=== PATIENT | female | born 1940 | race Caucasian/White ===

== ENCOUNTER 2021-09-22 13:00 | Outpatient (RCR) | payer MEDICARE, SELFPAY | END 2022-09-06 11:02 | disposition home or self-care (01) | PROVIDERS: PCP Physician Assistant Medical; Visit Provider Physician Assistant Medical | DX: I89.0 Lymphedema, not elsewhere classified (principal); Z51.89 Encounter for other specified aftercare | CPT/HCPCS: 97140; 97530; 97535 ==

== ENCOUNTER 2021-11-16 10:32 | Day surgery (SDC) | payer MEDICARE, SELFPAY ==
[2021-11-16 11:11] VITALS: BMI 28.5
[2021-11-16 11:17] VITALS: BP 122/59; PULSE 67; RESP 20; TEMP 36.3; O2SAT 97
[2021-11-16] MEDS: KETOROLAC OPHTH 0.5% 1 DROP EYE-RIGHT ×3 (11:35→12:28)
[2021-11-16] MEDS: TETRACAINE 0.5% OPHTH 1 DROP EYE-RIGHT (12:43)
[2021-11-16] MEDS: BALANCED SALT IRRIG SOLN 15 ML EYE-RIGHT (12:47)
[2021-11-16] MEDS: TRYPAN BLUE 0.5 ML SYRINGE EYE-RIGHT (12:47)
[2021-11-16] MEDS: BRIMONIDINE TARTRATE 0.2% OPHTH 1 DROP EYE-RIGHT (13:03)
--- NOTE | 2021-11-16 13:10 | W.ANESCHARGE ---
Anesthesia Charges Start Date/Time Anesthesia Start Date: 11/16/21 Anesthesia Start Time: 12:34 Stop Date/Time Anesthesia Stop Date: 11/16/21 Anesthesia Stop Time: 13:07 Summary Emergency: No Extremes of Age: Over 71-CPT 43387
--- NOTE | 2021-11-16 13:13 | W.ANESCHARGE ---
Anesthesia Charges Start Date/Time Anesthesia Start Date: 11/16/21 Anesthesia Start Time: 12:34 Stop Date/Time Anesthesia Stop Date: 11/16/21 Anesthesia Stop Time: 13:07 Summary Emergency: No Extremes of Age: Over 71-CPT 33487
[2021-11-16 13:17] VITALS: BP 137/65; PULSE 65; RESP 18; TEMP 36.2; O2SAT 97
--- NOTE | 2021-11-16 13:42 | SUR.PHASEII ---
Per Dr. Lang, patient is following up with Dr. Rivas. Post-op eye drops given per Dr. Rivas orders.
--- NOTE | 2021-11-16 14:32 | P.PCN_ITS ---
Procedure Note Date Seen: 11/16/21 Will [facility] bill your pro fee for this procedure?: No Procedure: NAME OF PROCEDURE Meera phacoemulsification, right eye, with posterior chamber lens implant. PREOPERATIVE DIAGNOSIS Nuclear sclerotic cortical combined cataract, right eye. POSTOPERATIVE DIAGNOSIS Nuclear sclerotic cortical combined cataract, right eye. INDICATIONS FOR PROCEDURE The patient has noted that his vision in the right eye is failing. Severity 7/10. Unable to correct with glasses/contact lenses; has disabling night glare when driving, difficulty reading. Because of this, the patient elected to proceed with surgical repair. I have explained the risks, benefits, alternative treatments to the patient including possible loss of the eye under correction, over correction, need for more surgery. The patient understands, accepts, and elects to proceed with surgical repair. PROCEDURE The right eye was dilated with a combination 1% Mydriacyl, 2.5% phenylephrine with topical Ocufen and Vigamox applied to the corneal surface. The patient was brought to the main operating room where under IV sedation, after pausing to identify the correct patient, correct intraoperative lens, power 28.5 diopters, the right eye was prepped and draped in usual sterile fashion for intraocular surgery. A lid speculum was placed and a paracentesis created at 12 o'clock. The chamber was filled with OVD air and trypan and entered temporally with a keratome. A continuous tear capsulotomy was performed. The nucleus was hydrodissected and emulsified with local anesthetic and emulsified in a chop technique in the capsular bag. Residual cortex was cleaned. The capsule was clear. At this point, ZCBOO 28.5 diopter posterior chamber lens implant was injected into the capsular bag and was well centered. Residual OVD was cleaned from behind the implant from the capsular bag. The incision hydrated and noted to be leak free. Topical Alphagan, pilocarpine, and Vigamox were applied to the corneal surface and the patient returned to recovery in good condition having tolerated the procedure well. CONDITION ON DISCHARGE Satisfactory. Surgeon: Sven Lang MD
== END 2021-11-16 13:35 | disposition home or self-care (01) ==
LOC: OR 10:33
PROVIDERS: PCP Physician Assistant Medical; Visit Provider Ophthalmology
PROC: (CPT 66984; principal; 2021-11-16 12:00)
DX: H25.811 Combined forms of age-related cataract, right eye (principal)
CPT/HCPCS: 66984; 00142; 99100; A9270; J2250; J3010; S0020; V2632

== ENCOUNTER 2021-12-13 15:25 | Outpatient (CLI) | payer MEDICARE, SELFPAY ==
[2021-12-13 17:16] LABS: Prothrombin Time 32.8 Seconds
[2021-12-13 17:22] LABS: INR 3.03 (0.91-1.10)
== END 2021-12-13 15:26 | disposition home or self-care (01) ==
LOC: NFLDREF 15:26
PROVIDERS: PCP Physician Assistant Medical; Visit Provider Physician Assistant Medical
DX: Z79.01 Long term (current) use of anticoagulants (principal)
CPT/HCPCS: 85610

== ENCOUNTER 2022-01-18 12:43 | Day surgery (SDC) | payer MEDICARE, SELFPAY ==
[2022-01-18] MEDS: TETRACAINE 0.5% OPHTH 1 DROP EYE-LEFT (13:27)
[2022-01-18] MEDS: KETOROLAC OPHTH 0.5% 1 DROP EYE-LEFT ×6 (13:32→13:49)
[2022-01-18 13:33] VITALS: BMI 28.7
[2022-01-18 13:37] VITALS: BP 125/53; PULSE 66; RESP 20; TEMP 36.5; O2SAT 96
--- NOTE | 2022-01-18 15:02 | W.ANESCHARGE ---
Anesthesia Charges Start Date/Time Anesthesia Start Date: 01/18/22 Anesthesia Start Time: 12:34 Stop Date/Time Anesthesia Stop Date: 01/18/22 Anesthesia Stop Time: 13:07 Summary Emergency: No Extremes of Age: Over 71-CPT 24216
[2022-01-18] MEDS: TETRACAINE 0.5% OPHTH 2 DROP EYE-LEFT (15:34)
[2022-01-18] MEDS: TRYPAN BLUE 0.5 ML SYRINGE EYE-LEFT (15:38)
[2022-01-18] MEDS: BALANCED SALT IRRIG SOLN 15 ML EYE-LEFT (15:38)
--- NOTE | 2022-01-18 15:41 | W.ANESCHARGE ---
Anesthesia Charges Start Date/Time Anesthesia Start Date: 01/18/22 Anesthesia Start Time: 15:31 Stop Date/Time Anesthesia Stop Date: 01/18/22 Anesthesia Stop Time: 15:51 Summary Emergency: No Extremes of Age: Over 71-CPT 17129
--- NOTE | 2022-01-18 15:58 | P.PCN_ITS ---
Procedure Note Date Seen: 01/18/22 Will [facility] bill your pro fee for this procedure?: No Procedure Description: Left eye dilated 1% Mydriacyl 2.5% phenylephrine Ocufen Vigamox to operating room time out identified patient procedure implant sterile prep and drape lid speculum 6 o'clock paracentesis viscoelastic Surgeon: Sven Lang MD
[2022-01-18 16:00] VITALS: BP 141/80; PULSE 75; RESP 20; TEMP 36.3; O2SAT 94
--- NOTE | 2022-01-18 16:46 | W.ANESCHARGE ---
Anesthesia Charges Start Date/Time Anesthesia Start Date: 01/18/22 Anesthesia Start Time: 15:31 Stop Date/Time Anesthesia Stop Date: 01/18/22 Anesthesia Stop Time: 15:51 Summary Emergency: No
--- NOTE | 2022-03-14 16:50 | P.PCN_ITS ---
Procedure Note Date Seen: 01/18/22 Will [facility] bill your pro fee for this procedure?: No Surgeon: Sven Lang MD
--- NOTE | 2022-03-14 16:50 | PM.PROC ---
Procedure Note Date Seen: 01/18/22 Will [facility] bill your pro fee for this procedure?: No Surgeon: Sven Lang MD
== END 2022-01-18 16:37 | disposition home or self-care (01) ==
PROVIDERS: PCP Physician Assistant Medical; Visit Provider Ophthalmology
PROC: (CPT 66984; principal; 2022-01-18 14:05)
DX: H25.812 Combined forms of age-related cataract, left eye (principal)
CPT/HCPCS: 66984; 00142; 99100; A9270; J2250; J3010; S0020; V2632

== ENCOUNTER 2022-05-06 08:46 | Observation (INO) | payer MEDICARE, SELFPAY ==
[2022-05-06] VITALS (7 sets, daily range): BP systolic 119–145; BP diastolic 58–84; PULSE 78–124; RESP 16–20; TEMP 36.9–37.1; O2SAT 94–98; BMI 27.4; BMI 32.7
--- NOTE | 2022-05-06 09:02 | ED.GENADULT ---
HPI - General Adult General Time Seen by Provider: 09:02 Date Seen: 05/06/22 Chief complaint: Shortness of Breath/Dyspnea Stated complaint: Shortness of breath Time Seen by Provider: 05/06/22 09:02 Source: patient and RN notes reviewed Mode of arrival: ambulatory Limitations: no limitations History of Present Illness HPI narrative: Patient is an 81-year-old female coming in not feeling well for a couple of days. She has had diminished appetite, some nausea. She does endorse some diarrheal stools but that is not necessarily abnormal for her. Last night she had a little discomfort in her abdomen but no abdominal pain now. She thinks she has had some low-grade fevers up to 100 at home. Denies any cough or respiratory symptoms outside of starting to feel short of breath. No chest pain. Does have a history of atrial fibrillation and is chronically anticoagulated with Coumadin. She does feel achy. Denies any skin changes. Really has not ate much in the last couple of days. Notes no increased swelling. Has not had any known ill contacts, no travel. Related Data Home Medications Medication Instructions Recorded Confirmed warfarin 1 mg tablet 2 - 3 mg PO .UD 08/26/21 05/06/22 enalapril maleate 20 mg tablet 20 mg PO BID 10/14/21 05/06/22 melatonin 5 mg capsule 5 mg PO .Bedtime as needed PRN 10/14/21 02/23/22 Previous Rx's Medication Instructions Recorded furosemide 20 mg tablet 20 mg PO QDAY #90 tabs 11/08/21 diclofenac sodium 1 % topical gel 4 g topical QID #100 grams 01/25/22 amiodarone 200 mg tablet 100 mg PO DAILY #45 tabs 04/04/22 carvedilol 25 mg tablet 25 mg PO BID #60 tabs 04/19/22 Allergies Allergy/AdvReac Type Severity Reaction Status Date / Time oxycodone Allergy Unknown Confusion Verified 02/23/22 10:10 Review of Systems Status of ROS: Reports: 10 or more systems reviewed and unremarkable except as noted in History and below [facility] [place] Medical History (Updated 05/06/22 @ 11:54 by Jennifer Humphries MD) Acute gallstone pancreatitis Cyst of pancreas History of herpes zoster (11/25/12) History of non-Hodgkin's lymphoma (06/04/12) Malignant neoplasm of breast (06/04/12) Migration of pancreatic stent Surgical History (Updated 09/02/21 @ 13:42 by Reginald Villalpando) History of atrioventricular mayito ablation (06/04/12) History of breast biopsy (06/04/12) History of cholecystectomy History of endoscopic retrograde cholangiopancreatography Social History Smoking Status: Never smoker How often do you have a drink containing alcohol: monthly or less AUDIT-C Alcohol total score: 1 Non-prescribed substance use: denies use Exam Const: Vital Signs, click to edit/add: Vital Signs - 24 hr 05/06/22 08:50 Temperature 98.8 F Pulse Rate [Pulse Oximeter] 124 H Respiratory Rate 18 Blood Pressure [Ri ght Upper Arm] 145/84 H Pulse Oximetry 94 Oxygen Delivery Me thod Room Air Documenting provider has reviewed patient's vital signs: yes Common normals: no apparent distress, average body habitus, oriented x3, no limitations, healthy appearing, alert and well nourished General appearance: cooperative, comfortable, well kempt, well developed and frail appearing HENMT: Common normals: normocephalic, head/scalp atraumatic and hearing grossly normal bilaterally Head and scalp: normocephalic and atraumatic Eye: Common normals: PERRL, EOMs intact bilaterally, conjunctivae normal and no scleral icterus Conjunctiva: conjunctiva(e) normal Pupil: PERRL Neck & C-Spine: Common normals: full ROM, no lymphadenopathy, supple, no meningeal signs and thyroid normal Thyroid: thyroid normal Resp: Common normals: normal respiratory effort, no retractions, no use of accessory muscles and clear to auscultation bilaterally Effort & inspection: able to speak in complete sentences Auscultation: clear to auscultation bilaterally Other: Does have some kyphosis. Is able to sit up on her own. Cardio: Common normals: no murmurs Rate: tachycardic GI: Common normals: Normal to inspection, nondistended, normoactive bowel sounds present, soft to palpation, non-tender, no hepatosplenomegaly and no masses Palpation: soft and no hepatosplenomegaly Extremity: Other: Has no lower extremity edema. Neuro: Common normals: oriented x3, moves all extremities, no focal motor deficits and no sensory deficits noted Sensorium/orientation: alert Meningeal signs: no meningeal signs Psych: Appearance: well kempt Course Course Hospital Course: Patient is currently tachycardic, ill feeling. This could be a resultant sinus tachycardia from illness and possible dehydration verses stimulated atrial fibrillation from underlying illness. Other arrhythmias are possible, I have asked nursing staff to obtain an EKG. She will be on cardiac monitoring and pulse oximetry. She is seemingly presenting with some type of illness. This could be COVID or other respiratory illness, viral and bacterial will be considered. GI pathology such as gastroenteritis, other underlying infective GI issues will be considered as well. Reevaluation(s) Reevaluation #1: Mina is resting comfortably. Not short of breath at rest but she does get short of breath if she is up. She is having no chest pain. Reviewed with her that it is looking like this is more congestive heart failure. Her troponin is mildly elevated. We will trend with a 2nd 1 at a 3 hour interval in about another hour. She is also told that the procalcitonin is elevated. She did just leave a urinalysis. There is possibility of infection but she has no significant symptomatology point in in any specific direction. Her COVID and viral swab is negative. She did get 250 mL fluid on arrival, is not worse from a respiratory standpoint. Obviously, am not giving her more fluids at this time. Await urinalysis, consider further imaging based on procalcitonin. Time: 11:39 Consultations Consultation #1: Have spoken with Dr. Hastings, will obtain a 2nd blood culture on this patient. He is fine accepting her as she is chest pain-free. This is likely a demand or secondary issue. He agrees that we need to look for underlying infectious etiology. Her urinalysis is back it is nitrate positive. Will get her 2nd blood culture with her follow-up troponin for trending. She will need to come in to have her troponins trended overnight anyways. Possible echo consideration tomorrow depending on what is found. He will be assuming care. IA potentially would consider doing chest abdomen pelvis imaging on her with CT scan, will defer to Dr. Hastings. We are holding off antibiotics until we get the 2nd blood culture, he will be assuming that responsibility. Time: 11:51 Vital Signs Vital signs: Initial Vital Signs Temperature 98.8 F 05/06/22 08:50 Temperature Source Temporal Artery Scan 05/06/22 08:50 Pulse Rate 124 H 05/06/22 08:50 Respiratory Rate 18 05/06/22 08:50 Blood Pressure 145/84 H 05/06/22 08:50 Blood Pressure Mean 104 05/06/22 08:50 Blood Pressure Position Supine 05/06/22 08:50 Pulse Oximetry 94 05/06/22 08:50 Oxygen Delivery Method 05/06/22 08:50 Vital Signs Temperature 98.8 F 05/06/22 08:50 Pulse Rate 124 H 05/06/22 08:50 Respiratory Rate 18 05/06/22 08:50 Blood Pressure 145/84 H 05/06/22 08:50 Pulse Oximetry 94 05/06/22 08:50 Oxygen Delivery Method 05/06/22 08:50 Temperature 98.8 F 05/06/22 08:50 Pulse Rate 124 H 05/06/22 08:50 Respiratory Rate 18 05/06/22 08:50 Blood Pressure 145/84 H 05/06/22 08:50 Pulse Oximetry 94 05/06/22 08:50 Oxygen Delivery Method 05/06/22 08:50 Medical Decision Making Lab Data Lab results reviewed: Yes I reviewed the patient's lab results Labs: Lab Results 05/06/22 05/06/22 05/06/22 Range/Units 09:01 09:32 09:32 WBC 6.99 (4.50-11.00) K/uL RBC 4.65 (4.00-5.20) m/uL Hgb 14.3 (12.0-16.0) gm/dL Hct 42.7 (33.0-51.0) % MCV 92 (80-100) fL MCH 31 (26-34) pg MCHC 34 (32-36) gm/dL RDW Coeff of Dipti 13.1 (11.5-15.5) % Plt Count 235 (140-440) K/uL Neut % (Auto) 89.2 H (42.0-72.0) % Lymph % (Auto) 5.3 L (20-44) % Cameron % (Auto) 5.3 (0.0-11.0) % Eos % (Auto) 0.0 (0.0-7.0) % Baso % (Auto) 0.1 (0.0-3.0) % Neut # (Auto) 6.20 (1.7-7.0) K/uL Lymph # (Auto) 0.40 L (0.90-2.90) K/uL Cameron # (Auto) 0.40 (0.00-0.90) K/UL Eos # (Auto) 0.00 (0.00-0.50) K/uL Baso # (Auto) 0.01 (0.00-0.30) K/uL ESR (2-20) mm/hr INR (0.91-1.10) VBG pH (7.32-7.43) VBG pCO2 (40-50) mmHG VBG pO2 (25-47) mmHG VBG HCO3 (21-28) mmol/L Sodium (135-149) mmol/L Potassium (3.6-5.1) mmol/L Chloride (96-114) mmol/L Carbon Dioxide (20-32) mmol/L BUN (7-30) mg/dL Creatinine (0.5-1.5) mg/dL Estimated Creat Clear Estimated GFR ml/min Glucose (60-115) mg/dL Lactate (0.5-1.9) mmol/L Calcium (8.4-10.6) mg/dL Magnesium (1.5-2.6) mg/dL Total Bilirubin (0.1-1.5) mg/dL AST (12-35) U/L ALT (4-35) U/L Alkaline Phosphatase (40-150) U/L Troponin I (0.01-0.04) ng/mL C-Reactive Protein Cancelled NT-Pro-B Natriuret Pep pg/mL Total Protein (6.0-8.3) g/dL Albumin (3.3-5.0) g/dL Procalcitonin (<0.50) ng/mL Urine Color (Yellow) Urine Appearance (Clear) Urine pH (5.0-8.5) Ur Specific [place] (1.000-1.030) Urine Protein (Negative) Urine Glucose (UA) (Negative) Urine Ketones (Negative) Urine Blood (Negative) Urine Nitrite (Negative) Urine Bilirubin (Negative) Urine Urobilinogen (0.2-1.0) Ur Leukocyte Esterase (Negative) SARS-CoV-2 (PCR) Negative SARS-CoV-2 (Negative) Influenza Type A (PCR) Negative PCR FLU A (Negative) Influenza Type B (PCR) Negative PCR FLU B (Negative) RSV (PCR) Negative PCR RSV (Negative) 05/06/22 05/06/22 05/06/22 Range/Units 09:32 09:32 09:32 WBC (4.50-11.00) K/uL RBC (4.00-5.20) m/uL Hgb (12.0-16.0) gm/dL Hct (33.0-51.0) % MCV (80-100) fL MCH (26-34) pg MCHC (32-36) gm/dL RDW Coeff of Dipti (11.5-15.5) % Plt Count (140-440) K/uL Neut % (Auto) (42.0-72.0) % Lymph % (Auto) (20-44) % Cameron % (Auto) (0.0-11.0) % Eos % (Auto) (0.0-7.0) % Baso % (Auto) (0.0-3.0) % Neut # (Auto) (1.7-7.0) K/uL Lymph # (Auto) (0.90-2.90) K/uL Cameron # (Auto) (0.00-0.90) K/UL Eos # (Auto) (0.00-0.50) K/uL Baso # (Auto) (0.00-0.30) K/uL ESR 28 H (2-20) mm/hr INR (0.91-1.10) VBG pH 7.459 H (7.32-7.43) VBG pCO2 38 L (40-50) mmHG VBG pO2 55.4 H (25-47) mmHG VBG HCO3 27 (21-28) mmol/L Sodium 136 (135-149) mmol/L Potassium 3.5 L (3.6-5.1) mmol/L Chloride 103 (96-114) mmol/L Carbon Dioxide 25 (20-32) mmol/L BUN 12 (7-30) mg/dL Creatinine 0.8 (0.5-1.5) mg/dL Estimated Creat Clear 42.00 Estimated GFR 74 ml/min Glucose 155 H (60-115) mg/dL Lactate 1.6 (0.5-1.9) mmol/L Calcium 9.2 (8.4-10.6) mg/dL Magnesium 1.6 (1.5-2.6) mg/dL Total Bilirubin 1.1 (0.1-1.5) mg/dL AST 24 (12-35) U/L ALT 18 (4-35) U/L Alkaline Phosphatase 49 (40-150) U/L Troponin I 0.11 H* (0.01-0.04) ng/mL C-Reactive Protein 7.1 H NT-Pro-B Natriuret Pep 02725 pg/mL Total Protein 7.6 (6.0-8.3) g/dL Albumin 4.1 (3.3-5.0) g/dL Procalcitonin 9.07 H (<0.50) ng/mL Urine Color (Yellow) Urine Appearance (Clear) Urine pH (5.0-8.5) Ur Specific [place] (1.000-1.030) Urine Protein (Negative) Urine Glucose (UA) (Negative) Urine Ketones (Negative) Urine Blood (Negative) Urine Nitrite (Negative) Urine Bilirubin (Negative) Urine Urobilinogen (0.2-1.0) Ur Leukocyte Esterase (Negative) SARS-CoV-2 (PCR) (Negative) Influenza Type A (PCR) (Negative) Influenza Type B (PCR) (Negative) RSV (PCR) (Negative) 05/06/22 05/06/22 Range/Units 09:32 11:00 WBC (4.50-11.00) K/uL RBC (4.00-5.20) m/uL Hgb (12.0-16.0) gm/dL Hct (33.0-51.0) % MCV (80-100) fL MCH (26-34) pg MCHC (32-36) gm/dL RDW Coeff of Dipti (11.5-15.5) % Plt Count (140-440) K/uL Neut % (Auto) (42.0-72.0) % Lymph % (Auto) (20-44) % Cameron % (Auto) (0.0-11.0) % Eos % (Auto) (0.0-7.0) % Baso % (Auto) (0.0-3.0) % Neut # (Auto) (1.7-7.0) K/uL Lymph # (Auto) (0.90-2.90) K/uL Cameron # (Auto) (0.00-0.90) K/UL Eos # (Auto) (0.00-0.50) K/uL Baso # (Auto) (0.00-0.30) K/uL ESR (2-20) mm/hr INR 1.69 H (0.91-1.10) VBG pH (7.32-7.43) VBG pCO2 (40-50) mmHG VBG pO2 (25-47) mmHG VBG HCO3 (21-28) mmol/L Sodium (135-149) mmol/L Potassium (3.6-5.1) mmol/L Chloride (96-114) mmol/L Carbon Dioxide (20-32) mmol/L BUN (7-30) mg/dL Creatinine (0.5-1.5) mg/dL Estimated Creat Clear Estimated GFR ml/min Glucose (60-115) mg/dL Lactate (0.5-1.9) mmol/L Calcium (8.4-10.6) mg/dL Magnesium (1.5-2.6) mg/dL Total Bilirubin (0.1-1.5) mg/dL AST (12-35) U/L ALT (4-35) U/L Alkaline Phosphatase (40-150) U/L Troponin I (0.01-0.04) ng/mL C-Reactive Protein NT-Pro-B Natriuret Pep pg/mL Total Protein (6.0-8.3) g/dL Albumin (3.3-5.0) g/dL Procalcitonin (<0.50) ng/mL Urine Color Yellow (Yellow) Urine Appearance Cloudy A (Clear) Urine pH 5.5 (5.0-8.5) Ur Specific [place] 1.020 (1.000-1.030) Urine Protein 3+ A (Negative) Urine Glucose (UA) Negative (Negative) Urine Ketones Trace A (Negative) Urine Blood 2+ A (Negative) Urine Nitrite Positive A (Negative) Urine Bilirubin Negative (Negative) Urine Urobilinogen 0.2 (0.2-1.0) Ur Leukocyte Esterase Negative (Negative) SARS-CoV-2 (PCR) (Negative) Influenza Type A (PCR) (Negative) Influenza Type B (PCR) (Negative) RSV (PCR) (Negative) Imaging Data Chest x-ray: Attestation: I have reviewed the pertinent imaging results. My impression: No infiltrate or effusion noted, question central increased vascular pattern. Will await Radiology over-read. Radiologist's impression: Patient: MINA RIVERA Facility:?[facility] Patient ID:?[id number] Site Patient ID:?[id number]. Site :?[id number] Study:?XRay Chest 1 VIEW PORTABLE-05/06/2022 9:26:26 AM Ordering Physician:Gene Rodriguez Final Report: INDICATION: Dyspnea COMPARISON: February 05, 2021 TECHNIQUE: Portable AP sitting single view study FINDINGS: TUBES AND LINES: Pacer/ICD normally located HEART AND MEDIASTINUM: The heart size is normal. The mediastinal contour appears normal for patient age. LUNGS AND PLEURAL SPACES: Vascular congestion likely representing congestive heart failure/early pulmonary edema.The pleural spaces are unremarkable. OSSEOUS STRUCTURES: Age-appropriate appearance. No acute focal finding. IMPRESSION: ICD normally located. Heart size normal. CHF pattern. No pleural effusion or pneumothorax. Dictated by Nir Leong MD @ 05/06/2022 9:47:42 AM (Electronic Signature) Critical Care Time Critical Care Time Critical Care Time: No Discharge Plan Discharge Clinical Impression: Urinary tract infection, Elevated troponin I level, Shortness of breath, Congestive heart failure, Elevated procalcitonin Patient Disposition: Admitted As Inpatient Condition: Stable Prescriptions: No Action furosemide 20 mg tablet 20 mg PO QDAY Qty: 90 3RF melatonin 5 mg capsule 5 mg PO .Bedtime as needed PRN enalapril maleate 20 mg tablet 20 mg PO BID diclofenac sodium 1 % gel 4 g topical QID Qty: 100 0RF Rx Instructions: apply to single knee, ankle, foot; for foot includes sole/toes/top of foot warfarin 1 mg tablet 2 - 3 mg PO .UD Protocol: Dose Management Condition: Sunday Dose/Route: 2.5 mg Instruction: 2.5 x 1 mg tablets Condition: Sunday Dose/Route: 2.5 mg Instruction: 2.5 x 1 mg tablets Condition: Sunday Dose/Route: 2.5 mg Instruction: 2.5 x 1 mg tablets Condition: Sunday Dose/Route: 3 mg Instruction: 3 x 1 mg tablets Condition: Dose/Route: 2.5 mg Instruction: 2.5 x 1 mg tablets Condition: Sunday Dose/Route: 2.5 mg Instruction: 2.5 x 1 mg tablets Condition: Sunday Dose/Route: 2.5 mg Instruction: 2.5 x 1 mg tablets Protocol Text: Adjustment Start Date: Sunday02/24/22 INR Value: 4.71 INR Date: 02/23/22 Recheck Date: 03/03/22 Rx Instructions: 2MG ON Sunday and 3mg all other days amiodarone 200 mg tablet 100 mg PO DAILY Qty: 45 3RF carvedilol 25 mg tablet 25 mg PO BID Qty: 60 0RF Follow Up/Referrals: Sanjuanita Goldman, JACQUELINEC [Primary Care Provider] -
--- NOTE | 2022-05-06 09:08 | CRLHL7_ITS ---
For Patients: As a result of the Century Cures Act, medical imaging exams and procedure reports are released immediately into your electronic medical record. You may view this report before your referring provider. If you have questions, please contact your health care provider. INDICATION: Dyspnea COMPARISON: February 05, 2021 TECHNIQUE: Portable AP sitting single view study FINDINGS: TUBES AND LINES: Pacer/ICD normally located HEART AND MEDIASTINUM: The heart size is normal. The mediastinal contour appears normal for patient age. LUNGS AND PLEURAL SPACES: Vascular congestion likely representing congestive heart failure/early pulmonary edema.The pleural spaces are unremarkable. OSSEOUS STRUCTURES: Age-appropriate appearance. No acute focal finding. IMPRESSION: ICD normally located. Heart size normal. CHF pattern. No pleural effusion or pneumothorax. Dictated by Nir Leong MD @ 05/06/2022 9:47:42 AM (Electronically Signed)
[2022-05-06 09:39] LABS: Basophils Absolute Auto 0.01 K/uL (0.00-0.30); Basophils Percent Auto 0.1 % (0.0-3.0); HCO3 VBG 27 mmol/L (21-28); Hematocrit 42.7 % (33.0-51.0); Hemoglobin* 14.3 gm/dL (12.0-16.0); Immature Granulocytes Abs Auto 0.01 K/uL (0.00-0.30); Immature Granulocytes Pct Auto 0.1 %; Lactate* 1.6 mmol/L (0.5-1.9); Lymphocytes Percent Auto 5.3 % (20-44); Mean Corpuscular HGB Conc 34 gm/dL (32-36); Mean Corpuscular Hemoglobin 31 pg (26-34); Mean Corpuscular Volume 92 fL (80-100); Monocytes Percent Auto 5.3 % (0.0-11.0); Neutrophils Percent Auto 89.2 % (42.0-72.0); PCO2 VBG 38 mmHG (40-50); PO2 VBG 55.4 mmHG (25-47); Platelet Count* 235 K/uL (140-440); RDW Coefficient of Variation % 13.1 % (11.5-15.5); Red Blood Count 4.65 m/uL (4.00-5.20); White Blood Count* 6.99 K/uL (4.50-11.00); pH VBG 7.459 (7.32-7.43)
[2022-05-06 09:42] LABS: Slide Review Reflex No
[2022-05-06] MEDS: 0.9 % SODIUM CHLORIDE 250 ml 250 ML IV (09:44)
[2022-05-06 09:47] LABS: PCR FLU A Negative PCR FLU A (Negative); PCR FLU B Negative PCR FLU B (Negative); PCR RSV Negative PCR RSV (Negative); SARS PCR* Negative SARS-CoV-2 (Negative)
[2022-05-06 10:15] LABS: Albumin* 4.1 g/dL (3.3-5.0); Chloride* 103 mmol/L (96-114)
[2022-05-06 10:16] LABS: Potassium* 3.5 mmol/L (3.6-5.1); Sodium* 136 mmol/L (135-149)
[2022-05-06 10:17] LABS: Erythrocyte SedimentationRate* 28 mm/hr (2-20); INR 1.69 (0.91-1.10); Prothrombin Time 20.8 Seconds
[2022-05-06 10:18] LABS: Alkaline Phosphatase* 49 U/L (40-150); Aspartate Amino Transferase* 24 U/L (12-35); Bilirubin Total* 1.1 mg/dL (0.1-1.5); Carbon Dioxide* 25 mmol/L (20-32); Creatinine* 0.8 mg/dL (0.5-1.5); Estimated Glomerular Filt Rate 74 ml/min; Total Protein* 7.6 g/dL (6.0-8.3)
[2022-05-06 10:19] LABS: Alanine Aminotransferase* 18 U/L (4-35); Blood Urea Nitrogen* 12 mg/dL (7-30); Calcium* 9.2 mg/dL (8.4-10.6); Glucose* 155 mg/dL (60-115); Magnesium* 1.6 mg/dL (1.5-2.6)
[2022-05-06 10:21] LABS: C Reactive Protein* 7.1 mg/dL (0.5-1.0)
[2022-05-06 10:34] LABS: NT Pro B Type NatriureticPept* 18400 pg/mL; Troponin I* 0.11 ng/mL (0.01-0.04)
[2022-05-06 10:35] LABS: Procalcitonin* 9.07 ng/mL (<0.50)
[2022-05-06 11:19] LABS: Appearance Urine Cloudy (Clear); Bilirubin Urine Negative (Negative); Blood Urine 2+ (Negative); Color Urine Yellow (Yellow); Glucose Urine Negative (Negative); Ketones Urine Trace (Negative); Leukocyte Esterase Urine Negative (Negative); Nitrite Urine Positive (Negative); Protein Urine 3+ (Negative); Urobilinogen Urine 0.2 (0.2-1.0); pH Urine 5.5 (5.0-8.5)
[2022-05-06 12:28] LABS: Bacteria Urine Many; RBC Urine 0-2 (0-2); Squamous Epithelial Cell Urine Few (None-Few)
[2022-05-06 13:17] LABS: D Dimer Quantitative* 0.64 ug/ml (0.00-0.50)
[2022-05-06 13:33] LABS: Troponin I* 0.25 ng/mL (0.01-0.04)
[2022-05-06] MEDS: FUROSEMIDE 20 MG TABLET PO (13:39)
[2022-05-06] MEDS: cefTRIAXone 1 GM in 0.9 % SODIUM CHLORIDE Mini-bag 100 ML IVPB (13:39)
[2022-05-06] MEDS: ASPIRIN 81 MG TAB.CHEW 162 MG PO (13:46)
--- NOTE | 2022-05-06 15:18 | P.IMHP_ITS ---
Hospitalist- H&P: ADOLFO History of Present Illness Date Seen: 05/06/22 Chief complaint: Shortness of breath Narrative: Ruthann Castle is a 81 year old female with history of heart failure, breast cancer, AFib, admitted through the emergency department with a 2 day history of fever chills fatigue malaise anorexia and 1 day history of dyspnea. Patient reports she was in her usual state of health until 2 days ago when she had onset of feeling ill. She noted that she felt tired and weak and achy. She then noted that she was feeling hot and cold. The last 2 days she has checked her temperature and she has had low-grade fevers with temperatures around 100?. Last night she was sleeping in her recliner chair and she noted that she was short of breath. She did not clearly note that it is affected by sleeping position, supine or upright. Prior to this she was generally feeling well. 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 She has not felt like she has had significant cold or coughing. Not had a sore throat. She has not had nausea vomiting. She did lose her appetite. No chest pain or abdominal pain. She has mild chronic diarrhea which has not changed. No blood in her stool. She is not aware of urinary frequency or dysuria or flank pain. She has not had skin changes including rash or erythema or swelling of her legs. He does have a history of heart failure. She has a pacemaker defibrillator. She has a history of V-tach and atrial fibrillation both. Last echo that I could find in her records was from 2016 showing a decreased left ventricular ejection fraction of 38%. She had inferior and mid posterior segment wall motion abnormalities. [id number] mitral regurg. She is on anticoagulation for atrial fibrillation and her INR today is 1.69. Review of Systems Narrative: Prior to last today she was generally feeling well. Review of systems otherwise unremarkable. [facility] Medical History Acute gallstone pancreatitis Cyst of pancreas History of herpes zoster (11/25/12) History of non-Hodgkin's lymphoma (06/04/12) Malignant neoplasm of breast (06/04/12) Migration of pancreatic stent Surgical History History of atrioventricular mayito ablation (06/04/12) History of breast biopsy (06/04/12) History of cholecystectomy History of endoscopic retrograde cholangiopancreatography Social History (Updated 05/06/22 @ 15:26 by Corwin Hastings MD) Narrative: She lives alone in [place]. She lives with her 2 dogs and 2 cats. Her son Nakul and her son Jayden are both designated healthcare power of molding supervisor. Code status is full. She does not smoke. She drinks alcohol about once a month. Smoking Status: Never smoker Do you use any of these nicotine containing products: None Second hand tobacco smoke exposure: No How often do you have a drink containing alcohol: monthly or less AUDIT-C Alcohol total score: 1 Non-prescribed substance use: denies use service: No Meds Home Medications and Allergies Home Medications Medication Instructions Recorded Confirmed Type warfarin 1 mg tablet 2 - 3 mg PO .UD 08/26/21 05/06/22 History enalapril maleate 20 mg tablet 20 mg PO BID 10/14/21 05/06/22 History melatonin 5 mg capsule 5 mg PO .Bedtime as needed PRN 10/14/21 02/23/22 History Home Medication Comments: Warfarin 2.5 mg daily except 3 mg on Sunday Enalapril 20 mg twice daily Melatonin 5 mg at bedtime as needed furosemide 20 mg daily Amiodarone 100 mg daily Carvedilol 25 mg twice daily Diclofenac topically q.i.d. p.r.n. Allergies Allergy/AdvReac Type Severity Reaction Status Date / Time oxycodone Allergy Unknown Confusion Verified 02/23/22 10:10 Exam Narrative: Exam Narrative: She is alert and appears in no distress. She gives her own history. Head is without trauma. Eyes normal. No facial asymmetry. Oropharynx is normal except she is edentulous. Neck is supple without mass or adenopathy. Respirations are clear to auscultation. No wheezing rales rhonchi. Good air exchange all lung aguiar. Cardiovascular: S1, S2, regular rate and rhythm. No murmur gallop or rub. Abdomen: Bowel sounds active. Abdomen is soft without tenderness or mass. external genitalia normal. Extremities with intact pulses. No edema. She moves all 4 extremities well. Const: Vital Signs, click to edit/add: Vital Signs - 24 hr 05/06/22 08:50 05/06/22 09:08 05/06/22 14:37 Temperature 98.8 F Pulse Rate 103 H Pulse Rate [Apical ] Pulse Rate [Pulse Oximeter] 124 H Respiratory Rate 18 Blood Pressure [Le ft Arm] Blood Pressure [Ri ght Upper Arm] 145/84 H Pulse Oximetry 94 98 Oxygen Delivery Me thod Room Air 05/06/22 12:48 05/06/22 12:48 Temperature 98.7 F Pulse Rate Pulse Rate [Apical ] 100 Pulse Rate [Pulse Oximeter] Respiratory Rate 20 20 Blood Pressure [Le ft Arm] 124/71 Blood Pressure [Ri ght Upper Arm] Pulse Oximetry 94 94 Oxygen Delivery Me thod Room Air Room Air Documenting provider has reviewed patient's vital signs: yes Hospitalist - H&P: Result Labs Labs: Short CBC 05/06/22 Range/Units 09:32 WBC 6.99 (4.50-11.00) K/uL Hgb 14.3 (12.0-16.0) gm/dL Hct 42.7 (33.0-51.0) % Plt Count 235 (140-440) K/uL BMP 05/06/22 09:32 Sodium 136 Potassium 3.5 L Chloride 103 Carbon Dioxide 25 BUN 12 Creatinine 0.8 Glucose 155 H Calcium 9.2 Cardiac Enzymes 05/06/22 05/06/22 Range/Units 09:32 12:24 Troponin I 0.11 H* 0.25 H* (0.01-0.04) ng/mL Liver Function 05/06/22 Range/Units 09:32 Total Bilirubin 1.1 (0.1-1.5) mg/dL AST 24 (12-35) U/L ALT 18 (4-35) U/L Alkaline Phosphatase 49 (40-150) U/L Albumin 4.1 (3.3-5.0) g/dL Urine 05/06/22 Range/Units 11:00 Urine Color Yellow (Yellow) Urine Appearance Cloudy A (Clear) Urine pH 5.5 (5.0-8.5) Ur Specific [place] 1.020 (1.000-1.030) Urine Protein 3+ A (Negative) Urine Glucose (UA) Negative (Negative) Imaging Chest x-ray: Attestation: I have reviewed the pertinent imaging results. (No acute inf iltrate. Question increased pulmonary congestion.) Assessment and Plan Assessment and plan (1) NSTEMI (non-ST elevated myocardial infarction): Problem comment: Initial troponin 0.11 repeat 0.25. Having dyspnea without chest pain. Electrocardiogram is nondiagnostic. No definite acute ST-T changes. Status: Acute (2) Urinary tract infection: Problem comment: Mildly abnormal urine. Initiate empiric antibiotic with ceftriaxone pending cultures Status: Acute (3) Shortness of breath: Problem comment: Consider heart failure, anginal equivalent, pneumonia as potential causes Status: Acute (4) Congestive heart failure: Problem comment: Does not appear to be in florid heart failure at this time. Due to concern over infection will be cautious with diuresis. History of heart failure with reduced ejection fraction. Repeat echo. Continue heart failure medications. Status: Acute (5) Elevated procalcitonin: Problem comment: Concern for systemic infection based on elevated procalcitonin and fever Status: Acute (6) Atrial fibrillation: Problem comment: Historically with good rate control. Now appears to have a regular sinus tachycardia, likely due to acute illness or sepsis Status: Acute (7) Lymphedema of upper extremity: Problem comment: Right upper extremity due to breast cancer and axillary node dissection Status: Acute (8) Chronic kidney disease: Status: Acute (9) Anticoagulation goal of INR 2 to 3: Status: Acute Plan Admit for IV antibiotics pending culture and for ongoing cardiac monitoring and trending of troponin and monitoring for signs and symptoms of ACS. Total time spent today is 80 minutes, 50 minutes in coordination of care discussing with patient son and other providers ongoing management of ACS, heart failure, fever of uncertain etiology.
[2022-05-06] MEDS: WARFARIN 3 MG TABLET PO (16:38)
[2022-05-06 20:31] LABS: Troponin I* 0.44 ng/mL (0.01-0.04)
--- NOTE | 2022-05-06 21:07 | P.IMPN_ITS ---
Progress Note: A&P Assessment and plan (1) NSTEMI (non-ST elevated myocardial infarction): Problem details: Initial troponin 0.11 repeat 0.25, now 0.44. No chest pain. Dyspnea has resolved. Electrocardiogram is nondiagnostic and unchanged. No definite acute ST-T changes. She is on carvedilol, baby aspirin, and enalapril. She is also on amiodarone, warfarin, and furosemide among other medications. - I spoke with Dr. Gonzalez from [facility]. I sent him the EKGs from 12:44 pm and 7:41 pm. He recommended starting heparin IV or lovenox at a therapeutic dose until her INR is therapeutic. He also recommended no aspirin since she will be on lovenox, heparin, or therapeutic warfarin, and wanted her to have an ECHO. I verified that the ECHO is ordered and I have started her on therapeutic lovenox. Status: Acute (2) Elevated troponin I level: Status: Acute Subjective Time Seen by Provider: 20:50 Date Seen: 05/06/22 Interval history: Ruthann's 8pm troponin was 0.44 up from 0.25, which was up from 0.1 earlier today. I went to see her and she said she is feeling much better. In fact, she chatted happily with me, asking me questions before I got to ask her how she was feeling. She said she was able to get up to the bathroom without dyspnea. She denies CP or chest discomfort and says she never did have that. Exam Narrative: Exam Narrative: General: No acute distress. Awake, alert, oriented x3. No pallor. No jaundice. No diaphoresis. Oropharynx: Clear. Mucous membranes moist. Cardiovascular: Regular rate and rhythm. No murmurs, gallops, or rubs. Respiratory: Clear to auscultation bilaterally. No wheezes or crackles. Extremities: No pedal edema. Const: Vital Signs, click to edit/add: Vital Signs - 24 hr 05/06/22 08:50 05/06/22 09:08 05/06/22 14:37 Temperature 98.8 F Pulse Rate 103 H Pulse Rate [Apical ] Pulse Rate [Pulse Oximeter] 124 H Respiratory Rate 18 Blood Pressure [Le ft Arm] Blood Pressure [Ri ght Upper Arm] 145/84 H Pulse Oximetry 94 98 Oxygen Delivery Me thod Room Air 05/06/22 12:48 05/06/22 12:48 05/06/22 15:30 Temperature 98.7 F 98.4 F Pulse Rate Pulse Rate [Apical ] 100 91 Pulse Rate [Pulse Oximeter] Respiratory Rate 20 20 18 Blood Pressure [Le ft Arm] 124/71 119/58 L Blood Pressure [Ri ght Upper Arm] Pulse Oximetry 94 94 95 Oxygen Delivery Me thod Room Air Room Air Room Air Labs Labs: Laboratory Results - last 24 hr 05/06/22 05/06/22 05/06/22 09:01 09:32 09:32 WBC 6.99 RBC 4.65 Hgb 14.3 Hct 42.7 MCV 92 MCH 31 MCHC 34 RDW Coeff of Dipti 13.1 Plt Count 235 Neut % (Auto) 89.2 H Lymph % (Auto) 5.3 L [place] % (Auto) 5.3 Eos % (Auto) 0.0 Baso % (Auto) 0.1 Neut # (Auto) 6.20 Lymph # (Auto) 0.40 L [place] # (Auto) 0.40 Eos # (Auto) 0.00 Baso # (Auto) 0.01 ESR INR D-Dimer Quant (PE/DVT) VBG pH VBG pCO2 VBG pO2 VBG HCO3 Sodium Potassium Chloride Carbon Dioxide BUN Creatinine Estimated Creat Clear Estimated GFR Glucose Lactate Calcium Magnesium Total Bilirubin AST ALT Alkaline Phosphatase Troponin I C-Reactive Protein Cancelled NT-Pro-B Natriuret Pep Total Protein Albumin Procalcitonin Urine Color Urine Appearance Urine pH Ur Specific [place] Urine Protein Urine Glucose (UA) Urine Ketones Urine Blood Urine Nitrite Urine Bilirubin Urine Urobilinogen Ur Leukocyte Esterase Urine RBC Urine WBC Ur Squamous Epith Cells Urine Bacteria SARS-CoV-2 (PCR) Negative SARS-CoV-2 Influenza Type A (PCR) Negative PCR FLU A Influenza Type B (PCR) Negative PCR FLU B RSV (PCR) Negative PCR RSV 05/06/22 05/06/22 05/06/22 09:32 09:32 09:32 WBC RBC Hgb Hct MCV MCH MCHC RDW Coeff of Dipti Plt Count Neut % (Auto) Lymph % (Auto) [place] % (Auto) Eos % (Auto) Baso % (Auto) Neut # (Auto) Lymph # (Auto) [place] # (Auto) Eos # (Auto) Baso # (Auto) ESR 28 H INR D-Dimer Quant (PE/DVT) VBG pH 7.459 H VBG pCO2 38 L VBG pO2 55.4 H VBG HCO3 27 Sodium 136 Potassium 3.5 L Chloride 103 Carbon Dioxide 25 BUN 12 Creatinine 0.8 Estimated Creat Clear 42.00 Estimated GFR 74 Glucose 155 H Lactate 1.6 Calcium 9.2 Magnesium 1.6 Total Bilirubin 1.1 AST 24 ALT 18 Alkaline Phosphatase 49 Troponin I 0.11 H* C-Reactive Protein 7.1 H NT-Pro-B Natriuret Pep 74600 Total Protein 7.6 Albumin 4.1 Procalcitonin 9.07 H Urine Color Urine Appearance Urine pH Ur Specific [place] Urine Protein Urine Glucose (UA) Urine Ketones Urine Blood Urine Nitrite Urine Bilirubin Urine Urobilinogen Ur Leukocyte Esterase Urine RBC Urine WBC Ur Squamous Epith Cells Urine Bacteria SARS-CoV-2 (PCR) Influenza Type A (PCR) Influenza Type B (PCR) RSV (PCR) 05/06/22 05/06/22 05/06/22 09:32 11:00 12:24 WBC RBC Hgb Hct MCV MCH MCHC RDW Coeff of Dipti Plt Count Neut % (Auto) Lymph % (Auto) [place] % (Auto) Eos % (Auto) Baso % (Auto) Neut # (Auto) Lymph # (Auto) [place] # (Auto) Eos # (Auto) Baso # (Auto) ESR INR 1.69 H D-Dimer Quant (PE/DVT) 0.64 H VBG pH VBG pCO2 VBG pO2 VBG HCO3 Sodium Potassium Chloride Carbon Dioxide BUN Creatinine Estimated Creat Clear Estimated GFR Glucose Lactate Calcium Magnesium Total Bilirubin AST ALT Alkaline Phosphatase Troponin I 0.25 H* C-Reactive Protein NT-Pro-B Natriuret Pep Total Protein Albumin Procalcitonin Urine Color Yellow Urine Appearance Cloudy A Urine pH 5.5 Ur Specific [place] 1.020 Urine Protein 3+ A Urine Glucose (UA) Negative Urine Ketones Trace A Urine Blood 2+ A Urine Nitrite Positive A Urine Bilirubin Negative Urine Urobilinogen 0.2 Ur Leukocyte Esterase Negative Urine RBC 0-2 Urine WBC 2-5 Ur Squamous Epith Cells Few Urine Bacteria Many A SARS-CoV-2 (PCR) Influenza Type A (PCR) Influenza Type B (PCR) RSV (PCR) 05/06/22 19:48 WBC RBC Hgb Hct MCV MCH MCHC RDW Coeff of Dipti Plt Count Neut % (Auto) Lymph % (Auto) [place] % (Auto) Eos % (Auto) Baso % (Auto) Neut # (Auto) Lymph # (Auto) [place] # (Auto) Eos # (Auto) Baso # (Auto) ESR INR D-Dimer Quant (PE/DVT) VBG pH VBG pCO2 VBG pO2 VBG HCO3 Sodium Potassium Chloride Carbon Dioxide BUN Creatinine Estimated Creat Clear Estimated GFR Glucose Lactate Calcium Magnesium Total Bilirubin AST ALT Alkaline Phosphatase Troponin I 0.44 H* C-Reactive Protein NT-Pro-B Natriuret Pep Total Protein Albumin Procalcitonin Urine Color Urine Appearance Urine pH Ur Specific [place] Urine Protein Urine Glucose (UA) Urine Ketones Urine Blood Urine Nitrite Urine Bilirubin Urine Urobilinogen Ur Leukocyte Esterase Urine RBC Urine WBC Ur Squamous Epith Cells Urine Bacteria SARS-CoV-2 (PCR) Influenza Type A (PCR) Influenza Type B (PCR) RSV (PCR)
[2022-05-06] MEDS: carvediloL 25 MG TABLET PO (21:13)
[2022-05-06] MEDS: ENALAPRIL MALEATE 10 MG TABLET 20 MG PO (21:13)
[2022-05-06] MEDS: SODIUM CHLORIDE 0.9 % (FLUSH) 10 ML SYRINGE 5 ML IVF (21:15)
[2022-05-06] MEDS: ENOXAPARIN 80 MG/0.8 ML INJ SUBCUT (21:56)
[2022-05-07] VITALS (9 sets, daily range): BP systolic 93–140; BP diastolic 52–74; PULSE 59–83; RESP 14–18; TEMP 35.7–37.1; O2SAT 94–100
--- NOTE | 2022-05-07 05:47 | PC.NURSE ---
Shift note: Pt is pleasant and cooperate with care and treatment. Denied pain, SOB, cough and diarrhea. Vitally stable.
[2022-05-07 07:09] LABS: Basophils Percent Auto 0.7 % (0.0-3.0); Chloride* 103 mmol/L (96-114); Eosinophils Percent Auto 1.5 % (0.0-7.0); Hematocrit 39.3 % (33.0-51.0); Immature Granulocytes Pct Auto 0.2 %; Lymphocytes Percent Auto 16.3 % (20-44); Mean Corpuscular HGB Conc 33 gm/dL (32-36); Mean Corpuscular Hemoglobin 31 pg (26-34); Mean Corpuscular Volume 93 fL (80-100); Monocytes Percent Auto 10.9 % (0.0-11.0); Neutrophils Percent Auto 70.4 % (42.0-72.0); Platelet Count* 213 K/uL (140-440); Potassium* 3.1 mmol/L (3.6-5.1); RDW Coefficient of Variation % 13.2 % (11.5-15.5); Red Blood Count 4.22 m/uL (4.00-5.20); Sodium* 137 mmol/L (135-149); White Blood Count* 4.05 K/uL (4.50-11.00)
[2022-05-07 07:12] LABS: Creatinine* 0.9 mg/dL (0.5-1.5); Est. Creatinine Clearance* 32.23; Estimated Glomerular Filt Rate 65 ml/min
[2022-05-07 07:13] LABS: Blood Urea Nitrogen* 15 mg/dL (7-30); Calcium* 8.6 mg/dL (8.4-10.6); Carbon Dioxide* 28 mmol/L (20-32); Glucose* 109 mg/dL (60-115); Slide Review Reflex No
[2022-05-07 07:16] LABS: C Reactive Protein* 8.8 mg/dL (0.5-1.0)
[2022-05-07 07:36] LABS: Troponin I* 0.36 ng/mL (0.01-0.04)
[2022-05-07 07:48] LABS: INR 1.68 (0.91-1.10); Prothrombin Time 20.7 Seconds
[2022-05-07] MEDS: FUROSEMIDE 20 MG TABLET PO (09:27)
[2022-05-07] MEDS: AMIODARONE 200 MG TABLET 100 MG PO (09:27)
[2022-05-07] MEDS: carvediloL 25 MG TABLET PO ×2 (09:28→21:09)
[2022-05-07] MEDS: ENOXAPARIN 80 MG/0.8 ML INJ SUBCUT ×2 (09:28→21:10)
[2022-05-07] MEDS: ENALAPRIL MALEATE 10 MG TABLET 20 MG PO ×2 (09:31→21:10)
[2022-05-07] MEDS: SODIUM CHLORIDE 0.9 % (FLUSH) 10 ML SYRINGE 5 ML IVF ×2 (10:15→21:12)
[2022-05-07] MEDS: cefTRIAXone 1 GM in 0.9 % SODIUM CHLORIDE Mini-bag 100 ML IVPB (10:15)
--- NOTE | 2022-05-07 13:58 | PM.IMPN1 ---
Progress Note: A&P Assessment and plan (1) NSTEMI (non-ST elevated myocardial infarction): Problem details: Initial troponin 0.11 repeat 0.25, now 0.44. No chest pain. Dyspnea has resolved. Electrocardiogram is nondiagnostic and unchanged. No definite acute ST-T changes. She is on carvedilol, baby aspirin, and enalapril. She is also on amiodarone, warfarin, and furosemide among other medications. - I spoke with Dr. Gonzalez from [facility]. I sent him the EKGs from 12:44 pm and 7:41 pm. He recommended starting heparin IV or lovenox at a therapeutic dose until her INR is therapeutic. He also recommended no aspirin since she will be on lovenox, heparin, or therapeutic warfarin, and wanted her to have an ECHO. I verified that the ECHO is ordered and I have started her on therapeutic lovenox. Status: Acute (2) Elevated procalcitonin: Problem details: Concern for systemic infection based on elevated procalcitonin and fever Status: Acute (3) Atrial fibrillation: Problem details: Historically with good rate control. Now appears to have a regular sinus tachycardia, likely due to acute illness or sepsis Status: Acute (4) Congestive heart failure: Problem details: Does not appear to be in florid heart failure at this time. Due to concern over infection will be cautious with diuresis. History of heart failure with reduced ejection fraction. Repeat echo. Continue heart failure medications. Status: Acute (5) Heart failure with reduced ejection fraction: Problem details: Thought secondary to chemotherapy for breast cancer years ago. Status: Acute (6) Shortness of breath: Problem details: Consider heart failure, anginal equivalent, pneumonia as potential causes Status: Acute (7) Fever: Problem details: Patient had fever and chills along with flu-like constitutional symptoms prior to admission. Cause for this is uncertain. COVID, influenza, RSV tests are all negative. Symptoms largely resolved today. Status: Acute Plan Continue in hospital for culture results, monitoring for infectious illness and cardiac monitoring and to optimize treatment for coronary disease. Will discuss with [facility] a outpatient plan if she is well and can be discharged tomorrow. Time Spent With Patient Total time spent: Total time spent today is 40 minutes, 30 minutes in coordination of care discussing with patient and her granddaughter ongoing evaluation management of heart disease and current illness Subjective Date Seen: 05/07/22 Interval history: 81-year-old female seen in followup of hospitalization with fever, fatigue, malaise and dyspnea. The time of admission there was concern about an acute flu-like illness. Her symptoms from that have largely resolved. She also had dyspnea which was thought either related to a flu-like illness or heart failure or anginal equivalent. She was found to have an elevated troponin. Troponin went from 0.11 up to 0.44 last night and down to 0.36 today. Because of the increase in her troponin she was started on aspirin and enoxaparin pending a therapeutic INR. Today she reports feeling fine. Specifically denies chest pain, dyspnea, fever or chills. Her appetite is better. The fatigue and malaise are better. She has a known history of heart failure with reduced ejection fraction. She tells me this is due to chemotherapy for her breast cancer rather than previous coronary disease. Echocardiogram was repeated today and shows that she has ejection fraction of 25-30% with wall motion abnormalities in the posterior inferior septal and anterior septal areas. Also noted was mild to moderate aortic insufficiency. Exam Narrative: Exam Narrative: She is alert appears in no distress. Respirations are clear to auscultation. Cardiovascular: S1, S2, regular rate and rhythm. No murmur gallop or rub. Abdomen: Bowel sounds active. Abdomen is soft without tenderness or mass. Extremities without edema. Const: Vital Signs, click to edit/add: Vital Signs - 24 hr 05/06/22 14:37 05/06/22 15:30 05/06/22 19:00 Temperature 98.4 F 98.8 F Pulse Rate 103 H Pulse Rate [Apical ] 91 87 Respiratory Rate 18 16 Blood Pressure [Le ft Arm] 119/58 L 131/64 Pulse Oximetry 95 94 Oxygen Delivery Me thod Room Air Room Air 05/06/22 23:00 05/06/22 23:00 05/06/22 23:00 Temperature 98.8 F Pulse Rate 78 Pulse Rate [Apical ] 89 Respiratory Rate 16 16 Blood Pressure [Le ft Arm] 125/77 Pulse Oximetry 94 Oxygen Delivery Me thod Room Air 05/07/22 02:41 05/07/22 07:30 05/07/22 08:24 Temperature 98.2 F Pulse Rate 67 Pulse Rate [Apical ] 71 74 Respiratory Rate 16 18 Blood Pressure [Le ft Arm] 106/58 L Pulse Oximetry 94 Oxygen Delivery Me thod Room Air 05/07/22 08:24 05/07/22 11:44 Temperature 97.3 F L 97.5 F L Pulse Rate Pulse Rate [Apical ] 74 70 Respiratory Rate 18 18 Blood Pressure [Le ft Arm] 116/74 93/56 L Pulse Oximetry 94 96 Oxygen Delivery Me thod Room Air Room Air Documenting provider has reviewed patient's vital signs: yes Labs Labs: Laboratory Results - last 24 hr 05/06/22 05/07/22 05/07/22 19:48 05:44 05:44 WBC 4.05 L RBC 4.22 Hgb 13.0 Hct 39.3 MCV 93 MCH 31 MCHC 33 RDW Coeff of Dipti 13.2 Plt Count 213 Neut % (Auto) 70.4 Lymph % (Auto) 16.3 L [place] % (Auto) 10.9 Eos % (Auto) 1.5 Baso % (Auto) 0.7 Neut # (Auto) 2.90 Lymph # (Auto) 0.70 L [place] # (Auto) 0.40 Eos # (Auto) 0.10 Baso # (Auto) 0.00 INR Sodium 137 Potassium 3.1 L Chloride 103 Carbon Dioxide 28 BUN 15 Creatinine 0.9 Estimated Creat Clear 32.23 Estimated GFR 65 Glucose 109 Calcium 8.6 Troponin I 0.44 H* 0.36 H* C-Reactive Protein 8.8 H 05/07/22 05:44 WBC RBC Hgb Hct MCV MCH MCHC RDW Coeff of Dipti Plt Count Neut % (Auto) Lymph % (Auto) [place] % (Auto) Eos % (Auto) Baso % (Auto) Neut # (Auto) Lymph # (Auto) [place] # (Auto) Eos # (Auto) Baso # (Auto) INR 1.68 H Sodium Potassium Chloride Carbon Dioxide BUN Creatinine Estimated Creat Clear Estimated GFR Glucose Calcium Troponin I C-Reactive Protein
[2022-05-07] MEDS: WARFARIN 5 MG TABLET PO (16:22)
--- NOTE | 2022-05-07 19:38 | PC.NURSE ---
End of shift-- Very pleasant and cooperative, alert and oriented patient. VSS and pt is afebrile. SPO2 maintained >90% on RA. She denied any pain. LS CTA. 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 She was up to the BR and chain with SBA and tolerated it well. Report to SARKIS Tavares.
[2022-05-07] MEDS: ROSUVASTATIN CALCIUM 10 MG TABLET PO (21:09)
[2022-05-08 03:00] VITALS: BP 119/62; PULSE 83; RESP 18; TEMP 36.6; O2SAT 94
--- NOTE | 2022-05-08 06:56 | PC.NURSE ---
Shift note: Pt is doing well. Pleasant and cooperated with care. Vitally stable. Has adequate amount of sleep. No pain, SOB, and cough reported.
[2022-05-08 07:00] VITALS: BP 124/62; PULSE 75; PULSE 77; RESP 18; TEMP 36.6; O2SAT 94
[2022-05-08 07:31] LABS: Basophils Percent Auto 0.3 % (0.0-3.0); Eosinophils Percent Auto 2.7 % (0.0-7.0); Hematocrit 37.7 % (33.0-51.0); Hemoglobin* 12.2 gm/dL (12.0-16.0); Immature Granulocytes Pct Auto 0.3 %; Lymphocytes Percent Auto 16.9 % (20-44); Mean Corpuscular HGB Conc 32 gm/dL (32-36); Mean Corpuscular Hemoglobin 30 pg (26-34); Mean Corpuscular Volume 94 fL (80-100); Monocytes Percent Auto 12.9 % (0.0-11.0); Neutrophils Percent Auto 66.9 % (42.0-72.0); Platelet Count* 219 K/uL (140-440); RDW Coefficient of Variation % 13.3 % (11.5-15.5); Red Blood Count 4.01 m/uL (4.00-5.20); White Blood Count* 3.72 K/uL (4.50-11.00)
[2022-05-08 07:34] LABS: Slide Review Reflex No
[2022-05-08 07:43] LABS: INR 1.96 (0.91-1.10); Prothrombin Time 23.3 Seconds
[2022-05-08 07:44] LABS: Chloride* 105 mmol/L (96-114)
[2022-05-08 07:45] LABS: Potassium* 3.2 mmol/L (3.6-5.1); Sodium* 136 mmol/L (135-149)
[2022-05-08 07:47] LABS: Creatinine* 0.8 mg/dL (0.5-1.5); Est. Creatinine Clearance* 32.23; Estimated Glomerular Filt Rate 74 ml/min
[2022-05-08 07:48] LABS: Blood Urea Nitrogen* 13 mg/dL (7-30); Calcium* 8.4 mg/dL (8.4-10.6); Carbon Dioxide* 27 mmol/L (20-32); Glucose* 103 mg/dL (60-115)
[2022-05-08 08:04] LABS: Procalcitonin* 8.93 ng/mL (<0.50)
[2022-05-08 08:06] LABS: C Reactive Protein* 4.4 mg/dL (0.5-1.0); Troponin I* 0.23 ng/mL (0.01-0.04)
[2022-05-08] MEDS: ENALAPRIL MALEATE 10 MG TABLET 20 MG PO (08:59)
[2022-05-08] MEDS: AMIODARONE 200 MG TABLET 100 MG PO (08:59)
[2022-05-08] MEDS: FUROSEMIDE 20 MG TABLET PO (08:59)
[2022-05-08] MEDS: carvediloL 25 MG TABLET PO (08:59)
[2022-05-08] MEDS: SODIUM CHLORIDE 0.9 % (FLUSH) 10 ML SYRINGE 5 ML IVF (09:00)
[2022-05-08] MEDS: cefTRIAXone 1 GM in 0.9 % SODIUM CHLORIDE Mini-bag 100 ML IVPB (09:02)
[2022-05-08] MEDS: ENOXAPARIN 80 MG/0.8 ML INJ SUBCUT (10:15)
[2022-05-08] MEDS: POTASSIUM BICARB 25 MEQ EFFERVESCENT TAB 50 MEQ PO (10:40)
[2022-05-08 11:00] VITALS: BP 110/55; PULSE 79; RESP 18; TEMP 37.1; O2SAT 94
[2022-05-08 11:12] VITALS: PULSE 77; RESP 18; TEMP 37.1
--- NOTE | 2022-05-08 12:20 | PC.NURSE ---
Discharge: Patient pleasant and cooperative. Patient vitally stable, lungs clear, BS WNL, IV removed, catheter intact. Patient denies pain, and independent in room. Patient tolerating regular diet, urinating, and had 1 mod loose BM. Patient tele= 1 degree HB w/BBB. Patient signed discharge form, belongings sheet not filled out. Patient left the floor by wheelchair to home at 1207.
--- NOTE | 2022-05-08 12:51 | PM.DS1 ---
DS: Providers Provider Date Seen: 05/08/22 Date of admission: 05/06/22 15:16 Primary care physician: Sanjuanita Goldman PA-C Admitting Clinician: Corwin Hastings MD Attending Physician on discharge: Corwin Hastings MD Date of Discharge: 05/08/22 DS: Diagnosis Discharge Diagnosis (1) Fever: Status: Acute Problem details: Patient had fever and chills along with flu-like constitutional symptoms prior to admission. She was diagnosed with a urinary tract infection as the presumptive cause of her symptoms though did not have definite urinary symptoms. Her symptoms of illness all resolved during her hospital stay. Testing for COVID, influenza, RSV were negative. Chest x-ray showed no pneumonia (2) Heart failure with reduced ejection fraction: Status: Acute Problem details: Longstanding history of heart failure with reduced ejection fraction thought secondary to chemotherapy for breast cancer. No previous history of coronary artery disease. No previous coronary angiogram (3) NSTEMI (non-ST elevated myocardial infarction): Status: Acute Problem details: Initial troponin 0.11 increased to 0.44 then decreased to 0.23. No chest pain. Dyspnea has resolved. Electrocardiogram is nondiagnostic and unchanged. No definite acute ST-T changes. Elevation of troponins was thought to be due to type 2 NSTEMI or demand ischemia. I spoke with [facility] who will arrange outpatient follow-up. During her hospital stay she remained entirely asymptomatic without unusual dyspnea, palpitations, chest pain or exercise intolerance. She is on carvedilol and enalapril. She is also on amiodarone, warfarin, and furosemide. INR on admission was subtherapeutic. She received therapeutic enoxaparin until her INR was back to normal. (4) Urinary tract infection: Status: Acute Problem details: On admission the only possible focus of infection for her fever and constitutional symptoms of illness was a urinary tract infection. She was not having specific urinary symptoms but had marked elevation of inflammatory markers and constitutional symptoms. These resolved relatively quickly during her hospital stay. Her urine culture grew out pansensitive E coli. She was treated with ceftriaxone during her hospital stay and discharged on cephalexin. Outpatient follow-up to assure that her constitutional symptoms of illness, inflammatory markers and urinary infection resolve. (5) Anticoagulation goal of INR 2 to 3: Status: Acute Problem details: INR was 1.7 on admission and increased to 2 on discharge. Because she is on antibiotic will need close follow-up of INR and adjusting warfarin as needed. Did look into apixaban as an alternative. Cost was $475/month so patient elected to continue warfarin DS: Summary Hospital Course Hospital Course: 81-year-old female who was in her usual state of health until a couple days prior to admission when she had constitutional symptoms of illness with fatigue malaise myalgias and fever. The day prior to admission she also developed some subjective dyspnea. Initial evaluation did not show a definite cause for her constitutional symptoms of illness and fever. She also had elevation of white count and inflammatory markers and procalcitonin. She did not have urinary symptoms but did have a mildly abnormal urinalysis and culture eventually grew pansensitive E coli. This was the presumed cause of her illness and her symptoms and fever resolved during her hospital stay. She was treated with ceftriaxone during the hospital stay and switch to self lacks an on discharge. She had an elevated troponin on admission of 0.11. She was not having any chest pain. She did have dyspnea starting the day prior to admission. Electrocardiogram was nondiagnostic for acute changes. She does have a history of nonischemic cardiomyopathy with reduced ejection fraction in the 30s due to toxicity from chemotherapy for breast cancer. Troponin was followed during her hospital stay and it leonel to 0.44 and then dropped to 0.23 on the day of discharge. She had no specific cardiac symptoms during her hospital stay and her dyspnea has entirely resolved. She was anticoagulated with chronic warfarin and briefly Lovenox until her INR was therapeutic. I spoke with armature inspector from [facility] who agreed that the abnormal troponin was type 2 non STEMI related to her acute infectious illness rather than large vessel occlusion. At this time he recommends outpatient follow-up which he will arrange for next month. She should get outpatient followup in clinic to determine that her acute febrile illness, presumably a UTI, has resolved and she is having no further symptoms of cardiac ischemia. She will also need follow-up of her INR which was low and her potassium which was borderline low. Status at Discharge Cognitive/behavioral status at discharge: Baseline Functional status at discharge: independent ambulation Overall status at discharge: patient is back to baseline Time Spent with Patient Time attestation: Total time spent providing and/or coordinating discharge services: Time spent: Greater than 30 minutes Exam Narrative: Exam Narrative: She is alert and appears in no distress. She is anxious to go home. Respirations are clear to auscultation. Cardiovascular: S1, S2, regular rate and rhythm. Abdomen: Bowel sounds active. Abdomen is soft without tenderness or mass. Extremities without edema. Const: Vital Signs, click to edit/add: Vital Signs - 24 hr 05/07/22 15:00 05/07/22 15:34 05/07/22 15:10 Temperature 97.3 F L 96.3 F L Pulse Rate 72 Pulse Rate [Apical ] 71 59 L Pulse Rate [Pulse Oximeter] Respiratory Rate 18 14 Blood Pressure [Le ft Arm] 106/52 L 140/72 H Pulse Oximetry 97 100 Oxygen Delivery Me thod Room Air Room Air 05/07/22 15:00 05/07/22 19:00 05/07/22 23:00 Temperature 98.8 F Pulse Rate 71 Pulse Rate [Apical ] 59 L 77 Pulse Rate [Pulse Oximeter] Respiratory Rate 14 16 Blood Pressure [Le ft Arm] 121/62 Pulse Oximetry 96 Oxygen Delivery Il thod Room Air 05/07/22 23:00 05/07/22 23:00 05/08/22 03:00 Temperature 98 F 98 F Pulse Rate Pulse Rate [Apical ] 83 83 Pulse Rate [Pulse Oximeter] Respiratory Rate 16 16 18 Blood Pressure [Le ft Arm] 119/62 119/62 Pulse Oximetry 94 94 Oxygen Delivery Il thod Room Air Room Air 05/08/22 07:00 05/08/22 07:00 05/08/22 07:00 Temperature 98 F Pulse Rate 77 Pulse Rate [Apical ] Pulse Rate [Pulse Oximeter] 75 75 Respiratory Rate 18 18 Blood Pressure [Le ft Arm] 124/62 Pulse Oximetry 94 Oxygen Delivery Il thod Room Air 05/08/22 11:00 05/08/22 11:12 Temperature 98.7 F 98.7 F Pulse Rate 77 Pulse Rate [Apical ] Pulse Rate [Pulse Oximeter] 79 Respiratory Rate 18 18 Blood Pressure [Le ft Arm] 110/55 L Pulse Oximetry 94 Oxygen Delivery Il thod Room Air Documenting provider has reviewed patient's vital signs: yes DS: Data Data Completed and Pending Labs on day of discharge: Labs from last 24 hours 05/08/22 05/08/22 05/08/22 07:13 07:13 07:13 WBC 3.72 L RBC 4.01 Hgb 12.2 Hct 37.7 MCV 94 MCH 30 MCHC 32 RDW Coeff of Dipti 13.3 Plt Count 219 Neut % (Auto) 66.9 Lymph % (Auto) 16.9 L Walton % (Auto) 12.9 H Eos % (Auto) 2.7 Baso % (Auto) 0.3 Neut # (Auto) 2.50 Lymph # (Auto) 0.60 L Walton # (Auto) 0.50 Eos # (Auto) 0.10 Baso # (Auto) 0.00 INR 1.96 H Sodium 136 Potassium 3.2 L Chloride 105 Carbon Dioxide 27 BUN 13 Creatinine 0.8 Estimated Creat Clear 32.23 Estimated GFR 74 Glucose 103 Calcium 8.4 Troponin I 0.23 H* C-Reactive Protein 4.4 H Procalcitonin 8.93 H Preliminary micro results at discharge 05/06/22 12:24 Blood Culture - Preliminary Blood NO GROWTH AFTER 48 HOURS 05/06/22 09:32 Blood Culture - Preliminary Blood NO GROWTH AFTER 48 HOURS Discharge Plan Discharge Disposition: Home, Self-Care Date of Admission: 05/06/22 15:16 Attending Provider on Discharge: Corwin Hastings Primary Care Provider: Sanjuanita Goldman Condition: Stable Anticipated Discharge Date/Time: 05/08/22 13:00 Discharge Medications: New cephalexin 500 mg capsule 500 mg PO TID Qty: 20 0RF Continued furosemide 20 mg tablet 20 mg PO QDAY Qty: 90 3RF melatonin 5 mg capsule 5 mg PO .Bedtime as needed PRN enalapril maleate 20 mg tablet 20 mg PO BID diclofenac sodium 1 % gel 4 g topical QID Qty: 100 0RF Rx Instructions: apply to single knee, ankle, foot; for foot includes sole/toes/top of foot warfarin 1 mg tablet 2 - 3 mg PO .UD Protocol: Dose Management Condition: Sunday Dose/Route: 2.5 mg Instruction: 2.5 x 1 mg tablets Condition: Sunday Dose/Route: 2.5 mg Instruction: 2.5 x 1 mg tablets Condition: Sunday Dose/Route: 2.5 mg Instruction: 2.5 x 1 mg tablets Condition: Sunday Dose/Route: 3 mg Instruction: 3 x 1 mg tablets Condition: Dose/Route: 2.5 mg Instruction: 2.5 x 1 mg tablets Condition: Sunday Dose/Route: 2.5 mg Instruction: 2.5 x 1 mg tablets Condition: Sunday Dose/Route: 2.5 mg Instruction: 2.5 x 1 mg tablets Protocol Text: Adjustment Start Date: Sunday02/24/22 INR Value: 4.71 INR Date: 02/23/22 Recheck Date: 03/03/22 Rx Instructions: 2MG ON Sunday and 3mg all other days amiodarone 200 mg tablet 100 mg PO DAILY Qty: 45 3RF carvedilol 25 mg tablet 25 mg PO BID Qty: 60 0RF Discharge Orders: Discharge Order (Routine); Ordered 05/08/22 Ordered By: Corwin Hastings Patient Education: Cephalexin (By mouth), Heart Attack (DC), Urinary Tract Infection in Older Adults (DC) Additional Instructions: Follow up with your armature inspector at next available appointment Activity Level: Activity as Tolerated Discharge Diet: Regular Follow Up Appointments: Sanjuanita Goldman PA-C [Primary Care Provider] - 05/12/22 12:30 pm (Follow up with Dr. Goldman, at the [facility], they will check- INR and potassium. ) Forms: [employer] Info Instructions
== END 2022-05-08 12:07 | disposition home or self-care (01) ==
LOC: ED 11:54 → MEDSURG 12:45
PROVIDERS: Admitting Provider Family Medicine; Emergency Provider Family Medicine; PCP Physician Assistant Medical; Visit Provider Family Medicine
DX: R50.9 Fever, unspecified (principal); R06.02 Shortness of breath; R79.89 Other specified abnormal findings of blood chemistry
CPT/HCPCS: 36415; 71045; 80048; 80053; 81001; 82803; 83605; 83735; 83880; 84145; 84484; 85025; 85379; 85610; 85651; 86140; 87040; 87086; 87186; 87502; 87634; 87635; 93005; 93306; 94761; 99284; 99285; A9270; G0378; J0696; J1650; J7050

== ENCOUNTER 2022-05-09 10:28 | Inpatient (IN) | payer MEDICARE, SELFPAY ==
[2022-05-09] VITALS (24 sets, daily range): BP systolic 118–155; BP diastolic 65–90; PULSE 73–98; RESP 16–18; TEMP 36.8–38.1; O2SAT 89–94; BMI 28.3; BMI 28.8
--- NOTE | 2022-05-09 11:07 | CRLHL7_ITS ---
For Patients: As a result of the Cures Act, medical imaging exams and procedure reports are released immediately into your electronic medical record. You may view this report before your referring provider. If you have questions, please contact your health care provider. INDICATION: Shortness of breath TECHNIQUE: Chest radiograph 1 view COMPARISON: 05/06/2022 FINDINGS: Mediastinum: The mediastinum is normal in appearance. Mild stable cardiomegaly is noted. There is a left cardiac pacer present with leads in the right atrium and right ventricle. Lung: Reticulonodular infiltrates seen in left lung base with mild pulmonary vascular congestion. No sign of pleural effusion seen. No pneumothorax is identified. Bone and Soft tissue: Unremarkable for age. IMPRESSIONS: 1. Reticulonodular infiltrates seen in left lung base with mild pulmonary vascular congestion. 2. Mild stable cardiomegaly is noted. Dictated by Krzysztof Floyd MD @ 05/09/2022 12:16:37 PM Dictated by: Krzysztof Floyd MD @ 05/09/2022 12:16:42 (Electronically Signed)
--- NOTE | 2022-05-09 11:11 | ED_ITS ---
HPI - General Adult General Time Seen by Provider: 11:11 Date Seen: 05/09/22 Chief complaint: Shortness of Breath/Dyspnea Stated complaint: Shortness of breath, fever Time Seen by Provider: 05/09/22 10:33 Source: patient and family Mode of arrival: wheelchair Limitations: no limitations History of Present Illness HPI narrative: Ruthann is an 81-year-old female past medical history includes non-Hodgkin's lymphoma status post chemotherapy, atrial fibrillation on anticoagulation with Coumadin, heart failure, cardioverter- defibrillator, present from home in [place] presents emergency department via private car with family with weakness and worsening shortness of breath. Patient states she was admitted to the hospital on Sunday for UTI, elevated troponin levels. Patient was discharged yesterday at 12:30 p.m., she states she was feeling well until this morning, she has had a worsening productive cough, green sputum, she did have a fever this morning, she denies any chest pain that she has had worsening exertional shortness of breath. She has also had increased weakness with decreased oral intake, she has chronic orthopnea, she usually ambulates with no difficulty with a walker. She did have a COVID/influenza swab done on hospitalization which was negative. She is currently on Keflex for UTI, she denies any urinary complaints. She denies any chest pain or abdominal pain, some she denies any myalgias arthralgias, no recent falls, she does have some chronic diarrhea. Due to her ongoing weakness shortness breast presents emergency department. Related Data Home Medications Medication Instructions Recorded Confirmed warfarin 1 mg tablet 2 - 3 mg PO .UD 08/26/21 05/09/22 enalapril maleate 20 mg tablet 20 mg PO BID 10/14/21 05/09/22 melatonin 5 mg capsule 5 mg PO HS PRN 10/14/21 05/09/22 Previous Rx's Medication Instructions Recorded furosemide 20 mg tablet 20 mg PO QDAY #90 tabs 11/08/21 diclofenac sodium 1 % topical gel 4 g topical QID #100 grams 01/25/22 amiodarone 200 mg tablet 100 mg PO DAILY #45 tabs 04/04/22 carvedilol 25 mg tablet 25 mg PO BID #60 tabs 04/19/22 Allergies Allergy/AdvReac Type Severity Reaction Status Date / Time oxycodone Allergy Unknown Confusion Verified 02/23/22 10:10 Review of Systems Status of ROS: Reports: 10 or more systems reviewed and unremarkable except as noted in History and below [facility] Medical History Acute gallstone pancreatitis Cyst of pancreas Heart failure with reduced ejection fraction History of herpes zoster (11/25/12) History of non-Hodgkin's lymphoma (06/04/12) Malignant neoplasm of breast (06/04/12) Migration of pancreatic stent Surgical History History of atrioventricular mayito ablation (06/04/12) History of breast biopsy (06/04/12) History of cholecystectomy History of endoscopic retrograde cholangiopancreatography Social History Narrative: She lives alone in [place]. She lives with her 2 dogs and 2 cats. Her son Nakul and her son Jayden are both designated healthcare power of criminal defense attorney. Code status is full. She does not smoke. She drinks alcohol about once a month. Smoking Status: Never smoker Do you use any of these nicotine containing products: None Second hand tobacco smoke exposure: No How often do you have a drink containing alcohol: monthly or less AUDIT-C Alcohol total score: 1 Non-prescribed substance use: denies use service: No Exam Narrative: Exam Narrative: General: No obvious distress sitting comfortably, nontoxic HEENT: Pupils equal round reactive to light, extraocular muscles intact Neck: Supple no JVD Heart: NSR, S1S2 Lungs: Mild bibasilar crackles, no wheezing Abdomen: Soft nontender, bowel sounds present Muscle skeletal: No lower extremity edema Neuro: Alert awake and oriented x3 Const: Vital Signs, click to edit/add: Vital Signs - 24 hr 05/09/22 10:48 05/09/22 11:50 05/09/22 12:00 Temperature 98.2 F Pulse Rate 86 85 Pulse Rate [Right Pulse Oximeter] 94 Respiratory Rate 18 Blood Pressure Blood Pressure [Ri ght Upper Arm] 134/84 Pulse Oximetry 90 91 90 Oxygen Delivery Ak thod Room Air 05/09/22 12:02 Temperature Pulse Rate 84 Pulse Rate [Right Pulse Oximeter] Respiratory Rate Blood Pressure 129/65 Blood Pressure [Ri ght Upper Arm] Pulse Oximetry 90 Oxygen Delivery Me thod Course Course Hospital Course: 11:00 AM: AIDET performed, vitals are stable at this time, workup will include IV peripheral, will obtain EKG, CBC, procalcitonin, CMP, lactate blood cultures, XR chest PA and lateral, COVID/influenza, troponin and BNP, rule out developing pneumonia verses the viral infection versus worsening heart failure. Patient's urine culture showed E coli, pansensitive, she is currently on Keflex. Differential diagnosis include not limited to CAD/mi, PE, pneumothorax, pneumonia and sepsis, less likely aortic dissection. Possibly viral pneumonitis, heart failure, COPD exasperation, asthma exasperation as well as bronchitis. Reevaluation(s) Reevaluation #1: ECG was unchanged, showed a normal sinus rhythm with a non specific intraventricular block with some T-wave abnormality seen on previous, bpm of 85, no acute changes compared to previous. Imaging showed reticulonodular infiltrates seen in left lung base with mild pulmonary vascular congestion, stable cardiomegaly. Recent echo showed an EF of 30% with global left ventricular hypokinesis, the EF is minimally changed since previous. CBC showed no leukocytosis, COVID/influenza/RSV were negative. BNP elevated, troponin 0.13 but improved from previous, ACS less likely, will obtain CT chest rule out pneumonia versus worsening heart failure, patient was in agreement. Time: 12:19 Reevaluation #2: CT imaging showed IMPRESSION: No pulmonary embolism, as questioned. Multifocal pneumonia. Patient and daughter were updated on her imaging results, CT did show a multifocal pneumonia consistent with her symptoms, will cover her with broad- spectrum antibiotics Levaquin 750 mg, vitals have been stable, did speak with Dr. Garcia hospitalist on-call and he will accept care of the patient to a [facility] surgery bed. All questions answered. Time: 14:46 Vital Signs Vital signs: Initial Vital Signs Temperature 98.2 F 05/09/22 10:48 Temperature Source Temporal Artery Scan 05/09/22 10:48 Pulse Rate 94 05/09/22 10:48 Respiratory Rate 18 05/09/22 10:48 Blood Pressure 134/84 05/09/22 10:48 Blood Pressure Mean 100 05/09/22 10:48 Blood Pressure Position Sitting 05/09/22 10:48 Pulse Oximetry 90 05/09/22 10:48 Oxygen Delivery Method 05/09/22 10:48 Vital Signs Temperature 98.2 F 05/09/22 10:48 Pulse Rate 94 05/09/22 10:48 Respiratory Rate 18 05/09/22 10:48 Blood Pressure 134/84 05/09/22 10:48 Pulse Oximetry 90 05/09/22 10:48 Oxygen Delivery Method 05/09/22 10:48 Temperature 98.2 F 05/09/22 10:48 Pulse Rate 84 05/09/22 12:02 Respiratory Rate 18 05/09/22 10:48 Blood Pressure 129/65 05/09/22 12:02 Pulse Oximetry 90 05/09/22 12:02 Oxygen Delivery Method 05/09/22 10:48 Medical Decision Making Lab Data Labs: Lab Results 05/09/22 05/09/22 05/09/22 Range/Units 10:47 11:07 11:30 WBC 4.37 L (4.50-11.00) K/uL RBC 4.29 (4.00-5.20) m/uL Hgb 13.1 (12.0-16.0) gm/dL Hct 40.0 (33.0-51.0) % MCV 93 (80-100) fL MCH 31 (26-34) pg MCHC 33 (32-36) gm/dL RDW Coeff of Dipti 13.0 (11.5-15.5) % Plt Count 242 (140-440) K/uL Neut % (Auto) 80.9 H (42.0-72.0) % Lymph % (Auto) 10.5 L (20-44) % [place] % (Auto) 7.3 (0.0-11.0) % Eos % (Auto) 1.1 (0.0-7.0) % Baso % (Auto) 0.2 (0.0-3.0) % Neut # (Auto) 3.50 (1.7-7.0) K/uL Lymph # (Auto) 0.50 L (0.90-2.90) K/uL [place] # (Auto) 0.30 (0.00-0.90) K/UL Eos # (Auto) 0.00 (0.00-0.50) K/uL Baso # (Auto) 0.00 (0.00-0.30) K/uL INR (0.91-1.10) Sodium (135-149) mmol/L Potassium (3.6-5.1) mmol/L Chloride (96-114) mmol/L Carbon Dioxide (20-32) mmol/L BUN (7-30) mg/dL Creatinine (0.5-1.5) mg/dL Estimated Creat Clear Estimated GFR ml/min Glucose (60-115) mg/dL Lactate (0.5-1.9) mmol/L Calcium (8.4-10.6) mg/dL Total Bilirubin (0.1-1.5) mg/dL AST (12-35) U/L ALT (4-35) U/L Alkaline Phosphatase (40-150) U/L Troponin I (0.01-0.04) ng/mL NT-Pro-B Natriuret Pep pg/mL Total Protein (6.0-8.3) g/dL Albumin (3.3-5.0) g/dL Procalcitonin (<0.50) ng/mL Urine Color Yellow (Yellow) Urine Appearance Clear (Clear) Urine pH 5.5 (5.0-8.5) Ur Specific Rea 1.010 (1.000-1.030) Urine Protein Negative (Negative) Urine Glucose (UA) Negative (Negative) Urine Ketones Negative (Negative) Urine Blood Trace-intact A (Negative) Urine Nitrite Negative (Negative) Urine Bilirubin Negative (Negative) Urine Urobilinogen 0.2 (0.2-1.0) Ur Leukocyte Esterase Negative (Negative) Urine RBC 0-2 (0-2) Urine WBC 0-2 (0-5) Urine WBC Clumps None (None) Ur Squamous Epith Cells Few (None-Few) Urine Bacteria None (None) SARS-CoV-2 (PCR) Negative SARS-CoV-2 (Negative) Influenza Type A (PCR) Negative PCR FLU A (Negative) Influenza Type B (PCR) Negative PCR FLU B (Negative) RSV (PCR) Negative PCR RSV (Negative) 05/09/22 05/09/22 05/09/22 Range/Units 11:30 11:30 11:30 WBC (4.50-11.00) K/uL RBC (4.00-5.20) m/uL Hgb (12.0-16.0) gm/dL Hct (33.0-51.0) % MCV (80-100) fL MCH (26-34) pg MCHC (32-36) gm/dL RDW Coeff of Dipti (11.5-15.5) % Plt Count (140-440) K/uL Neut % (Auto) (42.0-72.0) % Lymph % (Auto) (20-44) % [place] % (Auto) (0.0-11.0) % Eos % (Auto) (0.0-7.0) % Baso % (Auto) (0.0-3.0) % Neut # (Auto) (1.7-7.0) K/uL Lymph # (Auto) (0.90-2.90) K/uL [place] # (Auto) (0.00-0.90) K/UL Eos # (Auto) (0.00-0.50) K/uL Baso # (Auto) (0.00-0.30) K/uL INR 1.81 H (0.91-1.10) Sodium 137 (135-149) mmol/L Potassium 3.8 (3.6-5.1) mmol/L Chloride 99 (96-114) mmol/L Carbon Dioxide 32 (20-32) mmol/L BUN 10 (7-30) mg/dL Creatinine 0.8 (0.5-1.5) mg/dL Estimated Creat Clear 38.75 Estimated GFR 74 ml/min Glucose 127 H (60-115) mg/dL Lactate (0.5-1.9) mmol/L Calcium 9.0 (8.4-10.6) mg/dL Total Bilirubin 0.7 (0.1-1.5) mg/dL AST 29 (12-35) U/L ALT 18 (4-35) U/L Alkaline Phosphatase 43 (40-150) U/L Troponin I 0.13 H* (0.01-0.04) ng/mL NT-Pro-B Natriuret Pep 6630 pg/mL Total Protein 7.3 (6.0-8.3) g/dL Albumin 4.0 (3.3-5.0) g/dL Procalcitonin (<0.50) ng/mL Urine Color (Yellow) Urine Appearance (Clear) Urine pH (5.0-8.5) Ur Specific Rea (1.000-1.030) Urine Protein (Negative) Urine Glucose (UA) (Negative) Urine Ketones (Negative) Urine Blood (Negative) Urine Nitrite (Negative) Urine Bilirubin (Negative) Urine Urobilinogen (0.2-1.0) Ur Leukocyte Esterase (Negative) Urine RBC (0-2) Urine WBC (0-5) Urine WBC Clumps (None) Ur Squamous Epith Cells (None-Few) Urine Bacteria (None) SARS-CoV-2 (PCR) (Negative) Influenza Type A (PCR) (Negative) Influenza Type B (PCR) (Negative) RSV (PCR) (Negative) 05/09/22 05/09/22 05/09/22 Range/Units 11:30 11:30 13:42 WBC (4.50-11.00) K/uL RBC (4.00-5.20) m/uL Hgb (12.0-16.0) gm/dL Hct (33.0-51.0) % MCV (80-100) fL MCH (26-34) pg MCHC (32-36) gm/dL RDW Coeff of Dipti (11.5-15.5) % Plt Count (140-440) K/uL Neut % (Auto) (42.0-72.0) % Lymph % (Auto) (20-44) % [place] % (Auto) (0.0-11.0) % Eos % (Auto) (0.0-7.0) % Baso % (Auto) (0.0-3.0) % Neut # (Auto) (1.7-7.0) K/uL Lymph # (Auto) (0.90-2.90) K/uL [place] # (Auto) (0.00-0.90) K/UL Eos # (Auto) (0.00-0.50) K/uL Baso # (Auto) (0.00-0.30) K/uL INR (0.91-1.10) Sodium (135-149) mmol/L Potassium (3.6-5.1) mmol/L Chloride (96-114) mmol/L Carbon Dioxide (20-32) mmol/L BUN (7-30) mg/dL Creatinine (0.5-1.5) mg/dL Estimated Creat Clear Estimated GFR ml/min Glucose (60-115) mg/dL Lactate 1.0 (0.5-1.9) mmol/L Calcium (8.4-10.6) mg/dL Total Bilirubin (0.1-1.5) mg/dL AST (12-35) U/L ALT (4-35) U/L Alkaline Phosphatase (40-150) U/L Troponin I 0.13 H* (0.01-0.04) ng/mL NT-Pro-B Natriuret Pep pg/mL Total Protein (6.0-8.3) g/dL Albumin (3.3-5.0) g/dL Procalcitonin 7.83 H (<0.50) ng/mL Urine Color (Yellow) Urine Appearance (Clear) Urine pH (5.0-8.5) Ur Specific Rea (1.000-1.030) Urine Protein (Negative) Urine Glucose (UA) (Negative) Urine Ketones (Negative) Urine Blood (Negative) Urine Nitrite (Negative) Urine Bilirubin (Negative) Urine Urobilinogen (0.2-1.0) Ur Leukocyte Esterase (Negative) Urine RBC (0-2) Urine WBC (0-5) Urine WBC Clumps (None) Ur Squamous Epith Cells (None-Few) Urine Bacteria (None) SARS-CoV-2 (PCR) (Negative) Influenza Type A (PCR) (Negative) Influenza Type B (PCR) (Negative) RSV (PCR) (Negative) Discharge Plan Discharge Clinical Impression: Multifocal pneumonia Patient Disposition: Admitted As Inpatient
[2022-05-09 11:36] LABS: Basophils Percent Auto 0.2 % (0.0-3.0); Eosinophils Percent Auto 1.1 % (0.0-7.0); Hemoglobin* 13.1 gm/dL (12.0-16.0); Lymphocytes Percent Auto 10.5 % (20-44); Mean Corpuscular HGB Conc 33 gm/dL (32-36); Mean Corpuscular Hemoglobin 31 pg (26-34); Mean Corpuscular Volume 93 fL (80-100); Monocytes Percent Auto 7.3 % (0.0-11.0); Neutrophils Percent Auto 80.9 % (42.0-72.0); Platelet Count* 242 K/uL (140-440); Red Blood Count 4.29 m/uL (4.00-5.20); White Blood Count* 4.37 K/uL (4.50-11.00)
[2022-05-09 11:47] LABS: Slide Review Reflex No
[2022-05-09 11:53] LABS: Chloride* 99 mmol/L (96-114)
[2022-05-09 11:54] LABS: INR 1.81 (0.91-1.10); Potassium* 3.8 mmol/L (3.6-5.1); Prothrombin Time 21.9 Seconds; Sodium* 137 mmol/L (135-149)
[2022-05-09 11:56] LABS: Aspartate Amino Transferase* 29 U/L (12-35); Bilirubin Total* 0.7 mg/dL (0.1-1.5); Carbon Dioxide* 32 mmol/L (20-32); Creatinine* 0.8 mg/dL (0.5-1.5); Est. Creatinine Clearance* 38.75; Estimated Glomerular Filt Rate 74 ml/min; Total Protein* 7.3 g/dL (6.0-8.3)
[2022-05-09 11:56] LABS: PCR FLU A Negative PCR FLU A (Negative); PCR FLU B Negative PCR FLU B (Negative); PCR RSV Negative PCR RSV (Negative)
[2022-05-09 11:57] LABS: Alanine Aminotransferase* 18 U/L (4-35); Alkaline Phosphatase* 43 U/L (40-150); Blood Urea Nitrogen* 10 mg/dL (7-30); Glucose* 127 mg/dL (60-115)
[2022-05-09 12:13] LABS: Procalcitonin* 7.83 ng/mL (<0.50)
[2022-05-09 12:14] LABS: NT Pro B Type NatriureticPept* 6630 pg/mL; Troponin I* 0.13 ng/mL (0.01-0.04)
[2022-05-09 12:16] LABS: SARS PCR* Negative SARS-CoV-2 (Negative)
--- NOTE | 2022-05-09 12:29 | CRLHL7_ITS ---
For Patients: As a result of the Century Cures Act, medical imaging exams and procedure reports are released immediately into your electronic medical record. You may view this report before your referring provider. If you have questions, please contact your health care provider. INDICATION: [id number]. TECHNIQUE: CT chest PE was acquired with 95 cc Isovue 370 IV contrast. COMPARISON: None. FINDINGS: Heart and vasculature: Contrast opacification of the pulmonary arterial tree is adequate. No sign of pulmonary embolism. Heart size is normal. Thoracic aorta and pulmonary artery are normal in caliber. Aortic arch and coronary artery calcifications. Lungs and pleura: Multifocal ground-glass consolidation greatest in the lingula and bilateral bases. No pleural effusions, pleural thickening, or pneumothorax. Lymph nodes/mediastinum: No mediastinal, hilar, or axillary adenopathy. Chest wall: No masses. Left chest wall pacemaking device/AICD. Upper abdomen: No acute or significant findings. Bones: Unremarkable for age. IMPRESSION: No pulmonary embolism, as questioned. Multifocal pneumonia. Please note that all CT scans at this facility use dose modulation, iterative reconstruction, and/or weight-based dosing when appropriate to reduce radiation dose to as low as reasonably achievable. Dictated by Danish Arango MD @ 05/09/2022 2:24:14 PM (Electronically Signed)
[2022-05-09 12:47] LABS: Appearance Urine Clear (Clear); Color Urine Yellow (Yellow); Glucose Urine Negative (Negative)
[2022-05-09 12:48] LABS: Bilirubin Urine Negative (Negative); Blood Urine Trace-intact (Negative); Ketones Urine Negative (Negative); Nitrite Urine Negative (Negative); Protein Urine Negative (Negative); Urobilinogen Urine 0.2 (0.2-1.0); pH Urine 5.5 (5.0-8.5)
[2022-05-09 12:49] LABS: Leukocyte Esterase Urine Negative (Negative); RBC Urine 0-2 (0-2); Squamous Epithelial Cell Urine Few (None-Few); WBC Urine 0-2 (0-5)
[2022-05-09 14:33] LABS: Troponin I* 0.13 ng/mL (0.01-0.04)
--- NOTE | 2022-05-09 15:10 | P.IMHP_ITS ---
Hospitalist- H&P: [facility] History of Present Illness Date Seen: 05/09/22 Chief complaint: Shortness of breath, fever Narrative: Ruthann Castle is a 81 year old female readmitted to the hospital after discharge yesterday. She was admitted on Sunday, 4 days ago, with a 2 day history of fatigue, anorexia, malaise fever and then dyspnea. At the time of admission there was a question of acute on chronic heart failure. She was never hypoxic and had no respiratory symptoms during her hospital stay. During her hospital stay she had no fever, her vital signs were normal and clinically she felt well. She was treated with ceftriaxone for possible UTI. Urine culture did grow greater than 100,000 colonies of E coli and she was discharged yesterday on cephalexin. During her hospital stay she also had elevation of her inflammatory markers and procalcitonin suggestive of a serious underlying infection. She also had elevation of her troponin which was thought to be due to type 2 non STEMI or stress induced myocardial ischemia. Last night she had recurrence of the symptoms that brought her to the hospital in the 1st place, profound fatigue, anorexia, dyspnea and recurrence of her fever. In the emergency department today evaluation by CT of her chest showed a multifocal pneumonia. She is borderline hypoxic with O2 sats of 90 in 91%. Review of Systems Narrative: Since discharge from the hospital she reports doing well except for the the recurrence of her symptoms of fever, dyspnea, anorexia, fatigue, malaise. No other concerns at this time. Specifically no urinary symptoms. [facility] Medical History Acute gallstone pancreatitis Cyst of pancreas Heart failure with reduced ejection fraction History of herpes zoster (11/25/12) History of non-Hodgkin's lymphoma (06/04/12) Malignant neoplasm of breast (06/04/12) Migration of pancreatic stent Surgical History History of atrioventricular mayito ablation (06/04/12) History of breast biopsy (06/04/12) History of cholecystectomy History of endoscopic retrograde cholangiopancreatography Social History Narrative: She lives alone in [place]. She lives with her 2 dogs and 2 cats. Her son Nakul and her son Jayden are both designated healthcare power of commonwealth attorney. Code status is full. She does not smoke. She drinks alcohol about once a month. Smoking Status: Never smoker Do you use any of these nicotine containing products: None Second hand tobacco smoke exposure: No How often do you have a drink containing alcohol: monthly or less AUDIT-C Alcohol total score: 1 Non-prescribed substance use: denies use service: No Meds Home Medications and Allergies Home Medications Medication Instructions Recorded Confirmed Type warfarin 1 mg tablet 2 - 3 mg PO .UD 08/26/21 05/09/22 History enalapril maleate 20 mg tablet 20 mg PO BID 10/14/21 05/09/22 History melatonin 5 mg capsule 5 mg PO HS PRN 10/14/21 05/09/22 History Home Medication Comments: Discharged on cephalexin yesterday. Three days of ceftriaxone before that. Allergies Allergy/AdvReac Type Severity Reaction Status Date / Time oxycodone Allergy Unknown Confusion Verified 02/23/22 10:10 Exam Narrative: Exam Narrative: She is alert and appears in no distress. Eyes normal. Oropharynx edentulous. Neck is supple without mass or adenopathy. Respirations with and occasional coarse expiratory crackle. No wheezing. No consolidation. Cardiovascular: S1, S2, regular rate and rhythm. No murmur gallop or rub. Abdomen is soft without tenderness or mass. Extremities with intact pulses. No edema. Good capillary refill. No rash. Const: Vital Signs, click to edit/add: Vital Signs - 24 hr 05/09/22 10:48 05/09/22 11:50 05/09/22 12:00 Temperature 98.2 F Pulse Rate 86 85 Pulse Rate [Right Pulse Oximeter] 94 Respiratory Rate 18 Blood Pressure Blood Pressure [Ri ght Upper Arm] 134/84 Pulse Oximetry 90 91 90 Oxygen Delivery Me thod Room Air 05/09/22 12:02 Temperature Pulse Rate 84 Pulse Rate [Right Pulse Oximeter] Respiratory Rate Blood Pressure 129/65 Blood Pressure [Ri ght Upper Arm] Pulse Oximetry 90 Oxygen Delivery Me thod Documenting provider has reviewed patient's vital signs: yes Hospitalist - H&P: Result Labs Labs: Short CBC 05/09/22 Range/Units 11:30 WBC 4.37 L (4.50-11.00) K/uL Hgb 13.1 (12.0-16.0) gm/dL Hct 40.0 (33.0-51.0) % Plt Count 242 (140-440) K/uL BMP 05/09/22 11:30 Sodium 137 Potassium 3.8 Chloride 99 Carbon Dioxide 32 BUN 10 Creatinine 0.8 Glucose 127 H Calcium 9.0 Cardiac Enzymes 05/09/22 05/09/22 Range/Units 11:30 13:42 Troponin I 0.13 H* 0.13 H* (0.01-0.04) ng/mL Liver Function 05/09/22 Range/Units 11:30 Total Bilirubin 0.7 (0.1-1.5) mg/dL AST 29 (12-35) U/L ALT 18 (4-35) U/L Alkaline Phosphatase 43 (40-150) U/L Albumin 4.0 (3.3-5.0) g/dL Urine 05/09/22 Range/Units 11:07 Urine Color Yellow (Yellow) Urine Appearance Clear (Clear) Urine pH 5.5 (5.0-8.5) Ur Specific [place] 1.010 (1.000-1.030) Urine Protein Negative (Negative) Urine Glucose (UA) Negative (Negative) Imaging CT scan - chest: Radiologist's impression: INDICATION: [id number]. TECHNIQUE: CT chest PE was acquired with 95 cc Isovue 370 IV contrast. COMPARISON: None. FINDINGS: Heart and vasculature: Contrast opacification of the pulmonary arterial tree is adequate. No sign of pulmonary embolism. Heart size is normal. Thoracic aorta and pulmonary artery are normal in caliber. Aortic arch and coronary artery calcifications. Lungs and pleura: Multifocal ground-glass consolidation greatest in the lingula and bilateral bases.? No pleural effusions, pleural thickening, or pneumothorax. Lymph nodes/mediastinum: No mediastinal, hilar, or axillary adenopathy. Chest wall: No masses. Left chest wall pacemaking device/AICD. Upper abdomen: No acute or significant findings. Bones: Unremarkable for age. IMPRESSION: No pulmonary embolism, as questioned. Multifocal pneumonia. Assessment and Plan Assessment and plan (1) Multifocal pneumonia: Problem comment: This likely explains the illness that she had in the last several days. She has been treated with ceftriaxone and cephalexin. Will switched to levofloxacin. Status: Acute (2) Heart failure with reduced ejection fraction: Problem comment: Longstanding history of heart failure with reduced ejection fraction thought secondary to chemotherapy for breast cancer. No previous history of coronary artery disease. No previous coronary angiogram. Status: Acute (3) NSTEMI (non-ST elevated myocardial infarction): Problem comment: During her recent hospital admission: Initial troponin 0.11 increased to 0.44 then decreased to 0.23. No chest pain. Dyspnea has resolved. Electrocardiogram is nondiagnostic and unchanged. No definite acute ST-T changes. Elevation of troponins was thought to be due to type 2 NSTEMI or demand ischemia. I spoke with [facility] who will arrange outpatient follow-up. During her hospital stay she remained entirely asymptomatic without unusual dyspnea, palpitations, chest pain or exercise intolerance. She is on carvedilol and enalapril. She is also on amiodarone, warfarin, and furosemide. INR on admission was subtherapeutic. She received therapeutic enoxaparin until her INR was back to normal. Status: Acute (4) Urinary tract infection: Problem comment: On her last admission the only possible focus of infection for her fever and constitutional symptoms of illness was a urinary tract infection. She was not having specific urinary symptoms but had marked elevation of inflammatory markers and constitutional symptoms. These resolved relatively quickly during her hospital stay. Her urine culture grew out pansensitive E coli. She was treated with ceftriaxone during her hospital stay and discharged on cephalexin. Outpatient follow-up to assure that her constitutional symptoms of illness, inflammatory markers and urinary infection resolve. Status: Acute (5) Anticoagulation goal of INR 2 to 3: Problem comment: INR was 1.7 on admission and increased to 2 on discharge. Because she is on antibiotic will need close follow-up of INR and adjusting warfarin as needed. Did look into apixaban as an alternative. Cost was $475/month so patient elected to continue warfarin Levofloxacin will require changes in warfarin dosing. Close monitoring. Status: Acute Plan Admit to the hospital for management of her systemic illness, heart disease and pneumonia. Total time spent is 60 minutes, 40 minutes in coordination of care discussing with patient and granddaughter and other providers ongoing evaluation management of pneumonia and heart disease
[2022-05-09] MEDS: levoFLOXacin 750 MG TABLET PO (15:19)
[2022-05-09 15:23] LABS: C Reactive Protein* 3.4 mg/dL (0.5-1.0)
[2022-05-09] MEDS: WARFARIN 2.5 MG TABLET PO (17:31)
--- NOTE | 2022-05-09 18:48 | PC.NURSE ---
End of shift. pt has been very pleasant. no pain tamp was 100.6 and later 99.6. she said she feels better and not like she has a temp. temperature was turned down. she is eating, drinking and voiding. Tele shows NSR. SL is patent. She is above 90% on RA.
[2022-05-09] MEDS: ENALAPRIL MALEATE 10 MG TABLET 20 MG PO (21:09)
[2022-05-09] MEDS: SODIUM CHLORIDE 0.9 % (FLUSH) 10 ML SYRINGE 5 ML IVF (21:09)
[2022-05-09] MEDS: carvediloL 25 MG TABLET PO (21:09)
[2022-05-10] VITALS (10 sets, daily range): BP systolic 98–139; BP diastolic 55–75; PULSE 67–92; RESP 12–18; TEMP 36.5–37.3; O2SAT 90–94
--- NOTE | 2022-05-10 05:19 | PC.NURSE ---
[id number] Pt pleasant and cooperative,slept well during night. Denies pain, SOB, chest pain, lightheaded/dizziness, weakness, N/V, or difficulty breathing. Maintains sats >90% on RA. Ambulating independently in room.
[2022-05-10 06:46] LABS: Eosinophils Percent Auto 0.9 % (0.0-7.0); Hematocrit 38.6 % (33.0-51.0); Hemoglobin* 12.8 gm/dL (12.0-16.0); Immature Granulocytes Pct Auto 0.6 %; Lymphocytes Percent Auto 13.4 % (20-44); Mean Corpuscular HGB Conc 33 gm/dL (32-36); Mean Corpuscular Hemoglobin 30 pg (26-34); Mean Corpuscular Volume 92 fL (80-100); Neutrophils Percent Auto 75.1 % (42.0-72.0); Platelet Count* 245 K/uL (140-440); RDW Coefficient of Variation % 12.9 % (11.5-15.5); Red Blood Count 4.22 m/uL (4.00-5.20)
[2022-05-10 07:17] LABS: Slide Review Reflex No
[2022-05-10 07:18] LABS: Chloride* 97 mmol/L (96-114); Potassium* 3.1 mmol/L (3.6-5.1); Sodium* 134 mmol/L (135-149)
[2022-05-10 07:20] LABS: Creatinine* 0.8 mg/dL (0.5-1.5); Est. Creatinine Clearance* 38.75; Estimated Glomerular Filt Rate 74 ml/min
[2022-05-10 07:21] LABS: Blood Urea Nitrogen* 13 mg/dL (7-30); Calcium* 8.7 mg/dL (8.4-10.6); Carbon Dioxide* 31 mmol/L (20-32); Glucose* 101 mg/dL (60-115)
[2022-05-10 07:24] LABS: C Reactive Protein* 4.7 mg/dL (0.5-1.0)
[2022-05-10 07:26] LABS: INR 1.74 (0.91-1.10); Prothrombin Time 21.2 Seconds
[2022-05-10] MEDS: FUROSEMIDE 20 MG TABLET PO (09:02)
[2022-05-10] MEDS: carvediloL 25 MG TABLET PO ×2 (09:02→21:08)
[2022-05-10] MEDS: AMIODARONE 200 MG TABLET 100 MG PO (09:02)
[2022-05-10] MEDS: SODIUM CHLORIDE 0.9 % (FLUSH) 10 ML SYRINGE 5 ML IVF ×2 (09:03→21:09)
[2022-05-10] MEDS: ENALAPRIL MALEATE 10 MG TABLET 20 MG PO ×2 (10:15→21:09)
--- NOTE | 2022-05-10 10:57 | PM.IMPN1 ---
Progress Note: A&P Assessment and plan (1) Multifocal pneumonia: Problem details: This likely explains the illness that she had in the last several days. She has been treated with ceftriaxone and cephalexin. Will switched to levofloxacin. Status: Acute (2) Heart failure with reduced ejection fraction: Problem details: Longstanding history of heart failure with reduced ejection fraction thought secondary to chemotherapy for breast cancer. No previous history of coronary artery disease. No previous coronary angiogram. Status: Acute (3) NSTEMI (non-ST elevated myocardial infarction): Problem details: During her recent hospital admission: Initial troponin 0.11 increased to 0.44 then decreased to 0.23. No chest pain. Dyspnea has resolved. Electrocardiogram is nondiagnostic and unchanged. No definite acute ST-T changes. Elevation of troponins was thought to be due to type 2 NSTEMI or demand ischemia. I spoke with [facility] who will arrange outpatient follow-up. During her hospital stay she remained entirely asymptomatic without unusual dyspnea, palpitations, chest pain or exercise intolerance. She is on carvedilol and enalapril. She is also on amiodarone, warfarin, and furosemide. INR on admission was subtherapeutic. She received therapeutic enoxaparin until her INR was back to normal. Status: Acute (4) Urinary tract infection: Problem details: On her last admission the only possible focus of infection for her fever and constitutional symptoms of illness was a urinary tract infection. She was not having specific urinary symptoms but had marked elevation of inflammatory markers and constitutional symptoms. These resolved relatively quickly during her hospital stay. Her urine culture grew out pansensitive E coli. She was treated with ceftriaxone during her hospital stay and discharged on cephalexin. Outpatient follow-up to assure that her constitutional symptoms of illness, inflammatory markers and urinary infection resolve. Status: Acute (5) Anticoagulation goal of INR 2 to 3: Problem details: INR was 1.7 on admission and increased to 2 on discharge. Because she is on antibiotic will need close follow-up of INR and adjusting warfarin as needed. Did look into apixaban as an alternative. Cost was $475/month so patient elected to continue warfarin Levofloxacin will require changes in warfarin dosing. Close monitoring. Status: Acute Plan 81-year-old female with multifocal pneumonia, progressively worse while on antibiotics. Continue for monitoring in the hospital. Discharge to home when clearly clinically improving. No further cardiac evaluation is indicated at this time unless she develops new symptoms. Outpatient follow-up with cardiology next month. Time Spent With Patient Total time spent: Total time spent today is 35 minutes, 25 minutes in coordination of care and discussing with patient other providers ongoing evaluation management of pneumonia and heart disease Subjective Date Seen: 05/10/22 Interval history: 81-year-old female seen in followup of hospital readmission for multifocal pneumonia with fever and dyspnea. Hospitalized 4 days ago, Sunday, through 2 days ago, Sunday. During that hospital stay she was asymptomatic but had elevated inflammatory markers, elevated troponins and diagnosed with a urinary tract infection with pansensitive E coli. Treated in the hospitalist ceftriaxone and then discharged on cephalexin. The evening of discharge became worse with cough, dyspnea and fever and readmitted with new diagnosis of pneumonia. COVID, influenza, RSV testing negative. Patient reports feeling better today. She has not had any recurrent fever. She reports her dyspnea is better and she is not requiring oxygen. She continues to have a cough. Her appetite is not back to normal. Exam Narrative: Exam Narrative: She is alert and appears in no distress. She is oriented to her circumstances. Eyes normal. Oropharynx normal except for he dentulous. Neck is supple without mass or adenopathy. Respirations with bibasilar crackles. No wheezing. Cardiovascular: S1, S2, regular rate and rhythm. No murmur gallop or rub. Abdomen: Bowel sounds active. Abdomen is soft without tenderness or mass. Extremities without edema. Good perfusion and pulses in all 4 extremities. Const: Vital Signs, click to edit/add: Vital Signs - 24 hr 05/09/22 11:50 05/09/22 12:00 05/09/22 12:02 Temperature Pulse Rate 86 85 84 Pulse Rate [Left B rachial] Respiratory Rate Blood Pressure 129/65 Blood Pressure [Le ft Arm] Pulse Oximetry 91 90 90 Oxygen Delivery Me thod 05/09/22 12:03 05/09/22 12:30 05/09/22 12:32 Temperature Pulse Rate 84 86 85 Pulse Rate [Left B rachial] Respiratory Rate Blood Pressure 139/67 Blood Pressure [Le ft Arm] Pulse Oximetry 91 91 90 Oxygen Delivery Me thod 05/09/22 13:00 05/09/22 13:02 05/09/22 13:30 Temperature Pulse Rate 86 85 91 Pulse Rate [Left B rachial] Respiratory Rate Blood Pressure 132/70 Blood Pressure [Le ft Arm] Pulse Oximetry 91 92 92 Oxygen Delivery Me thod 05/09/22 13:32 05/09/22 14:00 05/09/22 14:02 Temperature Pulse Rate 92 87 86 Pulse Rate [Left B rachial] Respiratory Rate Blood Pressure 140/76 H 134/76 Blood Pressure [Le ft Arm] Pulse Oximetry 92 92 92 Oxygen Delivery Me thod 05/09/22 14:38 05/09/22 15:00 05/09/22 15:02 Temperature Pulse Rate 98 93 94 Pulse Rate [Left B rachial] Respiratory Rate Blood Pressure 148/90 H Blood Pressure [Le ft Arm] Pulse Oximetry 89 91 93 Oxygen Delivery Me thod 05/09/22 15:30 05/09/22 15:32 05/09/22 16:02 Temperature 100.6 F H Pulse Rate 87 87 Pulse Rate [Left B rachial] Respiratory Rate 16 Blood Pressure 138/72 Blood Pressure [Le ft Arm] 155/80 H Pulse Oximetry 92 92 93 Oxygen Delivery Me od Room Air 05/09/22 16:14 05/09/22 15:33 05/09/22 17:05 Temperature Pulse Rate 86 80 Pulse Rate [Left B rachial] Respiratory Rate 16 Blood Pressure Blood Pressure [Le ft Arm] Pulse Oximetry 93 92 Oxygen Delivery Me od Room Air 05/09/22 19:00 05/09/22 23:00 05/09/22 23:00 Temperature 100.0 F H Pulse Rate Pulse Rate [Left B rachial] Respiratory Rate 16 16 Blood Pressure Blood Pressure [Le ft Arm] 125/77 Pulse Oximetry 94 91 Oxygen Delivery Me od Room Air Room Air 05/09/22 23:00 05/09/22 23:00 05/10/22 02:53 Temperature 99.8 F H 99.1 F Pulse Rate 73 Pulse Rate [Left B rachial] Respiratory Rate 16 16 Blood Pressure Blood Pressure [Le ft Arm] 118/68 127/69 Pulse Oximetry 91 93 Oxygen Delivery Me od Room Air Room Air 05/10/22 08:23 05/10/22 08:15 05/10/22 07:30 Temperature 98.8 F Pulse Rate 78 Pulse Rate [Left B rachial] 77 Respiratory Rate 16 Blood Pressure Blood Pressure [Le ft Arm] 139/75 Pulse Oximetry 92 92 Oxygen Delivery Me thod Room Air Room Air Documenting provider has reviewed patient's vital signs: yes Labs Labs: Laboratory Results - last 24 hr 05/09/22 05/09/22 05/09/22 10:47 11:07 11:30 WBC 4.37 L RBC 4.29 Hgb 13.1 Hct 40.0 MCV 93 MCH 31 MCHC 33 RDW Coeff of Dipti 13.0 Plt Count 242 Neut % (Auto) 80.9 H Lymph % (Auto) 10.[address] % (Auto) 7.3 Eos % (Auto) 1.1 Baso % (Auto) 0.2 Neut # (Auto) 3.50 Lymph # (Auto) 0.[address] # (Auto) 0.30 Eos # (Auto) 0.00 Baso # (Auto) 0.00 INR Sodium Potassium Chloride Carbon Dioxide BUN Creatinine Estimated Creat Clear Estimated GFR Glucose Lactate Calcium Total Bilirubin AST ALT Alkaline Phosphatase Troponin I C-Reactive Protein NT-Pro-B Natriuret Pep Total Protein Albumin Procalcitonin Urine Color Yellow Urine Appearance Clear Urine pH 5.5 Ur Specific [place] 1.010 Urine Protein Negative Urine Glucose (UA) Negative Urine Ketones Negative Urine Blood Trace-intact A Urine Nitrite Negative Urine Bilirubin Negative Urine Urobilinogen 0.2 Ur Leukocyte Esterase Negative Urine RBC 0-2 Urine WBC 0-2 Urine WBC Clumps None Ur Squamous Epith Cells Few Urine Bacteria None SARS-CoV-2 (PCR) Negative SARS-CoV-2 Influenza Type A (PCR) Negative PCR FLU A Influenza Type B (PCR) Negative PCR FLU B RSV (PCR) Negative PCR RSV 05/09/22 05/09/22 05/09/22 11:30 11:30 11:30 WBC RBC Hgb Hct MCV MCH MCHC RDW Coeff of Dipti Plt Count Neut % (Auto) Lymph % (Auto) [facility] % (Auto) Eos % (Auto) Baso % (Auto) Neut # (Auto) Lymph # (Auto) [facility] # (Auto) Eos # (Auto) Baso # (Auto) INR 1.81 H Sodium 137 Potassium 3.8 Chloride 99 Carbon Dioxide 32 BUN 10 Creatinine 0.8 Estimated Creat Clear 38.75 Estimated GFR 74 Glucose 127 H Lactate Calcium 9.0 Total Bilirubin 0.7 AST 29 ALT 18 Alkaline Phosphatase 43 Troponin I 0.13 H* C-Reactive Protein NT-Pro-B Natriuret Pep 6630 Total Protein 7.3 Albumin 4.0 Procalcitonin Urine Color Urine Appearance Urine pH Ur Specific [place] Urine Protein Urine Glucose (UA) Urine Ketones Urine Blood Urine Nitrite Urine Bilirubin Urine Urobilinogen Ur Leukocyte Esterase Urine RBC Urine WBC Urine WBC Clumps Ur Squamous Epith Cells Urine Bacteria SARS-CoV-2 (PCR) Influenza Type A (PCR) Influenza Type B (PCR) RSV (PCR) 05/09/22 05/09/22 05/09/22 11:30 11:30 11:30 WBC RBC Hgb Hct MCV MCH MCHC RDW Coeff of Dipti Plt Count Neut % (Auto) Lymph % (Auto) [facility] % (Auto) Eos % (Auto) Baso % (Auto) Neut # (Auto) Lymph # (Auto) [facility] # (Auto) Eos # (Auto) Baso # (Auto) INR Sodium Potassium Chloride Carbon Dioxide BUN Creatinine Estimated Creat Clear Estimated GFR Glucose Lactate 1.0 Calcium Total Bilirubin AST ALT Alkaline Phosphatase Troponin I C-Reactive Protein 3.4 H NT-Pro-B Natriuret Pep Total Protein Albumin Procalcitonin 7.83 H Urine Color Urine Appearance Urine pH Ur Specific [place] Urine Protein Urine Glucose (UA) Urine Ketones Urine Blood Urine Nitrite Urine Bilirubin Urine Urobilinogen Ur Leukocyte Esterase Urine RBC Urine WBC Urine WBC Clumps Ur Squamous Epith Cells Urine Bacteria SARS-CoV-2 (PCR) Influenza Type A (PCR) Influenza Type B (PCR) RSV (PCR) 05/09/22 05/10/22 05/10/22 13:42 06:18 06:18 WBC 3.50 L RBC 4.22 Hgb 12.8 Hct 38.6 MCV 92 MCH 30 MCHC 33 RDW Coeff of Dipti 12.9 Plt Count 245 Neut % (Auto) 75.1 H Lymph % (Auto) 13.[address] % (Auto) 10.0 Eos % (Auto) 0.9 Baso % (Auto) 0.0 Neut # (Auto) 2.60 Lymph # (Auto) 0.[address] # (Auto) 0.40 Eos # (Auto) 0.00 Baso # (Auto) 0.00 INR 1.74 H Sodium Potassium Chloride Carbon Dioxide BUN Creatinine Estimated Creat Clear Estimated GFR Glucose Lactate Calcium Total Bilirubin AST ALT Alkaline Phosphatase Troponin I 0.13 H* C-Reactive Protein NT-Pro-B Natriuret Pep Total Protein Albumin Procalcitonin Urine Color Urine Appearance Urine pH Ur Specific [place] Urine Protein Urine Glucose (UA) Urine Ketones Urine Blood Urine Nitrite Urine Bilirubin Urine Urobilinogen Ur Leukocyte Esterase Urine RBC Urine WBC Urine WBC Clumps Ur Squamous Epith Cells Urine Bacteria SARS-CoV-2 (PCR) Influenza Type A (PCR) Influenza Type B (PCR) RSV (PCR) 05/10/22 06:18 WBC RBC Hgb Hct MCV MCH MCHC RDW Coeff of Dipti Plt Count Neut % (Auto) Lymph % (Auto) [facility] % (Auto) Eos % (Auto) Baso % (Auto) Neut # (Auto) Lymph # (Auto) [facility] # (Auto) Eos # (Auto) Baso # (Auto) INR Sodium 134 L Potassium 3.1 L Chloride 97 Carbon Dioxide 31 BUN 13 Creatinine 0.8 Estimated Creat Clear 38.75 Estimated GFR 74 Glucose 101 Lactate Calcium 8.7 Total Bilirubin AST ALT Alkaline Phosphatase Troponin I C-Reactive Protein 4.7 H NT-Pro-B Natriuret Pep Total Protein Albumin Procalcitonin Urine Color Urine Appearance Urine pH Ur Specific [place] Urine Protein Urine Glucose (UA) Urine Ketones Urine Blood Urine Nitrite Urine Bilirubin Urine Urobilinogen Ur Leukocyte Esterase Urine RBC Urine WBC Urine WBC Clumps Ur Squamous Epith Cells Urine Bacteria SARS-CoV-2 (PCR) Influenza Type A (PCR) Influenza Type B (PCR) RSV (PCR)
[2022-05-10] MEDS: POTASSIUM BICARB 25 MEQ EFFERVESCENT TAB 50 MEQ PO (11:17)
--- NOTE | 2022-05-10 12:13 | PC.SOCIAL ---
Met with pt. and pt.'s son Nir at [phone]. Pt. wanted to fill out an [employer] Care Directive. Pt. choose to fill out a POLST and an [employer] Short-form health care directive. Forms have been completed and will be scanned to pt.'s chart.
--- NOTE | 2022-05-10 14:46 | PC.NURSE ---
Pt afebrile this shift, productive cough of thin yellow sputum. Denies any shortness of breath, O2 93% on RA. Education on incentive spirometer and patient able to demonstrate use. Tolerating regular diet, continues with decreased appetite. Reports of loose stools x 3 this shift, client will request yogurt at meal times and will report any further loose stools. One time dose of potassium 50mEq for potassium lab value of 3.1 this AM.
[2022-05-10] MEDS: WARFARIN 3 MG TABLET PO (17:02)
--- NOTE | 2022-05-10 19:50 | PC.NURSE ---
shift note: pt up indept in room. LS with insp/exp wheezing to bilat bases posteriorly. pt denies c.p or pressure or sob. Pt 94% RA. Pt using IS to 1000. vss stable. pt afeb.
[2022-05-11 00:17] VITALS: PULSE 64
[2022-05-11 03:00] VITALS: BP 123/71; PULSE 71; RESP 12; TEMP 36.8; O2SAT 93
--- NOTE | 2022-05-11 06:24 | PC.NURSE ---
Patient is alert and oriented x 4, up ad kimi, on RA, vss, regular diet. Patient had an uneventful night, slept well and denied pain
[2022-05-11 07:37] LABS: Basophils Percent Auto 0.3 % (0.0-3.0); Eosinophils Percent Auto 4.9 % (0.0-7.0); Hematocrit 39.3 % (33.0-51.0); Hemoglobin* 13.1 gm/dL (12.0-16.0); Immature Granulocytes Pct Auto 0.3 %; Lymphocytes Percent Auto 21.6 % (20-44); Mean Corpuscular HGB Conc 33 gm/dL (32-36); Mean Corpuscular Hemoglobin 31 pg (26-34); Mean Corpuscular Volume 92 fL (80-100); Monocytes Percent Auto 10.4 % (0.0-11.0); Neutrophils Percent Auto 62.5 % (42.0-72.0); Platelet Count* 232 K/uL (140-440); Red Blood Count 4.27 m/uL (4.00-5.20); White Blood Count* 3.84 K/uL (4.50-11.00)
[2022-05-11 07:44] LABS: Chloride* 99 mmol/L (96-114); Potassium* 3.7 mmol/L (3.6-5.1); Sodium* 136 mmol/L (135-149)
[2022-05-11 07:45] LABS: Slide Review Reflex No
[2022-05-11 07:47] LABS: Blood Urea Nitrogen* 16 mg/dL (7-30); Carbon Dioxide* 31 mmol/L (20-32); Creatinine* 0.8 mg/dL (0.5-1.5); Est. Creatinine Clearance* 38.75; Estimated Glomerular Filt Rate 74 ml/min; Glucose* 112 mg/dL (60-115)
[2022-05-11 07:48] VITALS: BP 141/73; PULSE 67; RESP 18; TEMP 36.9; O2SAT 95
[2022-05-11 07:48] LABS: Calcium* 9.1 mg/dL (8.4-10.6)
[2022-05-11 07:50] LABS: C Reactive Protein* 3.8 mg/dL (0.5-1.0)
[2022-05-11 07:53] LABS: INR 1.75 (0.91-1.10); Prothrombin Time 21.4 Seconds
[2022-05-11 08:00] VITALS: PULSE 64
[2022-05-11 08:03] LABS: Procalcitonin* 8.33 ng/mL (<0.50)
[2022-05-11 08:30] VITALS: O2SAT 94
[2022-05-11] MEDS: AMIODARONE 200 MG TABLET 100 MG PO (09:42)
[2022-05-11] MEDS: FUROSEMIDE 20 MG TABLET PO (09:42)
[2022-05-11] MEDS: carvediloL 25 MG TABLET PO (09:44)
[2022-05-11] MEDS: levoFLOXacin 750 MG TABLET PO (09:45)
[2022-05-11] MEDS: ENALAPRIL MALEATE 10 MG TABLET 20 MG PO (09:48)
[2022-05-11] MEDS: SODIUM CHLORIDE 0.9 % (FLUSH) 10 ML SYRINGE 5 ML IVF (09:49)
[2022-05-11 11:31] VITALS: BP 138/72; PULSE 64; RESP 18; TEMP 36.9
[2022-05-11] MEDS: ACETAMINOPHEN 325 MG TABLET 650 MG PO (12:13)
--- NOTE | 2022-05-11 13:36 | P.DS_ITS ---
DS: Providers Provider Date Seen: 05/11/22 Date of admission: 05/09/22 15:51 Primary care physician: Sanjuanita Goldman PA-C Admitting Clinician: Dawna Garcia MD Attending Physician on discharge: Dawna Garcia MD Date of Discharge: 05/11/22 DS: Diagnosis Discharge Diagnosis (1) Multifocal pneumonia: Status: Acute Problem details: Patient readmitted with worsening multifocal pneumonia. She had been treated with ceftriaxone for 3 days and discharged to home with worsening symptoms. Readmitted and placed on Levaquin. Clinical improvement. Had no fever or hypoxia in the past day. (2) Heart failure with reduced ejection fraction: Status: Acute Problem details: Longstanding history of heart failure with reduced ejection fraction thought secondary to chemotherapy for breast cancer. No previous history of coronary artery disease. No previous coronary angiogram. No clinical evidence of heart failure exacerbation (3) NSTEMI (non-ST elevated myocardial infarction): Status: Acute Problem details: During her recent hospital admission: Initial troponin 0.11 increased to 0.44 then decreased to 0.23. Readmission troponin 0.13. No chest pain. Dyspnea has resolved. Electrocardiogram is nondiagnostic and unchanged. No definite acute ST-T changes. Elevation of troponins was thought to be due to type 2 NSTEMI or demand ischemia. I spoke with [facility] who will arrange outpatient follow-up. During her hospital stay she remained entirely asymptomatic without unusual dyspnea, palpitations, chest pain or exercise intolerance. She is on carvedilol and enalapril. She is also on amiodarone, warfarin, and furosemide. INR on admission was subtherapeutic. (4) Urinary tract infection: Status: Acute Problem details: On her last admission the only possible focus of infection for her fever and constitutional symptoms of illness was a urinary tract infection. She was not having specific urinary symptoms but had marked elevation of inflammatory markers and constitutional symptoms. These resolved relatively quickly during her hospital stay. Her urine culture grew out pansensitive E coli. She was treated with ceftriaxone during her hospital stay and discharged on cephalexin. The night of discharge she was readmitted and found to have multifocal pneumonia. This was thought to be the cause of her fever rather than a urinary tract infection. (5) Anticoagulation goal of INR 2 to 3: Status: Acute Problem details: INR was 1.7 on admission and increased to 2 on discharge. Because she is on antibiotic will need close follow-up of INR and adjusting warfarin as needed. Did look into apixaban as an alternative. Cost was $475/month so patient elected to continue warfarin Levofloxacin will require changes in warfarin dosing. Close monitoring. DS: Summary Hospital Course Hospital Course: 81-year-old female readmitted to the hospital after being admitted to the hospital 5 days ago with fever and fatigue malaise and dyspnea. Time of admission she did not have a obvious pneumonia. She was treated with ceftriaxone for the possibility of pneumonia or urinary tract infection. Her urine culture did show greater than 100,000 colonies of pansensitive E coli. The night of discharge from the hospital the 1st time she had more fever with worsening dyspnea fatigue and malaise. She returned to the hospital and was then diagnosed by CT scan with multifocal pneumonia. Treated with Levaquin for 3 days with improvement her symptoms. She still reports some decreased appetite, fatigue. Her cough is better. Her fevers resolved. She has never required oxygen. She will need outpatient follow-up early next week to recheck her INR. Ongoing adjustments to the INR may be necessary as she has been subtherapeutic here but on Levaquin which may affect her INR. I increased her warfarin to 3 mg every day pending follow-up appointment. Levaquin can also cause prolonged QT with amiodarone. If she continues on Levaquin and electrocardiogram should be obtained. If she is not well in follow up next week consider repeating her procalcitonin which has been markedly abnormal. She is warned that C diff infection can complicate her Levaquin therapy as well. Up if she gets diarrhea Status at Discharge Cognitive/behavioral status at discharge: Baseline Functional status at discharge: independent ambulation Overall status at discharge: patient is progressing back to baseline Time Spent with Patient Time attestation: Total time spent providing and/or coordinating discharge services: Time spent: Greater than 30 minutes Exam Narrative: Exam Narrative: He is alert and appears in no distress. Respirations are clear to auscultation except for a rare basilar crackle. No wheezing. Cardiovascular: S1, S2, regular rate and rhythm. No murmur gallop or rub. Abdomen: Bowel sounds active. Abdomen is soft without tenderness or mass. Extremities without edema. She is well perfused in all extremities. Const: Vital Signs, click to edit/add: Vital Signs - 24 hr 05/10/22 17:04 05/10/22 15:00 05/10/22 15:00 Temperature 98.9 F Pulse Rate 71 Pulse Rate [Left B rachial] 71 80 Respiratory Rate 18 18 Blood Pressure Blood Pressure [Le ft Arm] 137/73 Pulse Oximetry 93 Oxygen Delivery Me thod Room Air 05/10/22 15:00 05/10/22 19:00 05/10/22 22:20 Temperature 97.7 F Pulse Rate 92 Pulse Rate [Left B rachial] 92 Respiratory Rate 18 12 Blood Pressure Blood Pressure [Le ft Arm] 134/65 Pulse Oximetry 93 94 Oxygen Delivery Me thod Room Air Room Air 05/10/22 22:20 05/10/22 23:31 05/11/22 00:17 Temperature 98.5 F Pulse Rate 64 Pulse Rate [Left B rachial] 67 Respiratory Rate 12 Blood Pressure Blood Pressure [Le ft Arm] 105/55 L Pulse Oximetry 94 90 Oxygen Delivery Me thod Room Air Room Air 05/11/22 03:00 05/11/22 07:48 05/11/22 08:30 Temperature 98.3 F 98.5 F Pulse Rate Pulse Rate [Left B rachial] 71 67 Respiratory Rate 12 18 Blood Pressure Blood Pressure [Le ft Arm] 123/71 141/73 H Pulse Oximetry 93 95 94 Oxygen Delivery Me thod Room Air Room Air Room Air 05/11/22 08:00 05/11/22 11:31 Temperature 98.5 F Pulse Rate 64 64 Pulse Rate [Left B rachial] Respiratory Rate 18 Blood Pressure 138/72 Blood Pressure [Le ft Arm] Pulse Oximetry Oxygen Delivery Me thod Documenting provider has reviewed patient's vital signs: yes DS: Data Data Completed and Pending Labs on day of discharge: Labs from last 24 hours 05/11/22 05/09/22 06:32 17:07 WBC 3.84 L RBC 4.27 Hgb 13.1 Hct 39.3 MCV 92 MCH 31 MCHC 33 RDW Coeff of Dipti 13.0 Plt Count 232 Neut % (Auto) 62.5 Lymph % (Auto) 21.6 [place] % (Auto) 10.4 Eos % (Auto) 4.9 Baso % (Auto) 0.3 Neut # (Auto) 2.40 Lymph # (Auto) 0.80 L [place] # (Auto) 0.40 Eos # (Auto) 0.20 Baso # (Auto) 0.00 INR 1.75 H Sodium 136 Potassium 3.7 Chloride 99 Carbon Dioxide 31 BUN 16 Creatinine 0.8 Estimated Creat Clear 38.75 Estimated GFR 74 Glucose 112 Calcium 9.1 Magnesium 2.0 C-Reactive Protein 3.8 H Procalcitonin 8.33 H Ur L.pneumophila Ag Pending Preliminary micro results at discharge 05/09/22 11:47 Blood Culture - Preliminary Blood NO GROWTH AFTER 48 HOURS 05/09/22 11:30 Blood Culture - Preliminary Blood NO GROWTH AFTER 48 HOURS Discharge Plan Discharge Disposition: Home, Self-Care Date of Admission: 05/09/22 15:51 Attending Provider on Discharge: Corwin Hastings Primary Care Provider: Sanjuanita Goldman Condition: Improved Anticipated Discharge Date/Time: 05/11/22 10:41 Discharge Medications: New levofloxacin 250 mg tablet 250 mg PO DAILY Qty: 5 0RF Continued furosemide 20 mg tablet 20 mg PO QDAY Qty: 90 3RF melatonin 5 mg capsule 5 mg PO HS PRN enalapril maleate 20 mg tablet 20 mg PO BID diclofenac sodium 1 % gel 4 g topical QID Qty: 100 0RF Rx Instructions: apply to single knee, ankle, foot; for foot includes sole/toes/top of foot amiodarone 200 mg tablet 100 mg PO DAILY Qty: 45 3RF carvedilol 25 mg tablet 25 mg PO BID Qty: 60 0RF Changed warfarin 1 mg tablet 3 mg PO .UD Qty: 90 0RF Protocol: Dose Management Condition: Sunday Dose/Route: 2.5 mg Instruction: 2.5 x 1 mg tablets Condition: Sunday Dose/Route: 2.5 mg Instruction: 2.5 x 1 mg tablets Condition: Sunday Dose/Route: 2.5 mg Instruction: 2.5 x 1 mg tablets Condition: Sunday Dose/Route: 3 mg Instruction: 3 x 1 mg tablets Condition: Dose/Route: 2.5 mg Instruction: 2.5 x 1 mg tablets Condition: Sunday Dose/Route: 2.5 mg Instruction: 2.5 x 1 mg tablets Condition: Sunday Dose/Route: 2.5 mg Instruction: 2.5 x 1 mg tablets Protocol Text: Adjustment Start Date: Sunday02/24/22 INR Value: 4.71 INR Date: 02/23/22 Recheck Date: 03/03/22 Rx Instructions: 3 mg daily Discharge Orders: Discharge Order (Routine); Ordered 05/11/22 Ordered By: Corwin Hastings Patient Education: Levofloxacin (By mouth), Bacterial Pneumonia (DC) Additional Instructions: Return to the emergency room if you have more trouble breathing, recurrent fever, worsening diarrhea. Activity Level: Activity as Tolerated Discharge Diet: Regular Follow Up Appointments: Sanjuanita Goldman PA-C [Primary Care Provider] - 05/18/22 10:00 am ([facility]- INR and basic metabolic panel check.) Serg Goldman MD [Referring] - Forms: [employer] Info Instructions
--- NOTE | 2022-05-11 15:37 | PC.NURSE ---
shift note: pt up indept in room. LS with bibasilar exp wheezing. pt has productive cough. pt denies sob or chest tightness with activity. pt tolerating regular diet. pt medicated with tylenol for rt shoulder ache. Reviewed dc instructions and copies sent with pt at dc. Belongings sent with pt at dc after checking off list. IV dc'd intact to Lt wrist intact.
== END 2022-05-11 14:02 | disposition home or self-care (01) | DRG 193 ==
LOC: ED 15:05 → MEDSURG 16:03
PROVIDERS: Family Medicine; Admitting Provider Family Medicine; Emergency Provider Student in an Organized Health Care Education/Training Program; PCP Physician Assistant Medical; Visit Provider Family Medicine
DX: J18.9 Pneumonia, unspecified organism (principal); I21.4 Non-ST elevation (NSTEMI) myocardial infarction; I50.20 Unspecified systolic (congestive) heart failure; N39.0 Urinary tract infection, site not specified; Z79.01 Long term (current) use of anticoagulants; B96.20 Unspecified Escherichia coli [E. coli] as the cause of diseases classified elsewhere
CPT/HCPCS: 36415; 71045; 71260; 80048; 80053; 81001; 81003; 81015; 82803; 83605; 83735; 83880; 84145; 84484; 85025; 85379; 85610; 85651; 86140; 87040; 87086; 87186; 87449; 87502; 87634; 87635; 93005; 93306; 94761; 99283; 99284; 99285; A9270; G0378; J0696; J1650; J7050; Q9967

== ENCOUNTER 2022-05-18 10:03 | Outpatient (CLI) | payer MEDICARE, SELFPAY | END 2022-05-18 10:04 | disposition home or self-care (01) | PROVIDERS: PCP Physician Assistant Medical; Visit Provider Physician Assistant Medical | DX: I50.20 Unspecified systolic (congestive) heart failure (principal); J18.9 Pneumonia, unspecified organism | CPT/HCPCS: 80048 ==

== ENCOUNTER 2022-05-24 09:05 | Outpatient (CLI) | payer MEDICARE, SELFPAY | END 2022-05-24 09:06 | disposition home or self-care (01) | LOC: NFLDREF 14:34 | PROVIDERS: PCP Physician Assistant Medical; Referring Provider Physician Assistant Medical; Visit Provider Physician Assistant Medical | DX: I50.20 Unspecified systolic (congestive) heart failure (principal) | CPT/HCPCS: 85610 ==

== ENCOUNTER 2022-09-26 13:12 | Outpatient (CLI) | payer MEDICARE, SELFPAY | END 2022-09-26 13:13 | disposition home or self-care (01) | LOC: NFLDREF 09-27 15:22 | PROVIDERS: PCP Physician Assistant Medical; Referring Provider Physician Assistant Medical; Visit Provider Physician Assistant Medical | DX: E53.8 Deficiency of other specified B group vitamins (principal); R79.89 Other specified abnormal findings of blood chemistry; E55.9 Vitamin D deficiency, unspecified; Z51.81 Encounter for therapeutic drug level monitoring; Z79.01 Long term (current) use of anticoagulants | CPT/HCPCS: 82306; 82607 ==

== ENCOUNTER 2022-10-12 11:15 | Outpatient (RCR) | payer MEDICARE, SELFPAY ==
--- NOTE | 2022-03-24 22:52 | PT.OPE ---
PT [place] Outpatient Eval PT [facility] Outpatient Eval Start: 03/23/22 10:11 Freq: Status: Active Protocol: Document 03/23/22 10:11 BMS (Rec: 03/23/22 10:25 BMS [id number]) E-signed By Sophia Crockett PT Physical Therapy Outpatient Evaluation Insurance Information Recert Due Date 06/20/22 Insurance Name Medicare B Medical Diagnosis R thigh pain, Treating Diagnosis R thigh pain, ITB balance abnormal gait Referring MD Sanjuanita FUENTES Subjective Subjective very careful w standing up sometimes hurts real bad, have to wait a minute before can start walking. not activity specific, hurts upthrough here (R lateral LE ITB) still volunteering 5x3hrs at school, lots of walking. last few months have been sleeping in chair bc rolling on R hip and pain stairs pain if I try to do it normal.very careful and use railings. putting on shoes is problem daughter by suicide year ago Novermber so self care went away increased lymphedema R UE knee Pain Comments always hurts w walking (5-6/10 ) but pain goes away with sitting 0/10 using heat and ice, tylenol helps some. not using gait aid. 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 Precautions Treatment Precautions/Contraindications cataract surgery seeing much better per EMR past medical hx + for: Iliotibial band syndrome of right side (Acute) M76.31 Atrial fibrillation (Acute) I48.91 Ventricular tachycardia (Acute 12/02/12) I47.2 Presence of implantable cardioverter-defibrillator ( ICD) (Acute 06/04/12) Z95.810 Osteopenia (Acute 12/27/12) M85.80 Lymphedema of upper extremity (Acute) I89.0 Chronic kidney disease (Acute) N18.9 CHF (congestive heart failure) (Acute) I50.9 Cardiomyopathy (Acute 06/04/12 ) I42.9 Benign paroxysmal positional vertigo (Acute) H81.10 Anticoagulation goal of INR 2 to 3 (Acute) Z51.81, Z79.01 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 Medical History (Updated 01/25 @ 12:55 by JACQUELINE CandelariaC) Acute gallstone pancreatitis Cyst of pancreas History of herpes zoster (10/ 07/13) History of non-Hodgkin's lymphoma (06/04/12) Malignant neoplasm of breast ( 06/04/12) Migration of pancreatic stent Surgical History (Updated @ 13:42 by Reginald Villalpando) History of atrioventricular mayito ablation (06/04/12) History of breast biopsy () History of cholecystectomy History of endoscopic retrograde cholangiopancreatography Therapy Limitations/Systems Review Affect,Vision,Other Medical Problem Objective Range of Motion R hip AAROM supine flex 90, ER 20, IR neutral. supine hip flexed 40 degrees from neutral extension knee 0 ext with hip flex, with hip ext knee flex ~ 35 deg HS 60 deg. Strength MMT seated R/L hip flex and abduct R 4-/5. L 4/5 quad and HS R=4-/5, L=4/5 B ER 3+/5 IR 3+/5 DF , PF, inv, ev B = 4/5 Swelling increased edema R UE despite compression garments Palpation mod tender along ITB, mild in quad, mod+ adductors, mod in glute. decreased hip mobility with mobilizations. further asses knee to follow. firm end feel all passive hip ROM with pain endrange all planes Balance & Gait amb w R circumduction, LOB to R uses wall for balance assist , lack hip ext and knee ext in gait. wide base Posture head forward, fwd flex at hip, wide base, uses hand for proprioception Sensation/Reflexes DTR R quad slightly more brisk than L Functional Test Performed & Score Tinetti 13/28 high fall risk Assessment Assessment/Impression Patient is very pleasant 81 y. o. female known to this therapist through prior episodes of care, referred to rehab services for R thigh pain. She reports this began ~ last November with no specific injury, but notes R leg weakness, pain 5/10 and difficulty with walking. Unfortunately her daughter about a year ago and Ruthann admits to not taking care of herself during her grieving period. 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 She lives alone in a multi story home with bedroom on 2nd floor - has been sleeping in her recliner on main level for several months due to pain, weakness and fatigue. She presents today with loss of ROM in R hip, tightness through iliopsoas, quad, HS and calf and functional weakness in B LE. Balance is poor and gait is also impaired . She will benefit from skilled physical therapy to improve mobility, functional strength, balance and gait as well as stair navigation to be able to remain independent in own home performing all ADLs and IADLs safely. Primary Functional Limitations walk, standing, step up, balance, ROM and functional strength, in/out lower vehicle Plan of Care Rehabilitation Potential Good Rehabilitation Potential Comments may take longer due to deconditioning/debility and many comorbidities Physical Therapy Goals STG meet 2-3 weeks 1) Pt demo I HEP and self care/home mgmt techniques for improved pain management and performance of independent ADLs including transfers and grooming. 2) Pt report pain <= 2/10 with ambulation >30 min IADL i.e. grocery or necessity shopping. LTG meet 4-6 weeks 1) Pt demo gait pattern without antalgia, with equal stride lengths and demo appropriate hip, knee, and ankle motions. 2) Pt demo appropriate balance responses to decrease risk of falls with internal and external perturbations. 3) Pt demo ability to squat and lift without increased pain. Coordination/Communication With Referral Source Treatment Plan/Direct Interventions Gait Training,Manual Therapy, Neuromuscular Re-ed,Self-Care/ Home Management,Therapeutic Activities,Therapeutic Exercises,Ultrasound Frequency/Duration 1-2x/ week 6-12 weeks Patient Will Be Discharged From Therapy Completion of LTG(s),Skills Plateau,Independent w/HEP, Independently Progressing Evaluation Billing Untimed Code Treatment Minutes 35 Complexity Moderate Certification Information Initial Certification Date 03/23/22 Ending Certification Date 06/20/22 Provider Signature Shows Agreement With POC & Medical Necessity Physician Signature & Date Requested Please Sign/Date Here Physician Comment/Change : Physician NPI Number #
--- NOTE | 2022-07-20 12:15 | PT.OPDN ---
PT [facility] Outpatient Daily Note PT [facility] Outpatient Daily Note Start: 03/23/22 10:11 Freq: Status: Active Protocol: Document 07/20/22 12:01 BMS (Rec: 07/20/22 12:13 BMS [email or web address]) E-signed By Sophia Crockett, PT PT OP Daily Progress Note Visit Information Note Type Daily Note,Recert/Progress Note Visit Number [id number] Insurance Information Recert Due Date 07/21/22 Insurance Name Medicare B Medical Diagnosis R thigh pain, Treating Diagnosis R thigh pain, ITB balance abnormal gait Referring MD Sajnuanita FUENTES Subjective Subjective increased pain since the afternoon after last appt, feel it into my lateral ankle more, like a gnawing pain. and side of leg. and into groin Pain Comments 8-10 now 07/29 Precautions Treatment Precautions/Contraindications cataract surgery seeing much better per EMR past medical hx + for: Iliotibial band syndrome of right side (Acute) M76.31 Atrial fibrillation (Acute) I48.91 Ventricular tachycardia (Acute 12/02/12) I47.2 Presence of implantable cardioverter-defibrillator ( ICD) (Acute 06/04/12) Z95.810 Osteopenia (Acute 12/27/12) M85.80 Lymphedema of upper extremity (Acute) I89.0 Chronic kidney disease (Acute) N18.9 CHF (congestive heart failure) (Acute) I50.9 Cardiomyopathy (Acute 06/04/12 ) I42.9 Benign paroxysmal positional vertigo (Acute) H81.10 Anticoagulation goal of INR 2 to 3 (Acute) Z51.81, Z79.01 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 Medical History (Updated 01/25 @ 12:55 by JACQUELINE CandelariaC) Acute gallstone pancreatitis Cyst of pancreas History of herpes zoster (08/31) History of non-Hodgkin's lymphoma (06/04/12) Malignant neoplasm of breast ( 06/04/12) Migration of pancreatic stent Surgical History (Updated @ 13:42 by Reginald Villalpando) History of atrioventricular mayito ablation (06/04/12) History of breast biopsy () History of cholecystectomy History of endoscopic retrograde cholangiopancreatography Home Exercise Home Exercise Comments Access Code: [email or web address] URL: [email or web address] Date: 07/20/2022 Prepared by: Sophia Crockett Exercises - seated hip and knee extension with band - 1 x daily - 5 x weekly - 1-3 sets - 10-20 reps - 5-10 sec hold - Seated Hip Abduction with Resistance - 1 x daily - 5 x weekly - 1-3 sets - 10-20 reps - 5-10 sec hold - Seated Long Arc Quad - 1 x daily - 5 x weekly - 1-3 sets - 10-20 reps - 5-10 sec hold - Seated Ankle Plantarflexion with Resistance - 1 x daily - 5 x weekly - 1-3 sets - 10-20 reps - 5-10 sec hold Objective Other/Pertinent Objective worsened antalgic gait pattern with significant offload to L side and decreased hip flex and ext. -knee ext open chain no longer painful and able to allow full relaxation of quad after. - MMT grossly 4-/5 - + trendelenberg L Patient Instructed in Risks/Benefits Yes Therapeutic Exercise Therapeutic Exercise Minutes (minutes) 23 Therapeutic Exercise: To Restore instruct demo perform and Functional Status handout issued for: (in clinic perform 10-12 reps) Access Code: [email or web address] URL: [email or web address]/ Date: 07/20/2022 Prepared by: Sophia Crockett Exercises - seated hip and knee extension with band - 1 x daily - 5 x weekly - 1-3 sets - 10-20 reps - 5-10 sec hold - Seated Hip Abduction with Resistance - 1 x daily - 5 x weekly - 1-3 sets - 10-20 reps - 5-10 sec hold - Seated Long Arc Quad - 1 x daily - 5 x weekly - 1-3 sets - 10-20 reps - 5-10 sec hold - Seated Ankle Plantarflexion with Resistance - 1 x daily - 5 x weekly - 1-3 sets - 10-20 reps - 5-10 sec hold Manual Therapy Techniques Manual Therapy Minutes (minutes) 20 Manual Therapy Techniques STM MFR to entire LE, focus on proximal thigh and into groin . long axis leg pull in long sit due to hx of vertigo symptoms and patient decline laying further reclined at this time. some STM and MFR into lateral thigh and hip as well. Treatment Minutes Timed Code Treatment Minutes 43 Total Treatment Time 43 Billing Units Manual Therapy Units 1 Therapeutic Exercise Units 2 Assessment/Impression Assessment/Impression Patient report complete resolution of pain ('well there is still SOME there but much better than before' upon further questioning) after soft tissue and leg pull. does not tolerate supine so reimagining some of the mobilizations and exercises would traditionally use for these symptoms. Patient demo improved gait pattern after session and was able to perform all the ex without additional pain. However she was unable to tolerate standing lumbar ext or hip flexor stretch due to increase in distal symptoms as well as proximal. She remains appropriate for skilled physical therapy to imrpove mobility and pain for maintaining independent living and to be able to resume prior activity level Plan of Care Physical Therapy Goals STG meet 2-3 weeks 1) Pt demo I HEP and self care/home mgmt techniques for improved pain management and performance of independent ADLs including transfers and grooming. 2) Pt report pain <= 2/10 with ambulation >30 min IADL i.e. grocery or necessity shopping. LTG meet 4-6 weeks 1) Pt demo gait pattern without antalgia, with equal stride lengths and demo appropriate hip, knee, and ankle motions. 2) Pt demo appropriate balance responses to decrease risk of falls with internal and external perturbations. 3) Pt demo ability to squat and lift without increased pain. Daily Plan of Care Continue per POC Daily Plan of Care Comments patient remains appropriate for skilled physical therapy to strengthen, improve flexibility, improve gait and balance to reduce risk of falls and maximize indpendent living Recertification Information Recertification Start Date 07/22/22 Recertification Due Date 08/21/22 Reasons to Continue Skilled Therapy patient had recent set back after working more with things her kids brought out of basement and attic to sort through. Pain through hip joint and groin difficult to treat due to combination of vertigo and imbalance so does not tolerate supine nor standing very well. Rehabilitation Potential good, may require additional visits due to level of deconditioning she experienced after of her daughter last year and depression Ruthann experiences Continued Plan of Care and Interventions TE, neuro, gait, TA, MT, US, estim anticipate additional 8 visits Provider Signature Shows Agreement With POC & Medical Necessity Physician Comment/Change Comment or Changes
--- NOTE | 2022-07-27 09:38 | PT.OPDN ---
PT [facility] Outpatient Daily Note PT [facility] Outpatient Daily Note Start: 03/23/22 10:11 Freq: Status: Active Protocol: Document 07/26/22 15:51 BMS (Rec: 07/26/22 15:51 BMS [id number]) E-signed By Sophia Crockett, PT PT OP Daily Progress Note Visit Information Note Type Daily Note Visit Number [id number] Insurance Information Recert Due Date 08/21/22 Insurance Name Medicare B Medical Diagnosis R thigh pain, Treating Diagnosis R thigh pain, ITB balance abnormal gait Referring MD Sanjuanita FUENTES Subjective Subjective doing ok. was more sore yesterday and Mon as we finished going through attic and basement. I did go up and down the stairs a few times to basement Precautions Treatment Precautions/Contraindications cataract surgery seeing much better per EMR past medical hx + for: Iliotibial band syndrome of right side (Acute) M76.31 Atrial fibrillation (Acute) I48.91 Ventricular tachycardia (Acute 12/02/12) I47.2 Presence of implantable cardioverter-defibrillator ( ICD) (Acute 06/04/12) Z95.810 Osteopenia (Acute 12/27/12) M85.80 Lymphedema of upper extremity (Acute) I89.0 Chronic kidney disease (Acute) N18.9 CHF (congestive heart failure) (Acute) I50.9 Cardiomyopathy (Acute 06/04/12 ) I42.9 Benign paroxysmal positional vertigo (Acute) H81.10 Anticoagulation goal of INR 2 to 3 (Acute) Z51.81, Z79.01 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 Date: 07/20/2022 Prepared by: Sophia Crockett Exercises - seated hip and knee extension with band - 1 x daily - 5 x weekly - 1-3 sets - 10-20 reps - 5-10 sec hold - Seated Hip Abduction with Resistance - 1 x daily - 5 x weekly - 1-3 sets - 10-20 reps - 5-10 sec hold - Seated Long Arc Quad - 1 x daily - 5 x weekly - 1-3 sets - 10-20 reps - 5-10 sec hold - Seated Ankle Plantarflexion with Resistance - 1 x daily - 5 x weekly - 1-3 sets - 10-20 reps - 5-10 sec hold Objective Other/Pertinent Objective tolerated 2x 10 exercises this date with less c/o pain. while gait is antalgic she is better able to stabilize, turn head and demo increased ability to multitask. Improved participation and energy level noted Patient Instructed in Risks/Benefits Yes Therapeutic Exercise Therapeutic Exercise Minutes (minutes) 20 Therapeutic Exercise: To Restore all ex B with abdominal Functional Status engagement to imrpove core stability and better mechanics of lower limb -standing hip abduction 2 x 10 -standing hip extension 2x10 -heel raises B x 15, toe raises B x20 -reclined SLR x 10 -standing hamstring curls x 10 Manual Therapy Techniques Manual Therapy Minutes (minutes) 12 Manual Therapy Techniques STM MFR to entire LE, focus on proximal thigh and into groin . long axis leg pull in long sit due to hx of vertigo symptoms and patient decline laying further reclined at this time. some STM and MFR into lateral thigh and hip as well. Treatment Minutes Timed Code Treatment Minutes 32 Total Treatment Time 32 Billing Units Manual Therapy Units 1 Therapeutic Exercise Units 1 Assessment/Impression Assessment/Impression sorry am late, stopped by [address] short session today due to late due to trains. patient was able to perform 2 sets of ex with good technique and no complaints of increased pain or fatigue. manual therapy does still seem to improve symptoms though limited positioning due to chronic vertigo makes hip mobilizations quite difficult Plan of Care Physical Therapy Goals STG meet 2-3 weeks 1) Pt demo I HEP and self care/home mgmt techniques for improved pain management and performance of independent ADLs including transfers and grooming. 2) Pt report pain <= 2/10 with ambulation >30 min IADL i.e. grocery or necessity shopping. LTG meet 4-6 weeks 1) Pt demo gait pattern without antalgia, with equal stride lengths and demo appropriate hip, knee, and ankle motions. 2) Pt demo appropriate balance responses to decrease risk of falls with internal and external perturbations. 3) Pt demo ability to squat and lift without increased pain. Daily Plan of Care Continue per POC Daily Plan of Care Comments patient remains appropriate for skilled physical therapy to strengthen, improve flexibility, improve gait and balance to reduce risk of falls and maximize indpendent living Recertification Information Recertification Start Date 07/26/22 Recertification Due Date 08/25/22 Reasons to Continue Skilled Therapy patient had setback after hospitalization. She has recovered to place where energy last session was sufficient to tolerate increased repetitions of ex, will continue to work on gait, strength, mobility, balance and pain management. Rehabilitation Potential good, multiple factors impact recovery including chronic vestibular deficit, pain and functional weakness, medical comorbidities and mental health challenges after daughter's last year. Continued Plan of Care and Interventions ther ex, neuro, gait, ther activity, manual therapy, ultrasound Provider Signature Shows Agreement With POC & Medical Necessity Physician Comment/Change Comment or Changes Physician NPI Number #
--- NOTE | 2022-09-12 16:03 | PT.OPDN ---
PT Max Outpatient Daily Note PT [facility] Outpatient Daily Note Start: 03/23/22 10:11 Freq: Status: Active Protocol: Document 09/12/22 10:10 BMS (Rec: 09/12/22 11:22 BMS [id number]) E-signed By Sophia Crockett, PT PT OP Daily Progress Note Visit Information Note Type Daily Note Visit Number [id number] Insurance Information Recert Due Date 10/13/22 Insurance Name Medicare B Medical Diagnosis R thigh pain, Treating Diagnosis R thigh pain, ITB balance abnormal gait Referring MD Sanjuanita FUENTES Subjective Subjective It is better a lot but not completely better. am up to 10 sometimes 20 repetitions with the exercises if I do them twice a day. Pain Comments bettter than it was, can stand and do somethings around the house now for an hour or 2 then I have to sit and rest it for 10 min or so before can do more bc pain. Precautions Treatment Precautions/Contraindications cataract surgery seeing much better per EMR past medical hx + for: Iliotibial band syndrome of right side (Acute) M76.31 Atrial fibrillation (Acute) I48.91 Ventricular tachycardia (Acute 12/02/12) I47.2 Presence of implantable cardioverter-defibrillator ( ICD) (Acute 06/04/12) Z95.810 Osteopenia (Acute 12/27/12) M85.80 Lymphedema of upper extremity (Acute) I89.0 Chronic kidney disease (Acute) N18.9 CHF (congestive heart failure) (Acute) I50.9 Cardiomyopathy (Acute 06/04/12 ) I42.9 Benign paroxysmal positional vertigo (Acute) H81.10 Anticoagulation goal of INR 2 to 3 (Acute) Z51.81, Z79.01 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 Medical History (Updated 01/25 @ 12:55 by Sanjuanita Goldman PA-C) Acute gallstone pancreatitis Cyst of pancreas History of herpes zoster (08/31) History of non-Hodgkin's lymphoma (06/04/12) Malignant neoplasm of breast ( 06/04/12) Migration of pancreatic stent Surgical History (Updated @ 13:42 by Reginald Villalpando) History of atrioventricular mayito ablation (06/04/12) History of breast biopsy () History of cholecystectomy History of endoscopic retrograde cholangiopancreatography Home Exercise Home Exercise Comments increase to 20 reps or 2 sets of 10 Access Code: [email or web address] URL: [email or web address] Date: 07/20/2022 Prepared by: Sophia Crockett Exercises - seated hip and knee extension with band - 1 x daily - 5 x weekly - 1-3 sets - 10-20 reps - 5-10 sec hold - Seated Hip Abduction with Resistance - 1 x daily - 5 x weekly - 1-3 sets - 10-20 reps - 5-10 sec hold - Seated Long Arc Quad - 1 x daily - 5 x weekly - 1-3 sets - 10-20 reps - 5-10 sec hold - Seated Ankle Plantarflexion with Resistance - 1 x daily - 5 x weekly - 1-3 sets - 10-20 reps - 5-10 sec hold [ End ] Objective Other/Pertinent Objective moderate limp able to correct to ~ 10% limp with use of B UE assist (rail and cane) but refuses to use walker and had difficulty with coordinating use of unilateral SPC this date. tolerated increased resistance and repetitions of exercises this date Patient Instructed in Risks/Benefits Yes Therapeutic Exercise Therapeutic Exercise Minutes (minutes) 30 Therapeutic Exercise: To Restore -bike 6 min 4.0 resist Functional Status -standing 3# ankle weights hip abduction 2x15 B, [id number] B -leg press 50# x20 -heel raises 2x10 -hamstring curls 2# x 10 standing -step ups 62x 15 fwd each side blocked, lateral 2x 15 each side use of 1 rail Manual Therapy Techniques Manual Therapy Minutes (minutes) 14 Manual Therapy Techniques STM MFR to entire LE, through adductors, quad, HS, calf and ITB. long axis leg pull in long sit due to hx of vertigo symptoms and patient decline laying further reclined at this time. some STM and MFR into lateral thigh and hip as well. Treatment Minutes Timed Code Treatment Minutes 44 Total Treatment Time 44 Billing Units Manual Therapy Units 1 Therapeutic Exercise Units 2 Assessment/Impression Assessment/Impression Patient returns after self managing 2.5 weeks. She demo increased limp with more offloading of R side and functional weakness noted though she was well able to perform ex with increased resistance and/or repetitions this date despite only performing 10 reps of home ex program. Patient refuses supine due to fear of vertigo symptoms (also refuses vertigo assess/treat) so limited in tests able to perform. Patient also demo significant tightness in R hip adductors this date. She remains appropriate for skilled physical therapy intervention focus on R LE strength and mobility, pain management. Will reintroduce idea of shoe insert/orthotic at next visit though patient is reluctant re : out of pocket expense on fixed income. Recommend patient use assistive device to offload affected limb though she is resistant to this idea. therapist strongly recommends patient work diligently on increasing reps and resistance to build strength and balance ex as instructed in prior level Plan of Care Physical Therapy Goals STG meet 2-3 weeks MET 1) Pt demo I HEP and self care/home mgmt techniques for improved pain management and performance of independent ADLs including transfers and grooming. PROGRESSING 2) Pt report pain <= 2/10 with ambulation >30 min IADL i.e. grocery or necessity shopping. LTG meet 4-6 weeks STILL ANTALGIC 1) Pt demo gait pattern without antalgia, with equal stride lengths and demo appropriate hip, knee, and ankle motions. 2) Pt demo appropriate balance responses to decrease risk of falls with internal and external perturbations. PROGRESSING3) Pt demo ability to squat and lift without increased pain. Daily Plan of Care Continue per POC Daily Plan of Care Comments patient remains appropriate for skilled physical therapy to strengthen, improve flexibility, improve gait and balance to reduce risk of falls and maximize indpendent living Recertification Information Initial Certification Date 03/23/22 Recertification Start Date 09/12/22 Recertification Due Date 10/12/22 Reasons to Continue Skilled Therapy patient had lapse in care Apr to June, then as we have begun to wean appt and decrease frequency to every 1-2 weeks she has experienced increased pain and demo more impaired gait pattern. Patient states is still better than she was prior to PT intervention but not fully back to usual tasks. Rehabilitation Potential good, multiple factors impact recovery including chronic vestibular deficit, pain and functional weakness, medical comorbidities and mental health challenges after daughter's last year. also complicated by unwilling/ unable to lie flat due to recurrent vertigo which she is not interested in treatment for Continued Plan of Care and Interventions ther ex, neuro, gait, ther activity, manual therapy, ultrasound Provider Signature Shows Agreement With POC & Medical Necessity Physician Comment/Change Comment or Changes Physician NPI Number #
== END 2023-02-09 23:59 | disposition home or self-care (01) ==
PROVIDERS: PCP Physician Assistant Medical; Visit Provider Physician Assistant Medical
DX: M79.651 Pain in right thigh (principal); Z51.89 Encounter for other specified aftercare
CPT/HCPCS: 97035; 97110; 97112; 97140; 97162; 97164; 97165; 97530

== ENCOUNTER 2022-11-15 09:45 | Outpatient (RCR) | payer MEDICARE, SELFPAY ==
--- NOTE | 2022-07-27 18:02 | OT.OPLE ---
OT Outpatient Lymphedema Eval OT Outpatient Lymphedema Eval Start: 07/27/22 17:35 Freq: Status: Active Protocol: Document 07/27/22 17:36 AMB (Rec: 07/27/22 18:02 AMB [id number]) E-signed By Venus Darby, OTR/L, CLT, AUTOMOTIVE SERVICE ASSISTANT OT Outpatient Evaluation Details Type Type Eval Complexity Low OT OP Lymphedema Evaluation Insurance Information Insurance Information Medicare B Current Condition/Medical Diagnosis Referring Provider Sanjuanita Goldman PA-C Treatment Diagnosis RUE lymphedema Date Of Onset Chronic Other Precautions Precautions/Contraindications Cancer Congestive Heart Failure Hypertension Obesity Renal Disease PMH: Pt states she had breast cancer 25 years ago and underwent a lumpectomy wiht 4 SLN removed. Pt also had 30 sessions of radiation. Pt also has a hx of lymphoma 15 years ago and was treated with chemo at that time as well. Pt developed lymphedema approximately 6 years ago and received treatment at [place] which included wrapping and she eventually got sleeves and a lymphedema pump. Pt continues to use her pump and sleeves. Pt was seen in this clinic in December of 2019 as well as in January of 2021 and received treatment including wraps for reduction prior to referring to tailor women's garment alteration for new sleeves each time. Pt responded well to therapy and was able to meet her goals . PMH also includes ventricular tachycardia, osteopenia, HTN, CHF, CKD, pancreatic cyst, Atrial flutter, cardiomyopathy, chronic anticoagulatoin, breast cancer, vertigo, s/p implantation of automatic cardioverter/defibrillator, ERCP. Medical Contraindications HTN,CA Current Work Status Current Work Status Retired Subjective Subjective Pt states she has had an exacerbation of her lymphedema in her right arm. Pt was hospitalized in April due to a UTI, she had a re- hospitalization 3 days after being discharged due to new development of bacterial pneumonia. Pt is not sure if her swelling has been exacerbated by that or what has happened. Pt continues to use her lymphedema pump 2x daily, wears a Carisia night garment and flat knit 20-30 sleeve and glove during the day. Garments are a year old and pt knows that she is in need of replacements, hoping to reduce her arm in order to get new ones that provide better compression. Pt denies any pain. Pt is working with Sophia Crockett, PT for RLE problems as well. Medical History Medical History Cancer Treatment/Surgery,CHF, Obesity,Heart Disease,Renal Disease,Radiation Surgical History Surgical History History of atrioventricular mayito ablation (06/04/12) Z98.890 - Other specified postprocedural states (ICD-10) History of breast biopsy () Z98.890 - Other specified postprocedural states (ICD-10) History of cholecystectomy Z90.49 - Acquired absence of other specified parts of digestive tract (ICD-10) History of endoscopic retrograde cholangiopancreatography Z98.890 - Other specified postprocedural states (ICD-10) Medications Medications amiodarone 100 mg (1/2 x 200 mg) PO DAILY carvedilol 25 mg PO BID diclofenac sodium 1% 4 grams topical QID enalapril maleate 20 mg PO BID furosemide 20 mg PO QDAY melatonin 5 mg PO HS PRN warfarin 3 mg See Protocol PO .UD Contraindications Contraindications General Contraindications Comments Pt has difficulty with laying supine due to vertigo, also has kidney and heart disease, both of which are well controlled per pt. Family History Family History of Lymphedema No Living Situation Current Living Situation Private Home/Apartment (Alone) Patient Difficulties Patient Difficulties Comments Pt has difficulty with wearing long sleeve shirts due to the size of her arm, also has difficulty reaching into higher cupboards due to heaviness in her arm. Exercise History Does Patient Exercise Regularly Yes Exercise Comments Working with PT to address RLE problems. Pain Pain No Loss of Function/Strength/Mobility Loss Of Function/Strength/Mobility Yes Loss Of Function/Strength/Mobility Weakness in RUE and difficulty Comments reaching due to heaviness Previous Treatment Previous Treatment For Swelling/ MLD,Compression Pump, Lymphedema Compression Garment,Multi- Layer Compression Bandages, Exercise,Elevation,Self Massage Compression History Does Patient Currently Wear Compression Yes During Daytime Compression During Daytime Comments Flat knit 20-30 sleeve and glove Does Patient Currently Wear Compression Yes At Night Compression At Night Comments Carissia Current Swelling (Location/Pitting/Texture) Pitting Scale: 0 = No pitting 1+ Tissue returns to normal almost immediately 2+ Tissue returns after 15-30 seconds 3+ Tissue returns after 1-1/2 minutes 4+ Tissue returns after 2-3 minutes N/A Tissue no longer pits due to induration Tissue texture: Soft or indurated Clinical Presentation Area RUE fingers, hand, wrist, and forearm, mild in the upper arm . Clinical Presentation Pitting Gr 3 in the dorsal hand, gr 2 in the forarm Clinical Presentation Texture Thick, brawny Triggering Event & Start Date of Breast cancer surgery and Swelling/Lymphedema radiation Type of Swelling Secondary,Post Surgery/ Traumatic Edema Staging Staging Stage 3 Positive Stemmer's Sign Yes Circumferential Measurements Upper Extremity Left Upper Extremity Base Of Third Finger 6.0 MCP 18.0 Palm 17.8 Wrist 15.5 10cm 19.0 20cm 24.6 30cm 31.2 40cm 37.0 50cm 39.1 Total 208.2 Difference 23.5 Right Upper Extremity Base Of Third Finger 6.6 MCP 20 Palm 20.8 Wrist 17.1 10cm 26.0 20cm 31.0 30cm 33.0 40cm 37.0 50cm 40.2 Total 231.7 Difference 23.5 Assessment Assessment Pt is a very pleasant 81yo female referred to OT secondary to chronic lymphedema in her RUE secondary to breast cancer surgery and treatment. Pt is familiar to this clinic as she has received services with good outcomes in the past. Pt has had an exacerbation of her swelling, likely due to recent hospitalization due to UTI and then again for pneumonia. Pt is also in need of new compression garments as her current ones are not providing adequate compression . Pt has also lost 10# due to her recent illness, this may impact fit of her garments as well. Circumferential measurements were taken of BUE and compared, total measurements are 23.5cm larger on the RUE, pt demonstrates gr 3 pitting edema in the dorsal hand and gr 2 pitting edema in the forearm. Pt is at high risk for cellulitis and further lymphedema related complications. Pt will benefit from skilled OT intervention to address/reduce swelling, in order to decrease these risks as well as to address garment needs. Impairments Impairments Loss of Mobility,Difficulties With ADLs,Limb Heaviness,Poor Clothing Fit Problem List Problem List Significant Risk For Infection For Lymphedema Related Complications,Does Not Have Appropriate Compression Garments For LT Management, Presents With Impaired Mobility/ROM Patient Goals Patient Goals 1. Pt will be independent and compliant with home program for lymphedema management in order to achieve and maintain best outcomes. 4 weeks 2. Pt will demonstrate a reduction of at least 12cm from total measurement of the RUE in order to reduce risk for exacerbation of lymphedema , infection and further lymphedema related complications. 8 weeks 3. Pt will obtain appropriate compression for LT management of her lymphedema. 10 weeks. Treatment Plan Treatment Plan Evaluation,Edema Control,Joint Mobilization,Manual Therapy, Therapeutic Exercise, Therapeutic Activities, Caregiver Training,Education Expected Frequency 1-2x Week Expected Duration 8-10 Weeks Certification Certification I Certify That: Therapy Services Provided, Therapy Plan Established, Therapy Plan Reviewed Recertification Information Recertification Information Initial Certification Date 07/27/22 Recertification Due Date 10/25/22 Reasons to Continue Skilled Therapy Initiating OT today to address lymphedema in her RUE Continued Plan of Care and Interventions Please see above Provider Signature Shows Agreement With POC & Medical Necessity Physician Comment/Change Comment or Changes Physician NPI Number #
--- NOTE | 2022-11-15 12:27 | OT.OPLDN ---
OT Outpatient Lymphedema Daily Note OT Outpatient Lymphedema Daily Note Start: 07/27/22 17:35 Freq: Status: Active Protocol: Document 11/15/22 12:02 AMB (Rec: 11/15/22 12:27 AMB [id number]) E-signed By Venus Darby, OTR/L, CLT, FLOOR REPRESENTATIVE OT OP Lymphedema Daily/Progress Note Note Type Note Type Daily,Recert/Progress Note Insurance Authorized Visits 10 Insurance Information Insurance Information Medicare B Current Condition/Medical Diagnosis Referring Provider Sanjuanita Goldman PA-C Treatment Diagnosis RUE lymphedema Date Of Onset Chronic Other Precautions Precautions/Contraindications Cancer Congestive Heart Failure Hypertension Obesity Renal Disease PMH: Pt states she had breast cancer 25 years ago and underwent a lumpectomy wiht 4 SLN removed. Pt also had 30 sessions of radiation. Pt also has a hx of lymphoma 15 years ago and was treated with chemo at that time as well. Pt developed lymphedema approximately 6 years ago and received treatment at [place] which included wrapping and she eventually got sleeves and a lymphedema pump. Pt continues to use her pump and sleeves. Pt was seen in this clinic in December of 2019 as well as in January of 2021 and received treatment including wraps for reduction prior to referring to pipe fitter maintenance for new sleeves each time. Pt responded well to therapy and was able to meet her goals . PMH also includes ventricular tachycardia, osteopenia, HTN, CHF, CKD, pancreatic cyst, Atrial flutter, cardiomyopathy, chronic anticoagulatoin, breast cancer, vertigo, s/p implantation of automatic cardioverter/defibrillator, ERCP. Medical Contraindications HTN,CA Subjective Subjective Pt received her glove in a size large, still feels tight but pt feels it is because it is new. Pt states after having it on for a little while it is fine and she wants to keep with this one. Home Program Compliant To Home Program Yes Home Program Specifics Daily compression, lymphedema pump, exs Circumferential Measurements Upper Extremity Left Upper Extremity Base Of Third Finger 6.0 MCP 18.0 Palm 17.8 Wrist 15.5 10cm 19.0 20cm 24.6 30cm 31.2 40cm 37.0 50cm 39.1 Total 208.2 Difference 23.5 Right Upper Extremity Base Of Third Finger 6.2 MCP 19.0 Palm 19.3 Wrist 16.0 10cm 23.5 20cm 29.5 30cm 32.3 40cm 37.0 50cm 38.5 Total 221.3 Treatment Self Care Review of home program for self management of her lymphedema with recommendations to continue with daily compression using sleeve and glove and night time garment at night. Pt states she's not always able to wear the night garment as it gets too hot but she alternates with the sleeve and garment. Also recommended continued use of swell spot at dorsal hand at night, during the day when she is able. Pt continues to use her lymphedema pump daily and exs most days. Also reviewed use of KT tape with re- application today, recommended use prn. Self Care Activity Minutes (minutes) 23 Assessment Current sleeve and gauntlet seem to be working out for pt, she is happy with them. Circumferential measurements are stable and controlled. Pt feels she is ready to discharge back to independent management of her lymphedema with compression, exercise, and pump. Goals have been met or partially met. Impairments Loss of Mobility,Difficulties With ADLs,Limb Heaviness,Poor Clothing Fit Problem List Significant Risk For Infection For Lymphedema Related Complications,Does Not Have Appropriate Compression Garments For LT Management, Presents With Impaired Mobility/ROM Patient Goals Patient Goals 1. Pt will be independent and compliant with home program for lymphedema management in order to achieve and maintain best outcomes. 4 weeks Met 2. Pt will demonstrate a reduction of at least 12cm from total measurement of the RUE in order to reduce risk for exacerbation of lymphedema , infection and further lymphedema related complications. 8 weeks Partially met 3. Pt will obtain appropriate compression for LT management of her lymphedema. 10 weeks. Met Treatment Plan Treatment Plan Evaluation,Edema Control,Joint Mobilization,Manual Therapy, Therapeutic Exercise, Therapeutic Activities, Caregiver Training,Education Expected Frequency 1-2x Week Expected Duration 8-10 Weeks Treatment Minutes Untimed Treatment Minutes 30 Timed Treatment Minutes 41 Total Timed Treatment Minutes 41 Occupational Therapy Billing Units Billing Units Self Care/Home Management 1 Certification Certification I Certify That: Therapy Services Provided, Therapy Plan Established, Therapy Plan Reviewed Recertification Information Recertification Information Initial Certification Date 07/27/22 Recertification Start Date 10/25/22 Recertification Due Date 11/15/22 Reasons to Continue Skilled Therapy Pt required one additional visit past initial certification due to garments needing to be returned and re- ordered, did not arrive prior to expiration of initial cert period. Rehabilitation Potential Good Continued Plan of Care and Interventions Final garment fitting and review of self management / home program. Provider Signature Shows Agreement With POC & Medical Necessity Physician Comment/Change Comment or Changes Physician NPI Number # Discharge Note Discharge Note Discharge Summary Please see PN above. Date of First Visit for Therapy 07/27/22 Date of Last Visit for Therapy 11/15/22 Initial Primary Functional Limitations/ Uncontrolled lymphedema RUE Concerns Interventions Provided During Treatment Manual Therapy,Therapeutic Activities,Therapeutic Exercise,Self Care/Home Management Recommendations/Reason for Discharge Met All Therapy Goals,Progress Cont w/HEP Discharge Instructions Continue with self management including compression, exercise, lymphedema pump
== END 2022-11-15 12:31 | disposition home or self-care (01) ==
PROVIDERS: PCP Physician Assistant Medical; Visit Provider Physician Assistant Medical
DX: I89.0 Lymphedema, not elsewhere classified (principal); Z51.89 Encounter for other specified aftercare
CPT/HCPCS: 97140; 97165; 97530; 97535

== ENCOUNTER 2022-11-16 10:02 | Outpatient (CLI) | payer MEDICARE, SELFPAY ==
--- NOTE | 2022-11-16 10:15 | CRLHL7_ITS ---
For Patients: As a result of the Century Cures Act, medical imaging exams and procedure reports are released immediately into your electronic medical record. You may view this report before your referring provider. If you have questions, please contact your health care provider. Indication: Right hip pain Comparison: 10/25/2022 Procedure : Informed consent was obtained. The site was marked. Time-out was performed. The skin of the right hip was cleansed with ChloraPrep. A sterile drape was placed. 8 cc of 1 percent lidocaine was administered for superficial anesthesia. Subsequently a 22 gauge spinal needle was introduced into the right hip joint under intermittent fluoroscopic guidance. Injection of 7 cc 1 percent lidocaine and 2 cc 40 milligram/cc Depo-Medrol then performed. The needle was removed and hemostasis achieved with direct pressure. A dressing was placed. The patient tolerated the procedure well without immediate complication. Total fluoroscopy time 22 seconds. Impression: Successful fluoroscopically guided right hip injection with 80 milligrams Depo-Medrol. Dictated by Arvind Posada MD @ 11/16/2022 11:31:18 AM (Electronically Signed)
== END 2022-11-16 10:03 | disposition home or self-care (01) ==
LOC: RAD 10:03
PROVIDERS: PCP Physician Assistant Medical; Visit Provider Orthopaedic Surgery Sports Medicine
DX: M25.551 Pain in right hip (principal); M16.11 Unilateral primary osteoarthritis, right hip
CPT/HCPCS: 20610; 77002; J1030; Q9966

== ENCOUNTER 2023-01-10 08:59 | Outpatient (CLI) | payer MEDICARE, SELFPAY | END 2023-01-10 09:00 | disposition home or self-care (01) | LOC: NFLDREF 01-12 20:01 | PROVIDERS: PCP Physician Assistant Medical; Referring Provider Physician Assistant Medical; Visit Provider Physician Assistant Medical | DX: E53.8 Deficiency of other specified B group vitamins (principal); R79.89 Other specified abnormal findings of blood chemistry; E55.9 Vitamin D deficiency, unspecified; Z51.81 Encounter for therapeutic drug level monitoring; Z79.01 Long term (current) use of anticoagulants | CPT/HCPCS: 82306; 82607 ==

== ENCOUNTER 2023-09-18 09:41 | Outpatient (CLI) | payer MEDICARE, SELFPAY | END 2023-09-18 09:42 | disposition home or self-care (01) | LOC: NFLDREF 09-19 09:29 | PROVIDERS: PCP Physician Assistant Medical; Referring Provider Physician Assistant Medical; Visit Provider Physician Assistant Medical | DX: E78.5 Hyperlipidemia, unspecified (principal); E53.8 Deficiency of other specified B group vitamins; R79.89 Other specified abnormal findings of blood chemistry; I50.9 Heart failure, unspecified; I42.9 Cardiomyopathy, unspecified; E55.9 Vitamin D deficiency, unspecified; Z79.01 Long term (current) use of anticoagulants; Z51.81 Encounter for therapeutic drug level monitoring | CPT/HCPCS: 80053; 80061; 82306; 82607 ==

== ENCOUNTER 2023-11-01 12:46 | Outpatient (CLI) | payer MEDICARE, SELFPAY ==
--- NOTE | 2023-11-01 13:00 | CRLHL7_ITS ---
For Patients: As a result of the Century Cures Act, medical imaging exams and procedure reports are released immediately into your electronic medical record. You may view this report before your referring provider. If you have questions, please contact your health care provider. DXA BONE MINERAL DENSITY STUDY Reason for exam: Osteoporosis. Current height (in): 64. Weight (lb): 170. Menopause age: 59. Ethnicity: White. 1. Have you had a previous hip or vertebral fracture? No. 2. Have you had any fractures during your adult life which did not result from significant trauma (e.g., auto accident)? No. 3. Did either of your parents have a hip fracture? No. 4. Do you smoke? No. 5. Have you ever taken Glucocorticoids? No. 6. Do you have rheumatoid arthritis? No. 7. Do you have secondary osteoporosis? No. 8. Do you drink 3 or more alcoholic drinks per day? No. 9. Are you being treated for osteoporosis? No. 10. Have you ever taken any of the following medications: Actonel, Evista, Fosamax, Miacalcin, Reclast, Boniva, Forteo, HRT (i.e. estrogen/hormone therapy), Protelos, Prolia, Vitamin D, Calcium, other ??? please specify. ANSWER: Yes, vitamin D and calcium. 11. Do you have any of the following medical conditions: Anorexia or bulimia, asthma or emphysema, end stage renal disease, hyperparathyroidism, any seizure disorders, cancer, inflammatory bowel diseases, hysterectomy, other ??? please specify. ANSWER: No. 12. What was your maximum height (inches)? 66. 13. Do you perform weight bearing exercise regularly? Yes. 14. Do you regularly consume dairy products? Yes. 15. Do you drink caffeinated beverages? No. 16. At what age did your period start? 14. 17. Are you premenopausal? No. 18. How many full term pregnancies have you had? 5. 19. Have you ever missed your period for more than 6 months in a row (not including or menopause)? No. TECHNIQUE: Bone mineral density study was performed using the [employer]. FINDINGS: The results of the study expressed as bone mineral density (BMD) are as follows: Lumbar spine L1 to L4: BMD: 1.042 g/cm2. T-score: 0.0. Z-score: 2.7. Neck Left: BMD: 0.649 g/cm2. T-score: -1.8. Z-score: 0.6. Right: BMD: 0.722 g/cm2. T-score: -1.1. Z-score: 1.3. Total Left: BMD: 0.936 g/cm2. T-score: -0.0. Z-score: 2.1. Right: BMD: 0.899 g/cm2. T-score: -0.4. Z-score: 1.8. IMPRESSION: Osteopenia. *Comparison exams done prior to 07/2019 were performed on different unit, [employer]. COMPARISON: Compared with scan of 10/07/2018, the bone mineral density has decreased by 6.3 percent at the spine and increased by 6.7 percent at the hip. Compared with scan of 08/09/2015, the bone mineral density has increased by 12.7 percent at the spine and decreased by 1.0 percent at the hip. FRAX 10-year Fracture Risk Major Osteoporotic Fracture: 14 percent Hip Fracture: 3.9 percent Reported Risk Factors: [place] () Neck BMD=0.649, BMI=29.2 Arvind Posada M.D. Diagnostic Radiologist [email or web address] SP/Dictated by: Arvind Posada MD @ 11/02/2023 11:08:00 AM (Electronically Signed)
== END 2023-11-01 12:47 | disposition home or self-care (01) ==
LOC: RAD 12:48
PROVIDERS: PCP Physician Assistant Medical; Visit Provider Physician Assistant Medical
DX: M81.0 Age-related osteoporosis without current pathological fracture (principal); M85.89 Other specified disorders of bone density and structure, multiple sites
CPT/HCPCS: 77080

== ENCOUNTER 2023-11-20 13:44 | Outpatient (CLI) | payer MEDICARE, SELFPAY ==
--- NOTE | 2023-11-20 14:00 | CRLHL7_ITS ---
For Patients: As a result of the Century Cures Act, medical imaging exams and procedure reports are released immediately into your electronic medical record. You may view this report before your referring provider. If you have questions, please contact your health care provider. BILATERAL SCREENING MAMMOGRAM WITH COMPUTER-AIDED DETECTION AND TOMOSYNTHESIS TECHNIQUE: CC and MLO views were obtained. These mammographic images have been obtained using full-field digital technique. These mammographic images were interpreted with the benefit of computer-aided detection. Breast Tomosynthesis was used in this interpretation. COMPARISON FILM: 10/19/20, 10/13/19, 10/07/18. FINDINGS: There are scattered areas of fibroglandular density. IMPRESSION: There is no radiographic evidence for malignancy. ASSESSMENT: BI-RADS Category 2: Benign RECOMMENDATION: Routine screening mammogram in 1 year. A lay language report of this examination will be provided to the patient. Arvind Posada M.D. Diagnostic Radiologist [email or web address] SP/Dictated by: Arvind Posada MD @ 11/23/2023 10:57:00 AM (Electronically Signed)
== END 2023-11-20 13:45 | disposition home or self-care (01) ==
LOC: MAMMO 13:45
PROVIDERS: PCP Physician Assistant Medical; Visit Provider Physician Assistant Medical
DX: Z12.31 Encounter for screening mammogram for malignant neoplasm of breast (principal)
CPT/HCPCS: 77063; 77067

== ENCOUNTER 2024-01-15 09:45 | Outpatient (RCR) | payer MEDICARE, SELFPAY ==
--- NOTE | 2023-10-12 19:39 | OT.OPLE2 ---
OT Outpatient Lymphedema Eval* OT Outpatient Lymphedema Eval* Start: 10/12/23 07:22 Freq: Status: Active Protocol: Document 10/12/23 07:23 AMB (Rec: 10/12/23 19:35 AMB [id number]) E-signed By Venus Darby, OTR/L, CLT, GASOLINE TESTER OT Outpatient Evaluation Details Type Type Eval Complexity Low Insurance Information Insurance Information Insurance Information Medicare B Insurance Information Comments MC cert due 01/10/24 Home Program Home Program Home Program Compliant Home Program Specifics Compression garments day and night, lymphedema pump, exercises (although, pt has lost her exercise instructions and feels she needs a tune up), pt continues with good skin care habits and is aware of correlation of lymphedema / infection, monitors closely. OT OP Lymphedema Evaluation Current Condition/Medical Diagnosis Referring Provider Sanjuanita Goldman PA-C Medical Diagnoses Stage 3 Lymphedema RUE I89.0 Treatment Diagnosis Stage 3 Lymphedema RUE I89.0 Date Of Onset ~ 7 years ago / Chronic Other Precautions Pt has vertigo and has difficulty with lying flat. Medical Contraindications Depression,Heart Condition, Pacemaker,CA,Metal Implants, Arthritis Medical History Medical History Cancer Treatment/Surgery,CHF, Obesity,Heart Disease,Renal Disease,Radiation,Fall Risk, Arthritis Medical History Comments Pt reports hx of breast cancer 26 years ago, states she underwent a lumpectomy with 4 SLN removed. Pt also had 30 rounds of radiation therapy. Hx also includes lymphoma 16 years ago and was treated with chemo. Pt developed lymphedema in her arm approximately 7 years ago, she received treatment at [facility] in [place] which included wrapping and compression garments, sleeves and a lymphedema pump. Pt has been seen in this clinic on several occasions due to exacerbations of her lymphedema. She was last seen in clinic from July of 2022 - September of 2022. At that time she underwent limb reduction through modified MLD, exercise , multi-layer compression wraps and continued use of her lymphedema pump at home. Pt eventually obtained Solaris Flat Knit compression sleeve and gauntlet. Due to the shape of patient's arm with the upper arm being substantially larger than her lower arm as well as struggling with small wrist and dorsal hand swelling, pt would have benefitted greatly from custom garments but could not afford them. Pt has been wearing the same sleeve and gauntlet that she received over a year ago, her night garment is a Charisia, pt cannot remember how old this garment is and states it definitatley is showing it's wear. PMH (copied from medical chart ): Active Problems (Updated 09/18 @ 09:09 by Sanjuanita Goldman PA-C) Lesion of skin of cheek (Acute ) L98.9 - Disorder of the skin and subcutaneous tissue, unspecified (ICD-10) Osteoarthritis of right hip ( Acute) Severe M16.11 - Unilateral primary osteoarthritis, right hip (ICD -10) Lymphedema (Acute) I89.0 - Lymphedema, not elsewhere classified (ICD-10) Low vitamin B12 level (Acute) E53.8 - Deficiency of other specified B group vitamins ( ICD-10) Low vitamin D level (Acute) R79.89 - Other specified abnormal findings of blood chemistry (ICD-10) Durable power of prosecuting attorney for healthcare (Acute) POLST (Physician Orders for Life-Sustaining Treatment) ( Acute) Z78.9 - Other specified health status (ICD-10) Heart failure with reduced ejection fraction (Acute) Longstanding history of heart failure with reduced ejection fraction thought secondary to chemotherapy for breast cancer . No previous history of coronary artery disease. No previous coronary angiogram. No clinical evidence of heart failure exacerbation I50.20 - Unspecified systolic (congestive) heart failure ( ICD-10) Ventricular tachycardia (Acute 12/02/12) I47.2 - Ventricular tachycardia (ICD-10) Presence of implantable cardioverter-defibrillator ( ICD) (Acute 06/04/12) Z95.810 - Presence of automatic (implantable) cardiac defibrillator (ICD-10) Osteopenia (Acute 12/27/12) M85.80 - Other specified disorders of bone density and structure, unspecified site ( ICD-10) CHF (congestive heart failure) (Acute) I50.9 - Heart failure, unspecified (ICD-10) Cardiomyopathy (Acute 06/04/12 ) I42.9 - Cardiomyopathy, unspecified (ICD-10) Benign paroxysmal positional vertigo (Acute) H81.10 - Benign paroxysmal vertigo, unspecified ear (ICD- 10) Anticoagulation goal of INR 2 to 3 (Acute) INR was 1.7 on admission and increased to 2 on discharge. Because she is on antibiotic will need close follow-up of INR and adjusting warfarin as needed. Did look into apixaban as an alternative. Cost was $475/month so patient elected to continue warfarin Levofloxacin will require changes in warfarin dosing. Close monitoring. Z51.81 - Encounter for therapeutic drug level monitoring (ICD-10) Z79.01 - rodent exterminator (current) use of anticoagulants (ICD-10) 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 - Benign neoplasm of extrahepatic bile ducts (ICD- 10) Medical History (Updated 09/18 @ 09:09 by Sanjuanita Goldman PA-C) Low vitamin B12 level E53.8 - Deficiency of other specified B group vitamins ( ICD-10) Durable power of prosecuting attorney for healthcare POLST (Physician Orders for Life-Sustaining Treatment) Z78.9 - Other specified health status (ICD-10) Heart failure with reduced ejection fraction I50.20 - Unspecified systolic (congestive) heart failure ( ICD-10) NSTEMI (non-ST elevated myocardial infarction) I21.4 - Non-ST elevation ( NSTEMI) myocardial infarction (ICD-10) Elevated procalcitonin R79.89 - Other specified abnormal findings of blood chemistry (ICD-10) Urinary tract infection N39.0 - Urinary tract infection, site not specified (ICD-10) Atrial fibrillation I48.91 - Unspecified atrial fibrillation (ICD-10) 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 - Displacement of other gastrointestinal prosthetic devices, implants and grafts, initial encounter (ICD-10) Malignant neoplasm of breast ( 06/04/12) C50.919 - Malignant neoplasm of unspecified site of unspecified female breast (ICD -10) Lymphedema of upper extremity I89.0 - Lymphedema, not elsewhere classified (ICD-10) History of non-Hodgkin's lymphoma (06/04/12) Z85.72 - Personal history of non-Hodgkin lymphomas (ICD-10) History of herpes zoster (08/31) Z86.19 - Personal history of other infectious and parasitic diseases (ICD-10) Cyst of pancreas K86.2 - Cyst of pancreas (ICD- 10) Chronic kidney disease N18.9 - Chronic kidney disease , unspecified (ICD-10) Acute gallstone pancreatitis K85.10 - Biliary acute pancreatitis without necrosis or infection (ICD-10) Surgical History Surgical History Surgical History (copied from medical chart) (Updated @ 14:28 by Cindi Fonseca ~ [facility]): History of lumpectomy (1998) Z98.890 - Other specified postprocedural states (ICD-10) History of endoscopic retrograde cholangiopancreatography Z98.890 - Other specified postprocedural states (ICD-10) History of cholecystectomy Z90.49 - Acquired absence of other specified parts of digestive tract (ICD-10) History of breast biopsy () Z98.890 - Other specified postprocedural states (ICD-10) History of atrioventricular mayito ablation (06/04/12) Z98.890 - Other specified postprocedural states (ICD-10) Medications Medications amiodarone 100 mg (1/2 x 200 mg) PO DAILY carvedilol 25 mg PO BID cholecalciferol (vitamin D3) 1 ,250 mcg PO QWEEK enalapril maleate 20 mg PO BID furosemide 20 mg PO DAILY melatonin 5 mg PO HS PRN peg [id number] 1-0.2-0.2 % (Dry Eye Relief) 1 drp ophthalmic (eye) TID-QID PRN vitamin I07-oxbiuhi B1 1,000- 100 mg/mL mL IM .1xw warfarin 2 mg See Protocol PO DAILY Contraindications Contraindications Comments Pt has CHF and a pacemaker. CHF has been well managed, she was seen in clinic by her PCP on 09/18 with no concerns, she also has an appointment for a checkup with her opener tender next month. Also has CKD which has been well managed. Current Work Status Current Work Status Retired Subjective Subjective Pt states she has been faithfully wearing her ( Solaris flat knit 20-30mmHg) sleeve and gauntlet for the past year, states it's been better and containing her swelling than her previous garment (Jobst Sanam Strong / circular knit 30-40mmHg). Pt feels that over-all, this garment has been better at controlling her swelling than the Jobst garment, except that the fit is much tighter in her forearm but loose in her upper arm. Pt is also struggling a lot with dorsal hand swelling, feels the gauntlet does not provide consistent compression of her fingers, hand / wrist. Pt also states she continues to use her pump daily and has been trying to do her exercises, but she lost her sheets and can't remember all of them. Pt is noticing that it is really hard to lift her arm up to retrieve items from her cupboards and sometimes difficult to maggy clothing when she has to lift her right arm over her head. Pt would like to be seen to assess her current garments and to revisit her HEP, she also needs new garments and is hoping for something that fits more uniformly and provides consistent compression. Living Situation Current Living Situation Private Home/Apartment (Alone) Patient Difficulties Difficulties With Any Of The Following Sleeping In Bed Patient Difficulties Comments Pt is not able to sleep in her bed as lying flat causes vertigo, she sleeps in a recliner with her arm elevated . Impairments Impairments Loss of Mobility,Difficulties With ADLs,Limb Heaviness,Poor Clothing Fit Impairments Comments Pt has difficulty lifting her RUE up to retrieve items from her kitchen cabinets and sometimes has trouble putting clothing over her head because of the extra weight of her arm. Pt also has trouble with fitting into regular tops at times due to the circumferential size differences of her arms. Problem List Problem List Significant Risk For Infection For Lymphedema Related Complications,Does Not Have Appropriate Compression Garments For LT Management Problem List Comments Pt's current garments are over a year old, she only has one daytime set (OTS flat knit sleeve and glove) and one nighttime garment. Exercise History Does Patient Exercise Regularly Yes Exercise Comments Pt does try to do her lymphedema exercises daily but she has lost her copies of exercises and feels she needs to update them. Pain Pain No ROM/Strength ROM/Strength Comments Pt demonstrates limited AROM of the RUE shoulder to 100 deg , states her arm is so heavy that it is hard to lift, also has some shoulder pain. Previous Treatment Previous Treatment For Swelling/ MLD,Compression Pump, Lymphedema Compression Garment,Multi- Layer Compression Bandages, Exercise,Elevation,Self Massage Compression History Does Patient Currently Wear Compression Yes During Daytime Compression During Daytime Comments Pt has been wearing a Solaris Flat Knit compression sleeve and glove. These garments are over a year old and she only has one set. Due to the shape of patient's arm with the upper arm being substantially larger than her lower arm as well as struggling with small wrist and dorsal hand swelling , pt would have benefitted greatly from custom garments but could not afford them. Does Patient Currently Wear Compression Yes At Night Compression At Night Comments Pt's night garment is a Charisia, pt cannot remember how old this garment is and states it definitely is showing it's wear. Current Swelling (Location/Pitting/Texture) Pitting Scale: 0 = No pitting 1+ Tissue returns to normal almost immediately 2+ Tissue returns after 15-30 seconds 3+ Tissue returns after 1-1/2 minutes 4+ Tissue returns after 2-3 minutes N/A Tissue no longer pits due to induration Tissue texture: Soft or indurated Clinical Presentation Area RUE Triggering Event & Start Date of PMH of lumpectomy with removal Swelling/Lymphedema of 4 LN and 30 rounds of XRT ~ 7 years ago. Clinical Presentation Pitting/Texture Pt has gr 3+ pitting edema throughout her forearm and the dorsal hand. Soft edema noted in upper arm. Skin Changes Fibrosis,Limited Skin Mobility Skin Changes Comments Deep skin folds at wrist / hand and elbow. Positive Stemmer's Sign Yes Capillary Refill Brisk Type of Swelling Secondary Staging Staging Stage 3 Circumferential Measurements Upper Extremity Left Upper Extremity Base of Third Finger (in cm) 6.0 MCP (in cm) 17.7 Palm (in cm) 18.0 Smallest Wrist Measurement (in cm) 15.2 10 cm Above Smallest Wrist Measurement 19.8 20 cm Above Smallest Wrist Measurement 25.7 30 cm Above Smallest Wrist Measurement 32.0 40 cm Above Smallest Wrist Measurement 38.2 50 cm Above Smallest Wrist Measurement 40.0 Total Girth in cm 212.6 UE Volume C 245.10 UE Volume D 414.17 UE Volume E 664.97 UE Volume F 982.95 UE Volume G 1216.80 Upper Extremity Volume Total in cm 3,523.99 Right Upper Extremity Base of Third Finger (in cm) 7.2 MCP (in cm) 20.1 Palm (in cm) 21.0 Smallest Wrist Measurement (in cm) 16.3 10 cm Above Smallest Wrist Measurement 25.8 20 cm Above Smallest Wrist Measurement 30.5 30 cm Above Smallest Wrist Measurement 34.1 40 cm Above Smallest Wrist Measurement 42.1 50 cm Above Smallest Wrist Measurement 41.0 Total Girth in cm 238.1 UE Volume C 358.59 UE Volume D 632.05 UE Volume E 831.08 UE Volume F 1159.39 UE Volume G 1373.90 Upper Extremity Volume Total in cm 4,355.01 Assessment Assessment Pt is a very pleasant 83yo presenting to the clinic to address RUE Gr 3 lymphedema of her RUE secondary to Hx of breast cancer with surgical LN removal and 30 rounds of XRT. Pt has thick, pitting edema throughout her RUE forearm and dorsal hand, soft, non- pitting edema in the RUE upper arm. Note mild to moderate fibrosis in her RUE lower arm. Pt currently has one set of compression garments to wear during the day and one nighttime garment. All garments are well past their recommended usage period. Pt is currently wearing an OTS flat knit sleeve and glove (20 -30mmHg) during the day. Due to the significant difference in limb circumference in pt's lower arm vs upper arm, it does not provide uniform compression throughout her upper extremity for this reason, in addition to the pocketing of fluid in the dorsal hand, pt will benefit from a custom garment that will conform to pt's contours and provide even, consistent compression as well as a glove that fits appropriately that will contain the fluid on the dorsal surface of her hand. Pt will benefit from skilled OT intervention to address RUE lymphedema with emphasis on reducing pitting edema / limb girth, revising / restoring HEP to improve LT self management and for assistance in obtaining appropriate custom compression garments for day and nighttime use in order to reduce further exacerbation of her lymphedema and therefore reducing risk for cellulitis and further lymphedema related complicaitons. Patient Goals Patient Goals 1. Pt would like to review and update her HEP. 2. Pt would like new garments that fit better to assist her in self-managing her lymphedema. Short Term Goals (# of Weeks) 8 Short Term Goals 1. Pt will be independent and compliant with HEP targeted at improving lymphatic flow / drainage in the RUE in order to reduce swelling. 2. Pt will demonstrate improved active shoulder flexion to at least 130 deg to improve her ability to reach into her cabinets and maggy clothing over her head. 3. Noted reduction of fibrotic tissue in the RUE lower arm will be noted in order to improve lymphatic flow and drainage from hand and forearm . Care Home Goals (# of Weeks) [address] Sql Developer Goals 1. Pt will have a reduction of at least 8 cm from the total circumferential measurement of the RUE indicating reduced lymphedema and reduced risk for cellulitis in her RUE. 2. Pt will obtain appropriate compression garments for daytime and nighttime use for LT self-management of her chronic lymphedema. Treatment Plan Treatment Plan Evaluation,Edema Control, Manual Therapy,Therapeutic Exercise,Therapeutic Activities,Self-Care/Home Management,Education Other Treatment Plan Pt lives out of town and is elderly, is not able to get to the clinic more than 1-2 times per week. Expected Frequency 1-2x Week Expected Duration 12 weeks Certification Certification Statement I Certify That: Therapy Services Provided, Therapy Plan Established, Therapy Plan Reviewed Certification Information Clinic ID # [id number] Initial Certification Date 10/12/23 Recertification Due Date 01/10/24 Provider Signature Required Yes Provider Signature Shows Agreement With POC & Medical Necessity Physician NPI Number Write NPI# Here Physician Comment/Change Comment or Changes Physician Signature & Date Requested Please Sign/Date Here
== END 2024-05-14 23:59 | disposition home or self-care (01) ==
PROVIDERS: PCP Physician Assistant Medical; Visit Provider Physician Assistant Medical
DX: I89.0 Lymphedema, not elsewhere classified (principal); Z51.89 Encounter for other specified aftercare
CPT/HCPCS: 97110; 97140; 97165; 97535; X5282

== ENCOUNTER 2024-03-06 16:10 | Outpatient (CLI) | payer MEDICARE, SELFPAY | END 2024-03-06 16:11 | disposition home or self-care (01) | LOC: NFLDREF 03-10 08:56 | PROVIDERS: PCP Physician Assistant Medical; Referring Provider Physician Assistant Medical; Visit Provider Physician Assistant Medical | DX: E55.9 Vitamin D deficiency, unspecified (principal); E53.8 Deficiency of other specified B group vitamins | CPT/HCPCS: 82306; 82607 ==

== ENCOUNTER 2024-07-29 13:17 | Outpatient (CLI) | payer MEDICARE, SELFPAY | END 2024-07-29 13:18 | disposition home or self-care (01) | LOC: NFLDREF 07-30 03:59 | PROVIDERS: PCP Physician Assistant Medical; Referring Provider Physician Assistant Medical; Visit Provider Physician Assistant Medical | DX: E53.8 Deficiency of other specified B group vitamins (principal); E55.9 Vitamin D deficiency, unspecified; M85.80 Other specified disorders of bone density and structure, unspecified site | CPT/HCPCS: 82306; 82607 ==

== ENCOUNTER 2024-09-03 13:59 | Outpatient (CLI) | payer MEDICARE, SELFPAY | END 2024-09-03 14:00 | disposition home or self-care (01) | LOC: RAD 14:00 | PROVIDERS: PCP Physician Assistant Medical; Visit Provider Physician Assistant Medical | DX: I50.20 Unspecified systolic (congestive) heart failure (principal); I35.1 Nonrheumatic aortic (valve) insufficiency; I34.0 Nonrheumatic mitral (valve) insufficiency; I07.1 Rheumatic tricuspid insufficiency | CPT/HCPCS: 93306 ==

== ENCOUNTER 2024-09-16 10:57 | Outpatient (CLI) | payer MEDICARE, SELFPAY | END 2024-09-16 10:58 | disposition home or self-care (01) | PROVIDERS: PCP Physician Assistant Medical; Visit Provider Physician Assistant Medical | DX: E53.8 Deficiency of other specified B group vitamins (principal); R79.89 Other specified abnormal findings of blood chemistry; M16.11 Unilateral primary osteoarthritis, right hip; R53.83 Other fatigue | CPT/HCPCS: 80053; 80061; 84443 ==

== ENCOUNTER 2024-09-30 11:30 | Outpatient (CLI) | payer MEDICARE, SELFPAY | END 2024-09-30 11:31 | disposition home or self-care (01) | LOC: NFLDREF 10-03 15:26 | PROVIDERS: PCP Physician Assistant Medical; Referring Provider Physician Assistant Medical; Visit Provider Physician Assistant Medical | DX: Z51.81 Encounter for therapeutic drug level monitoring (principal); Z79.01 Long term (current) use of anticoagulants | CPT/HCPCS: 85610 ==

== ENCOUNTER 2024-10-16 14:52 | Outpatient (CLI) | payer MEDICARE, SELFPAY | END 2024-10-16 14:53 | disposition home or self-care (01) | LOC: NFLDREF 10-19 05:15 | PROVIDERS: PCP Physician Assistant Medical; Referring Provider Physician Assistant Medical; Visit Provider Physician Assistant Medical | DX: Z79.01 Long term (current) use of anticoagulants (principal); I48.91 Unspecified atrial fibrillation | CPT/HCPCS: 85610 ==

== ENCOUNTER 2024-11-04 11:08 | Outpatient (CLI) | payer MEDICARE, SELFPAY | END 2024-11-04 11:09 | disposition home or self-care (01) | LOC: NFLDREF 11-10 16:31 | PROVIDERS: PCP Physician Assistant Medical; Referring Provider Physician Assistant Medical; Visit Provider Physician Assistant Medical | DX: Z79.01 Long term (current) use of anticoagulants (principal); Z51.81 Encounter for therapeutic drug level monitoring | CPT/HCPCS: 85610 ==

== ENCOUNTER 2024-11-10 09:20 | Day surgery (SDC) | payer MEDICARE, SELFPAY ==
--- NOTE | 2024-10-22 11:54 | SUR.PREOP ---
patient procedure cancelled d/t INR 2.1.
[2024-10-22 11:55] LABS: INR, Point of Care* 2.1 (0.8-1.4)
--- NOTE | 2024-10-22 13:50 | PM.ORPN ---
Subjective Subjective Date Seen: 10/22/24 Interval history: Ruthann was set for a right total hip arthroplasty today. She has been off of her warfarin for 5 days. An INR checked yesterday showed a level of 2.4. She is otherwise ready for a right BIBI. Assessment and Plan Assessment and plan (1) Osteoarthritis of right hip: Problem details: Severe Status: Acute (2) Heart failure with reduced ejection fraction: Problem details: Longstanding history of heart failure with reduced ejection fraction thought secondary to chemotherapy for breast cancer. No previous history of coronary artery disease. No previous coronary angiogram. No clinical evidence of heart failure exacerbation Status: Acute (3) Anticoagulation goal of INR 2 to 3: Problem details: INR was 1.7 on admission and increased to 2 on discharge. Because she is on antibiotic will need close follow-up of INR and adjusting warfarin as needed. Did look into apixaban as an alternative. Cost was $475/month so patient elected to continue warfarin Levofloxacin will require changes in warfarin dosing. Close monitoring. Status: Acute Plan Ruthann was set for a right total hip arthroplasty today. She has been off of her warfarin for 5 days. An INR checked yesterday showed a level of 2.4. An INR checked today shows 2.1. This is too thin of blood to pursue a total hip arthroplasty on a fragile individual who has congestive heart failure. Therefore, we will cancel her surgery and pursue a future date to reschedule.
[2024-11-10] VITALS (29 sets, daily range): BP systolic 93–146; BP diastolic 46–86; PULSE 57–82; RESP 10–16; TEMP 35.8–37.1; O2SAT 92–98; BMI 30.4
[2024-11-10] MEDS: LACTATED RINGERS 1000 ML 1,000 ML 100 ML IV (09:30)
[2024-11-10 09:45] LABS: INR, Point of Care* 1.3 (0.8-1.4)
[2024-11-10] MEDS: ACETAMINOPHEN 500 MG TABLET 1000 MG PO ×3 (09:55→20:39)
--- NOTE | 2024-11-10 09:57 | W.PM.H&PU ---
History & Physical Update History & Physical Update H&P Reviewed and patient assessed: The following changes are noted below H&P Updates: INR point of care today is 1.3. Therefore, we will plan to proceed with Right BIBI
[2024-11-10] MEDS: SODIUM CHLORIDE 0.9 % (FLUSH) 10 ML SYRINGE IVF (10:37)
[2024-11-10] MEDS: MIDAZOLAM HCL 1 MG/ML inj IVP (10:55)
--- NOTE | 2024-11-10 11:05 | CRLHL7_ITS ---
For Patients: As a result of the Cures Act, medical imaging exams and procedure reports are released immediately into your electronic medical record. You may view this report before your referring provider. If you have questions, please contact your health care provider. HISTORY: Intraoperative. TECHNIQUE: Fluoroscopy provided intraoperatively during total hip arthroplasty. One spot film acquired. COMPARISON: 03/20/2024. FINDINGS: Single spot film demonstrates an intact right total hip arthroplasty. No fracture or dislocation. Components appropriately seated. IMPRESSION: 1. Spot film demonstrates an intact right total hip arthroplasty. Dictated by Harish Gonzalez MD @ 11/12/2024 5:49:52 AM (Electronically Signed)
--- NOTE | 2024-11-10 11:13 | SUR.PREOP ---
TIME?OUT:?1055 PT/mare peterson RN/cindi monterroso MDA?VERIFICATION?OF?SURGICAL?SITE,?PROCEDURE,?AND?CONSENT OBTAINED?PRIOR?TO?INVASIVE?PROCEDURE.
[2024-11-10] MEDS: TRANEXAMIC ACID 100 MG/ML INJ 1000 MG IV (11:32)
--- NOTE | 2024-11-10 11:38 | CRLHL7_ITS ---
For Patients: As a result of the Cures Act, medical imaging exams and procedure reports are released immediately into your electronic medical record. You may view this report before your referring provider. If you have questions, please contact your health care provider. HISTORY: Total hip arthroplasty. TECHNIQUE: AP pelvis and lateral view right hip. COMPARISON: 11/10/2024. FINDINGS: Intact right total hip arthroplasty. Components are appropriately seated. No periprosthetic fracture or dislocation. Soft tissue gas is present. IMPRESSION: 1. Intact right total hip arthroplasty. Dictated by Harish Gonzalez MD @ 11/12/2024 6:06:30 AM (Electronically Signed)
--- NOTE | 2024-11-10 12:51 | PM.ORPRC ---
Procedure Note Date of procedure: 11/10/24 Procedure: PREOPERATIVE DIAGNOSIS: 1. Right hip osteoarthritis, severe, primary POSTOPERATIVE DIAGNOSIS: 1. Right hip osteoarthritis, severe, primary PROCEDURE: 1. Right total hip arthroplasty-anterior approach 2. 54794 - intraoperative fluoroscopy up to 1 hour. SURGEON: Bertrand Grady MD. FAGOT HEATER: Torey Pendleton PA-C; JENNIFER Lawson - Of note, a skilled assistant store manager sales was critical for this case to aid in patient positioning, tissue retraction, limb manipulation/positioning, and closure. ANESTHESIA: Spinal anesthetic EBL: 200ml IMPLANTS: DePuy J&J uncemented total hip [place] cup size 48, hole eliminator, +0 neutral liner Actis stem, standard offset, size 6 +1 mm ceramic 32mm head COMPLICATIONS: None evident INDICATIONS: The patient is a pleasant 84-year-old female who has experienced severe right hip pain and difficulty bearing weight. Workup included x-rays which revealed severe osteoarthrosis in the hip. Given the deformity, the dysfunction, and the pain, as well as the failure of nonoperative management, recommendation was made for surgery. FINDINGS: Full-thickness chondral loss diffusely throughout the femoral head and acetabulum. Osteophytes on the femoral head/neck junction. Moderate effusion upon entering the joint. DESCRIPTION OF PROCEDURE: Following a thorough discussion of risks, benefits, and alternatives consent was obtained and the right hip was marked. The patient was brought to the operating room and placed supine on the operating table. Induction of anesthesia was undertaken. 1 g IV Ancef and 1 g tranexamic acid was administered within 1 hr of incision preoperatively. Proper time-out was performed identifying proper patient, site, procedure. The operative extremity was prepped and draped in the appropriate sterile fashion using ChloraPrep after the patient was positioned on the [place] table with head in neutral alignment and all bony prominences well padded. C-arm fluoroscopic imaging was utilized to confirm proper pelvis rotation and position, and to get true AP films of both the contralateral left, and the affected right hip. This is for comparison. A longitudinal incision was made starting approximately 1 cm distal to the ASIS, and 2-3 cm lateral. The incision was extended distally aiming toward the fibular head. Sharp incision through skin and bovie cautery through the subcutaneous tissue allowed identification of the TFL fascia. This was sharply divided, and the fascia bluntly released from the muscle fibers as we dissected medial. Upon coming to the medial border, we were able to retract the TFL laterally, and penetrated the deeper fascia and identify the crossing circumflex vessels. These were ligated/cauterized. The rectus was elevated from the capsule, and retractors placed laterally and medially along the femoral neck to help with visualization of the capsule. We then performed an inverted T capsulotomy. The capsule was tagged for later repair. Retractors were placed inside the capsule. The femoral neck was visualized after releasing medially down to the lesser trochanter, along the saddle laterally, and up onto the acetabulum. The femoral neck cut was made in line with our preoperative templating. The head was removed in a single piece, and sized. We turned our attention to acetabular preparation. Initially, the labrum was resected from around the perimeter, the pulvinar was excised, allowing us to visualize the false wall. We started the reaming with a 43 mm reamer. This was medialized down to the true wall. We then enlarged our reamers sequentially up to one size less than the selected cup size. We trialed at the same size and found it to have an excellent fit. The selected cup was then opened, inserted, and impacted in line with the goal of 40? of abduction, and 20-25? of anteversion. This was confirmed on C-arm fluoroscopic imaging to be in the appropriate/goal position. Once the cup was placed we placed a hole eliminator and a liner consistent with preop planning. Attention was turned to the femoral preparation. The limb was extended, externally rotated, and adducted. The posteromedial capsule was released, as retractors were placed allowing excellent access to the proximal femur. Initially a box toe cementer was followed by canal finder followed by various broaches. We broached sequentially up to the size noted above, found it to have excellent rotational control, and trialing various heads and necks, revealed that appropriate neck offset, and the above noted head size provided the greatest stability, and adventism of length, and offset. C-arm fluoroscopic imaging confirmed position of the stem, as well as leg lengths, which were compared with the pre procedure all fluoroscopic images. Trial implants were removed, the real femoral stem inserted, as was the appropriate head. After reducing, the leg was placed through range of motion and stability was confirmed anterior, posterior, and lateral. A 3 min Betadine soak was then performed, and thorough irrigation with normal saline followed. Closure of the capsule was performed with #1 PDS. Bleeding was confirmed to be controlled at this stage, and the TFL fascia was closed with #0 strata fix. Subcutaneous, and subcuticular closure was performed with 2-0 Stratafix and 4-0 Stratafix, respectively. Dressings were applied, and the patient was awoken from anesthesia and transferred the PACU in stable condition. A skilled assistant store manager sales was critical for this case to aid in patient positioning, tissue retraction, acetabular and proximal femoral exposure, limb manipulation/positioning, dislocation/relocation, patient safety, and closure. PLAN: 1. Weight bear as tolerated operative extremity. 2. 23 hr perioperative antibiotics. 3. Ice. 4. PT/OT consults for ambulation assistance/mobility education. 5. Social work consult for discharge planning. 6. [place] [facility] [place] and [place] will return to her warfarin use.
--- NOTE | 2024-11-10 13:29 | P.ANES_ITS ---
Anesthesia Charges Start Date/Time Anesthesia Start Date: 11/10/24 Anesthesia Start Time: 11:17 Stop Date/Time Anesthesia Stop Date: 11/10/24 Anesthesia Stop Time: 13:30 Summary Extremes of Age - Over 70 or under 1: MDA Coding CPT Codes CPT Codes: ANESTH HIP ARTHROPLASTY - 01787 ([id number]) P4 - PT W/SEV SYS DIS THREAT LIFE, QK - TELECOMMUNICATIONS SALES REPRESENTATIVE 2-4 CNCRNT ANES PROC, QX - FILTER PULP WASHER SVC W/ MD MED DIRECTION Additional Codes: Summary - Extremes of Age - Over 70 or under 1: MDA ([id number])
--- NOTE | 2024-11-10 13:29 | P.NB_ITS ---
Nerve Block Nerve Block Time Seen by Provider: 11:00 Date Seen: 11/10/24 Type of block requested by surgeon for post-operative analgesia: RANJITH/LFCN Side: right Time out performed: Yes Verification of patient name: Yes Verification of date of : Yes Site marking: site marked Name of person performing procedure: Valentin Continuous monitoring Was continuous monitoring of O2 sat, B/P, helper electrical, recorded every 15 minutes?: Yes Procedure Checklist: sterile prep, needles and gloves Ultrasound guided. Images saved: Yes Medications given in 5ml increments after negative aspiration: Ropivicaine %: 0.5 mL: 30 Needle gauge: 20 Precedex (mcg): 25 Patient tolerated procedure well: Yes Additional comments: Needle noted below psoas tendon needle noted adjacent to LFCN Block Charges Block Charge (with Pro Fee): Other Periph Nerve Block Use of Ultrasound Machine for Block: Yes- US Guidance/pain block
--- NOTE | 2024-11-10 13:29 | W.ANESCHARGE ---
Anesthesia Charges Start Date/Time Anesthesia Start Date: 11/10/24 Anesthesia Start Time: 11:17 Stop Date/Time Anesthesia Stop Date: 11/10/24 Anesthesia Stop Time: 13:30 Summary Extremes of Age - Over 70 or under 1: MDA Coding CPT Codes CPT Codes: ANESTH HIP ARTHROPLASTY - 58800 ([id number]) P4 - PT W/SEV SYS DIS THREAT LIFE, QK - FIRST ASSISTANT 2-4 CNCRNT ANES PROC, QX - ENGINEERING PRODUCTION WORKER SVC W/ MD MED DIRECTION Additional Codes: Summary - Extremes of Age - Over 70 or under 1: MDA ([id number])
--- NOTE | 2024-11-10 13:41 | P.ANES_ITS ---
Anesthesia Charges Start Date/Time Anesthesia Start Date: 11/10/24 Anesthesia Start Time: 11:17 Stop Date/Time Anesthesia Stop Date: 11/10/24 Anesthesia Stop Time: 13:30 Summary Extremes of Age - Over 70 or under 1: MOTOR CARRIER INSPECTOR Coding CPT Codes CPT Codes: ANESTH HIP ARTHROPLASTY - 40451 ([id number]) P4 - PT W/SEV SYS DIS THREAT LIFE, QK - AGENT TICKETING GATE 2-4 CNCRNT ANES PROC, QX - MOTOR CARRIER INSPECTOR SVC W/ MD MED DIRECTION Additional Codes: Summary - Extremes of Age - Over 70 or under 1: MOTOR CARRIER INSPECTOR ([id number])
--- NOTE | 2024-11-10 13:41 | W.ANESCHARGE ---
Anesthesia Charges Start Date/Time Anesthesia Start Date: 11/10/24 Anesthesia Start Time: 11:17 Stop Date/Time Anesthesia Stop Date: 11/10/24 Anesthesia Stop Time: 13:30 Summary Extremes of Age - Over 70 or under 1: KNIT GOODS MENDER Coding CPT Codes CPT Codes: ANESTH HIP ARTHROPLASTY - 40455 ([id number]) P4 - PT W/SEV SYS DIS THREAT LIFE, QK - FOOD SERVICE DRIVER 2-4 CNCRNT ANES PROC, QX - KNIT GOODS MENDER SVC W/ MD MED DIRECTION Additional Codes: Summary - Extremes of Age - Over 70 or under 1: KNIT GOODS MENDER ([id number])
[2024-11-10] MEDS: PHENYLEPHRINE 100 MCG/ML SYRINGE IVP (13:45)
--- NOTE | 2024-11-10 16:49 | PM.IMCN1 ---
Date of Consult Patient: [facility] Patient Consult date: 11/10/24 Requesting Physician: Orthopedics Primary Care Provider: Sanjuanita Goldman PA-C Consult Narrative Reason for consult: Management of medical problems including advanced heart disease. Narrative: Ruthann Castle is a 84 year old female with heart failure with reduced ejection fraction of 25-30% with defibrillator, chronic vertigo, atrial fibrillation, history of breast cancer and lymphoma admitted for elective right hip arthroplasty. She did see insole rasper at the end of August for preop evaluation and no further evaluation or treatment was recommended at that time. She reports generally doing well since that time without any significant new or changing cardia respiratory symptoms. Procedures performed by Dr. Grady without complications. Request consultation for management of medical problems. Postoperatively she reports generally she is feeling well. She was chilled but is now warmed up. She is mildly hypoxic but weaning off of supplemental oxygen. She has no dyspnea. Pain is well managed. She is quite sleepy. She reports preoperatively she is also feeling well without any other concerns. Review of Systems Narrative: She reports feeling well recently without recent illness or injury. Medical problems are well managed by her report. [facility] Medical History (Updated 11/10/24 @ 17:28 by Corwin Hastings MD) POLST (Physician Orders for Life-Sustaining Treatment) ?Z78.9 - Other specified health status (ICD-10) Heart failure with reduced ejection fraction ?I50.20 - Unspecified systolic (congestive) heart failure (ICD-10) NSTEMI (non-ST elevated myocardial infarction) ?I21.4 - Non-ST elevation (NSTEMI) myocardial infarction (ICD-10) Elevated procalcitonin ?R79.89 - Other specified abnormal findings of blood chemistry (ICD-10) Atrial fibrillation ?I48.91 - Unspecified atrial fibrillation (ICD-10) Migration of pancreatic stent ?T85.528A - Displacement of other gastrointestinal prosthetic devices, implants and grafts, initial encounter (ICD-10) Malignant neoplasm of breast (06/04/12) ?C50.919 - Malignant neoplasm of unspecified site of unspecified female breast (ICD-10) Lymphedema of upper extremity ?I89.0 - Lymphedema, not elsewhere classified (ICD-10) History of non-Hodgkin's lymphoma (06/04/12) ?Z85.72 - Personal history of non-Hodgkin lymphomas (ICD-10) History of herpes zoster (11/25/12) ?Z86.19 - Personal history of other infectious and parasitic diseases (ICD-10) Cyst of pancreas ?K86.2 - Cyst of pancreas (ICD-10) Chronic kidney disease ?N18.9 - Chronic kidney disease, unspecified (ICD-10) Acute gallstone pancreatitis ?K85.10 - Biliary acute pancreatitis without necrosis or infection (ICD-10) Surgical History (Updated 11/10/24 @ 17:27 by Corwin Hastings MD) History of total right hip arthroplasty (11/10/24) ?Z96.641 - Presence of right artificial hip joint (ICD-10) History of lumpectomy (1998) ?Z98.890 - Other specified postprocedural states (ICD-10) History of endoscopic retrograde cholangiopancreatography ?Z98.890 - Other specified postprocedural states (ICD-10) History of cholecystectomy ?Z90.49 - Acquired absence of other specified parts of digestive tract (ICD-10) History of breast biopsy (06/04/12) ?Z98.890 - Other specified postprocedural states (ICD-10) History of atrioventricular mayito ablation (06/04/12) ?Z98.890 - Other specified postprocedural states (ICD-10) Social History (Updated 11/10/24 @ 17:24 by Corwin Hastings MD) Narrative: She lives alone in [place]. She lives with her 2 dogs and 2 cats. Her son Jayden is designated healthcare power of contracts attorney. Code status is full. She does not smoke. She drinks alcohol about once a month. Highest level of school completed/degree received: Associate degree: occupational, technical, vocational program Smoking Status: Never smoker Do you use any of these nicotine containing products: None Second hand tobacco smoke exposure: No How often do you have a drink containing alcohol: monthly or less AUDIT-C Alcohol total score: 1 Non-prescribed substance use: denies use Caffeine: Yes service: No Meds Home Medications and Allergies Home Medications ?Medication ?Instructions ?Recorded ?Confirmed ?Type melatonin 5 mg capsule 5 mg PO HS PRN 10/14/21 11/10/24 History enalapril maleate 20 mg tablet 20 mg PO BID #180 tabs 08/06/23 11/10/24 Rx peg 380-zcochylhhoty-rhmytifa 1 1 drp ophthalmic (eye) TID-QID PRN 09/19/23 11/10/24 History %-0.2 %-0.2 % eye drops (Dry Eye Relief) carvedilol 25 mg tablet 25 mg PO BID #180 tabs 03/18/24 11/10/24 Rx amiodarone 200 mg tablet 100 mg (1/2 x 200 mg) PO DAILY #45 03/24/24 11/10/24 Rx tabs latanoprost 0.005 % eye drops 1 drp ophthalmic (eye) HS 07/29/24 11/10/24 History warfarin 1 mg tablet 3 mg PO DAILY #260 tabs 09/09/24 11/10/24 Rx furosemide 20 mg tablet 20 mg PO DAILY 09/11/24 11/10/24 History cyanocobalamin (vitamin B-12) 1,000 mcg subcut Q30D 10/22/24 10/22/24 History 1,000 mcg/mL injection solution warfarin 2.5 mg tablet 2.5 mg PO QDAY #30 tabs 10/23/24 11/10/24 Rx acetaminophen 500 mg capsule 500 - 1,000 mg (1 - 2 x 500 mg) PO 11/10/24 Rx Q6H PRN #100 caps sennosides 8.6 mg-docusate sodium 1 - 4 tab-cap (1 - 4 x 8.6-50 mg) 11/10/24 Rx 50 mg tablet (Senna-S) PO BID PRN constipation #60 tabs Allergies Allergy/AdvReac Type Severity Reaction Status Date / Time oxycodone Allergy Unknown Confusion Verified 11/10/24 10:30 Exam Narrative: Exam Narrative: She is sleepy but arouses to voice. She is breathing comfortably with oxygen at 1 L per nasal cannula and O2 sats at 97%. Eyes normal. Oropharynx with dry mucous membranes otherwise normal. Neck is supple without mass or adenopathy. Respirations are clear to auscultation. Good air exchange all lung aguiar no wheezing rales or rhonchi. Cardiovascular: S1, S2, regular rate and rhythm. Abdomen: Bowel sounds active. Abdomen is soft without tenderness or mass. Extremities without edema. She has intact pulses and sensation in all 4 extremities. Moves feet and ankles well. Const: Vital Signs, click to edit/add: Vital Signs - 24 hr 11/10/24 10:31 11/10/24 10:55 11/10/24 11:00 Temperature 97.8 F Pulse Rate 70 71 65 Pulse Rate [Pulse Oximeter] Respiratory Rate 16 16 16 Blood Pressure 113/60 115/71 108/57 L Pulse Oximetry 95 97 97 Oxygen Delivery Me thod Room Air Nasal Cannula Nasal Cannula Oxygen Flow Rate 3 3 11/10/24 13:25 11/10/24 13:30 11/10/24 13:35 Temperature 98.5 F Pulse Rate 82 67 65 Pulse Rate [Pulse Oximeter] Respiratory Rate 10 L 12 13 Blood Pressure 93/46 L 94/49 L 98/52 L Pulse Oximetry 92 93 92 Oxygen Delivery Me thod Nasal Cannula Oxygen Flow Rate 4 11/10/24 13:40 11/10/24 13:45 11/10/24 13:50 Temperature Pulse Rate 69 66 66 Pulse Rate [Pulse Oximeter] Respiratory Rate 12 11 L 12 Blood Pressure 102/58 L 116/70 128/70 Pulse Oximetry 92 92 93 Oxygen Delivery Me thod Oxygen Flow Rate 2 11/10/24 13:55 11/10/24 14:00 11/10/24 14:05 Temperature Pulse Rate 66 66 62 Pulse Rate [Pulse Oximeter] Respiratory Rate 10 L 11 L 10 L Blood Pressure 120/62 121/65 119/64 Pulse Oximetry 94 96 97 Oxygen Delivery Me thod Oxygen Flow Rate 11/10/24 14:10 11/10/24 14:15 11/10/24 14:25 Temperature 98.8 F 98.5 F Pulse Rate 63 58 L 63 Pulse Rate [Pulse Oximeter] Respiratory Rate 11 L 12 16 Blood Pressure 120/66 130/74 131/64 Pulse Oximetry 95 97 95 Oxygen Delivery Me thod Room Air Room Air Oxygen Flow Rate 11/10/24 14:30 11/10/24 14:45 11/10/24 15:00 Temperature 98.5 F 98.3 F Pulse Rate 62 62 Pulse Rate [Pulse Oximeter] 61 Respiratory Rate 16 16 16 Blood Pressure 133/69 132/66 Pulse Oximetry 95 95 Oxygen Delivery Me thod Room Air Nasal Cannula Oxygen Flow Rate 1 11/10/24 15:00 11/10/24 15:00 11/10/24 15:15 Temperature 98.3 F 98.3 F Pulse Rate 61 60 Pulse Rate [Pulse Oximeter] Respiratory Rate 16 16 16 Blood Pressure 131/59 L 131/59 L Pulse Oximetry 95 95 98 Oxygen Delivery Me thod Nasal Cannula Nasal Cannula Nasal Cannula Oxygen Flow Rate 1 1.5 1.5 11/10/24 15:45 11/10/24 16:15 Temperature 97.6 F 97.6 F Pulse Rate 60 61 Pulse Rate [Pulse Oximeter] Respiratory Rate 16 16 Blood Pressure 128/59 L 129/62 Pulse Oximetry 98 98 Oxygen Delivery Me thod Nasal Cannula Nasal Cannula Oxygen Flow Rate 1 1 Documenting provider has reviewed patient's vital signs: yes Assessment and Plan Assessment and plan (1) History of total right hip arthroplasty: Problem comment: Right total hip arthroplasty-anterior approach (11/10/2024, Dr. Grady). Routine management of pain and therapy. Monitor and manage blood pressure and fluid resuscitation cautiously with heart failure Status: Acute (2) Postoperative hypoxia: Problem comment: Likely this is due to sedation after surgery. Continue to monitor. Further evaluation if not weaned off oxygen by tomorrow Status: Acute (3) Heart failure with reduced ejection fraction: Problem comment: Longstanding history of heart failure with reduced ejection fraction thought secondary to chemotherapy for breast cancer. No previous history of coronary artery disease. Caution with fluid resuscitation. Closely monitor vital signs. Status: Acute (4) Presence of implantable cardioverter-defibrillator (ICD): Status: Acute (5) Anticoagulation goal of INR 2 to 3: Problem comment: Resume warfarin for AFib, INR 2-3, and 4 VTE prophylaxis Status: Acute Plan 84-year-old female with advanced heart failure, atrial fibrillation, anticoagulation now status post hip arthroplasty. Routine management of pain. Routine therapy. Close monitoring of vital signs, cardia respiratory status, fluid resuscitation and medication for heart failure. Total Time Spent Total Time Spent: Total time spent today is 50 minutes in reviewing outside records, coordination of care, discussion with patient and other providers ongoing management of heart failure and management after hip surgery
[2024-11-10] MEDS: WARFARIN 2 MG TABLET 4 MG PO (17:50)
[2024-11-10] MEDS: CEFAZOLIN 1 GM in 0.9 % SODIUM CHLORIDE Mini-bag 100 ML IVPB (17:53)
--- NOTE | 2024-11-10 18:56 | PC.NURSE ---
End of shift, patient a/o x4. VSS, on RA afebrile this shift. Patient has active ice to op site. PRN dilauded admin x1. patient denies N/V/SOB. Patient did not get out of bed yet d/t Hx of vertigo. encouraged patient to sit at bedside and dangle later. Patient is agreeable to activity later. Patient has right arm restriction. IV patent. malorie plexi pulses in use.
[2024-11-10] MEDS: LACTATED RINGERS 1000 ML 1,000 ML 75 ML IV (19:49)
[2024-11-10] MEDS: ONDANSETRON 2 MG/ML inj 4 MG IVP (20:38)
[2024-11-10] MEDS: SENNOSIDES 1 TAB TABLET 2 TAB PO (20:39)
[2024-11-10] MEDS: ENALAPRIL MALEATE 10 MG TABLET 20 MG PO (20:42)
[2024-11-10] MEDS: LATANOPROST 0.005% OPHTH 1 DROP EYE-BOTH (20:43)
[2024-11-11] MEDS: CEFAZOLIN 1 GM in 0.9 % SODIUM CHLORIDE Mini-bag 100 ML IVPB (01:42)
[2024-11-11] MEDS: ACETAMINOPHEN 500 MG TABLET 1000 MG PO ×2 (02:47→10:49)
[2024-11-11 02:52] VITALS: BP 117/60; PULSE 68; RESP 14; TEMP 36.2; O2SAT 93
--- NOTE | 2024-11-11 05:08 | PC.NURSE ---
end of shift: Pt is pleasant. AOx4. VSS. Pt. reports >6 pain; meds given-see EMAR. Pt. up to bedside commode with two RN assist. Pt. reports dizziness and vertigo. Pt. reports nausea and one episode of emesis following bites of toast. Tolerating clear liquids. Dressing is C/D/I/. No redness or swelling at incision site. Active ice applied. +
[2024-11-11 06:55] LABS: INR 1.36 (0.91-1.10); Prothrombin Time 17.7 Seconds
[2024-11-11 07:00] VITALS: BP 114/54; PULSE 68; RESP 16; TEMP 36.7; O2SAT 95
[2024-11-11] MEDS: FUROSEMIDE 20 MG TABLET PO (09:11)
[2024-11-11] MEDS: SENNOSIDES 1 TAB TABLET 2 TAB PO (09:11)
[2024-11-11] MEDS: AMIODARONE 200 MG TABLET 100 MG PO (09:12)
[2024-11-11] MEDS: ENALAPRIL MALEATE 10 MG TABLET 20 MG PO (09:14)
--- NOTE | 2024-11-11 10:11 | PC.SOCIAL ---
Discharge planning: SW met with patient and patient's daughter. Patient and daughter state that they have everything they need for discharge and at home. SW to assist if needs arise.
--- NOTE | 2024-11-11 11:30 | P.ORPN_ITS ---
Subjective Subjective Date Seen: 11/11/24 Principal diagnosis: Status postop day 1, right total hip arthroplasty - anterior approach Interval history: Patient reports doing well. No acute events over night. She had 1 bout of nausea and vomiting which has since subsided. Expresses some concern about her chronic vertigo, which makes her a little cautious with standing and walking. Pain managed with scheduled and PRN medications, ice. DVT prophylaxis: Coumad in with no Lovenox bridging, SCDs, walking. Denies fevers, chills, aches, CP, SOB/GARCIA, or lightheadedness. Ortho Exam Narrative Exam Narrative: -Patient appears comfortable in bed; no apparent acute distress -Alert and oriented times 3 -Operative hip mildly swollen; soft tissues supple; no obvious erythema. No significant ecchymosis. Warmth appropriate. Abdominal pannus covers proximal 2/3 of bandage/wound -Surgical dressing clean, dry, predominantly intact, with some adhesion coming off inguinal region region of the bandage, where there is some moisture; no obvious drainage, no erythematous streaking peripheral to the bandage -Bilateral calves soft and supple; no significant swelling, edema, tenderness, erythema, discoloration, warmth, or palpable cords -2+ DP/PT pulses, intact dermatomes and myotomes distally (5/5 strength). Mild numbness about the lateral femoral cutaneous nerve distribution. Const Vital Signs, click to edit/add: Vital Signs - 24 hr 11/10/24 13:25 11/10/24 13:30 11/10/24 13:35 Temperature 98.5 F Pulse Rate 82 67 65 Pulse Rate [Pulse Oximeter] Respiratory Rate 10 L 12 13 Blood Pressure 93/46 L 94/49 L 98/52 L Blood Pressure [Left Arm] Pulse Oximetry 92 93 92 Oxygen Delivery Method Nasal Cannula Oxygen Flow Rate 4 11/10/24 13:40 11/10/24 13:45 11/10/24 13:50 Temperature Pulse Rate 69 66 66 Pulse Rate [Pulse Oximeter] Respiratory Rate 12 11 L 12 Blood Pressure 102/58 L 116/70 128/70 Blood Pressure [Left Arm] Pulse Oximetry 92 92 93 Oxygen Delivery Method Oxygen Flow Rate 2 11/10/24 13:55 11/10/24 14:00 11/10/24 14:05 Temperature Pulse Rate 66 66 62 Pulse Rate [Pulse Oximeter] Respiratory Rate 10 L 11 L 10 L Blood Pressure 120/62 121/65 119/64 Blood Pressure [Left Arm] Pulse Oximetry 94 96 97 Oxygen Delivery Method Oxygen Flow Rate 11/10/24 14:10 11/10/24 14:15 11/10/24 14:25 Temperature 98.8 F 98.5 F Pulse Rate 63 58 L 63 Pulse Rate [Pulse Oximeter] Respiratory Rate 11 L 12 16 Blood Pressure 120/66 130/74 131/64 Blood Pressure [Left Arm] Pulse Oximetry 95 97 95 Oxygen Delivery Method Room Air Room Air Oxygen Flow Rate 11/10/24 14:30 11/10/24 14:45 11/10/24 15:00 Temperature 98.5 F 98.3 F Pulse Rate 62 62 Pulse Rate [Pulse Oximeter] 61 Respiratory Rate 16 16 16 Blood Pressure 133/69 132/66 Blood Pressure [Left Arm] Pulse Oximetry 95 95 Oxygen Delivery Method Room Air Nasal Cannula Oxygen Flow Rate 1 11/10/24 15:00 11/10/24 15:00 11/10/24 15:15 Temperature 98.3 F 98.3 F Pulse Rate 61 60 Pulse Rate [Pulse Oximeter] Respiratory Rate 16 16 16 Blood Pressure 131/59 L 131/59 L Blood Pressure [Left Arm] Pulse Oximetry 95 95 98 Oxygen Delivery Method Nasal Cannula Nasal Cannula Nasal Cannula Oxygen Flow Rate 1 1.5 1.5 11/10/24 15:45 11/10/24 16:15 11/10/24 17:15 Temperature 97.6 F 97.6 F 97.6 F Pulse Rate 60 61 58 L Pulse Rate [Pulse Oximeter] Respiratory Rate 16 16 16 Blood Pressure 128/59 L 129/62 128/66 Blood Pressure [Left Arm] Pulse Oximetry 98 98 93 Oxygen Delivery Method Nasal Cannula Nasal Cannula Room Air Oxygen Flow Rate 1 1 11/10/24 18:15 11/10/24 18:15 11/10/24 19:15 Temperature 97.6 F 96.9 F L Pulse Rate 57 L 61 63 Pulse Rate [Pulse Oximeter] Respiratory Rate 16 16 Blood Pressure 130/86 135/61 Blood Pressure [Left Arm] Pulse Oximetry 93 95 Oxygen Delivery Method Room Air Room Air Oxygen Flow Rate 11/10/24 20:33 11/10/24 21:48 11/10/24 23:00 Temperature 96.6 F L Pulse Rate 69 Pulse Rate [Pulse Oximeter] 68 Respiratory Rate 16 16 Blood Pressure 146/70 H Blood Pressure [Left Arm] 141/77 H Pulse Oximetry 98 Oxygen Delivery Method Room Air Oxygen Flow Rate 11/10/24 23:39 11/10/24 23:40 11/11/24 02:52 Temperature 96.5 F L 97.1 F L Pulse Rate Pulse Rate [Pulse Oximeter] 68 68 Respiratory Rate 16 16 14 Blood Pressure Blood Pressure [Left Arm] 116/60 117/60 Pulse Oximetry 97 97 93 Oxygen Delivery Method Room Air Room Air Room Air Oxygen Flow Rate 11/11/24 07:00 11/11/24 07:00 11/11/24 07:00 Temperature 98.0 F Pulse Rate Pulse Rate [Pulse Oximeter] 68 Respiratory Rate 16 16 Blood Pressure Blood Pressure [Left Arm] 114/54 L Pulse Oximetry 95 Oxygen Delivery Method Room Air Room Air Oxygen Flow Rate Assessment and Plan Assessment and plan (1) History of total right hip arthroplasty: Problem details: Right total hip arthroplasty-anterior approach (11/10/2024, Dr. Grady). Routine management of pain and therapy. Monitor and manage blood pressure and fluid resuscitation cautiously with heart failure Status: Acute (2) Postoperative hypoxia: Problem details: Likely this is due to sedation after surgery. Continue to monitor. 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 No previous history of coronary artery disease. Caution with fluid resuscitation. Closely monitor vital signs. Status: Acute (4) Presence of implantable cardioverter-defibrillator (ICD): Status: Acute (5) Anticoagulation goal of INR 2 to 3: Problem details: Resume warfarin for AFib, INR 2-3, and 4 VTE prophylaxis (Continue 2.5mg coumadin at home for discharge, and follow up with PCP for INR 11/13/24) Status: Acute Plan - Complete 23 hour perioperative antibiotics. - PT/OT consult for education and assistance. - Social work consult for discharge planning - Prescribed analgesics as needed - minimize use of oral narcotics - DVT prophylaxis: Continue 2.5 mg Coumadin as previously prescribed, with INR check 11/13/2024 with PCP in [place]. PCP should follow INR postoperatively. Continue walking, and use of SCDs - Anticipation is for discharge to home with family/friends today 11/11/2024 if the patient remains medically stable, pain is controlled, and they are safe with mobilization.
--- NOTE | 2024-11-11 12:55 | PC.NURSE ---
Discharge: VSS, patient on Ra. tolerating a reg diet. denies N/V/SOB. rates pain 2/10 Premedicated prior to therapy. Active Ice to op site. Discharged to home today at 1158 accompanied by dtr. Discharge instructions given and signed. Belongings sheet signed. Patient verbalized understanding of instructions. IV removed tip intact.
== END 2024-11-11 11:58 | disposition home or self-care (01) ==
LOC: MEDSURG 09:25
PROVIDERS: Anesthesiology; Family Medicine; PCP Physician Assistant Medical; Visit Provider Orthopaedic Surgery Sports Medicine
PROC: (CPT 27130; principal; 2024-11-10 10:45)
DX: M16.11 Unilateral primary osteoarthritis, right hip (principal); G89.18 Other acute postprocedural pain; R09.02 Hypoxemia; R42 Dizziness and giddiness; Z79.01 Long term (current) use of anticoagulants; I48.91 Unspecified atrial fibrillation; Z95.810 Presence of automatic (implantable) cardiac defibrillator; Z85.72 Personal history of non-Hodgkin lymphomas; Z85.3 Personal history of malignant neoplasm of breast; I50.20 Unspecified systolic (congestive) heart failure; N18.9 Chronic kidney disease, unspecified
CPT/HCPCS: 27130; 01214; 36415; 73501; 76000; 76942; 85610; 86850; 86900; 86901; 97110; 97116; 97161; 97165; 97535; 99100; A9270; C1776; J0330; J0690; J1100; J1171; J2250; J2371; J2405; J2704; J2710; J2795; J3010; J3490; J7120

== ENCOUNTER 2025-01-08 13:41 | Outpatient (CLI) | payer MEDICARE, SELFPAY ==
--- NOTE | 2025-01-08 14:00 | CRLHL7_ITS ---
For Patients: As a result of the Century Cures Act, medical imaging exams and procedure reports are released immediately into your electronic medical record. You may view this report before your referring provider. If you have questions, please contact your health care provider. INDICATION: BILATERAL SCREENING MAMMOGRAM, ASYMPTOMATIC 84 Y/O FEMALE COMPARISON: 11/20/2023, 10/19/2020, 10/13/2019 TECHNIQUE: Digital mammogram in CC and MLO projections including computer-aided detection (CAD) and tomosynthesis. BREAST COMPOSITION: There are scattered areas of fibroglandular density. FINDINGS: No suspicious findings. ASSESSMENT: BI-RADS 2 Benign RECOMMENDATION: Annual screening mammogram. A lay language report of this examination will be provided to the patient. Dictated by: Arvind Posada MD @ 01/09/2025 09:02:47 (Electronically Signed)
== END 2025-01-08 13:42 | disposition home or self-care (01) ==
LOC: MAMMO 13:42
PROVIDERS: PCP Physician Assistant Medical; Visit Provider Physician Assistant Medical
DX: Z12.31 Encounter for screening mammogram for malignant neoplasm of breast (principal)
CPT/HCPCS: 77063; 77067